=== PATIENT | female | born 2000 | race Caucasian/White ===

== ENCOUNTER 2021-11-14 11:34 | Emergency (ER) | payer OTHER, SELFPAY ==
--- NOTE | ~2021-11-14 | CT_ITS ---
EXAMINATION: CT HEAD WITHOUT CONTRAST CLINICAL INFORMATION: Headache COMPARISON: None TECHNIQUE: Contiguous axial imaging was performed from the skull base to vertex without intravenous administration of contrast. This CT examination was performed using dose optimization techniques as appropriate, variously including the following: *Automated exposure control *Adjustment of mA and/or kV according to patient size (this includes techniques or standardized protocols for targeted exams where dose is matched to indication/reason for exam; i.e. extremities or head) *Use of iterative reconstruction technique DLP: 698 mGy-cm FINDINGS: There is no evidence of acute intracranial hemorrhage or territorial infarction. No abnormal mass effect or midline shift is seen. Allen to white matter differentiation is well preserved. No extra-axial fluid collections are identified. The ventricles are normal in size. There is no abnormal attenuation within the brain parenchyma. The osseous structures and soft tissues are normal. The mastoid air cells and visualized portions of the paranasal sinuses are well aerated. CT/CT head/brain wo con IMPRESSION: No acute intracranial process seen.
[2021-11-14 11:53] VITALS: BP 114/81; PULSE 103; RESP 18; TEMP 36.9; O2SAT 100; BMI 46.4
[2021-11-14 12:18] LABS: MANUAL DIFF FLAG NO
[2021-11-14 12:19] LABS: Basophils Percent Auto 0.3 % (0-2); Eosinophils Absolute Auto 0.2 X10*3/uL (0.0-0.4); Eosinophils Percent Auto 1.9 % (0-4); Hematocrit 36.2 % (37.0-47.0); Hemoglobin 11.1 g/dl (12.0-16.0); Imm Gran Abs Auto 0.06 X10*3/uL (0.00-0.03); Imm Gran Pct Auto 0.6 % (0.0-0.4); Lymphocytes Absolute Auto 2.2 X10*3/uL (1.2-4.9); Mean Corpuscular HGB Conc 30.7 g/dl (31.0-35.0); Mean Corpuscular Hemoglobin 26.7 pg (27.0-33.0); Mean Platelet Volume 8.4 fL (9.4-12.3); Monocytes Absolute Auto 0.6 X10*3/uL (0.1-1.2); Monocytes Percent Auto 6.6 % (2-11); Neutrophils Absolute Auto 6.5 x10*3/uL (2.0-8.3); Neutrophils Percent Auto 67.6 % (45-73); Platelet Count 251 X10*3/uL (160-400); Red Blood Count 4.16 X10*6/uL (4.20-5.50); Red Cell Distribution Width 13.2 % (11.0-16.0); White Blood Count 9.6 X10*3/uL (4.8-10.8)
[2021-11-14 12:46] LABS: Anion Gap 12 (12-20); Blood Urea Nitrogen 16 mg/dL (9-16); Calcium 8.6 mg/dL (8.4-10.2); Carbon Dioxide 24 mmol/L (22-29); Chloride 104 mmol/L (96-108); Creatinine Clr Calc Pharmacy 122.9; Estimated Glomerular Filt Rate > 60; Glucose Random 78 mg/dL (60-115); Sodium 136 mmol/L (135-145)
[2021-11-14 15:26] VITALS: BP 125/74; PULSE 96; RESP 20; TEMP 36.8; O2SAT 100
[2021-11-14] MEDS: 0.9 % Sodium Chloride 1,000 ML 999 ML IV (15:39)
[2021-11-14] MEDS: ondansetron HCL 4 MG/2 ML VIAL IVPUSH (15:40)
[2021-11-14] MEDS: diphenhydrAMINE HCL 50 MG/ML VIAL 25 MG IVPUSH (15:41)
--- NOTE | 2021-11-14 15:49 | ED_ITS ---
HPI - Headache General Chief Complaint: Headache Stated Complaint: migraine, vomiting, blurred vision Time Seen by Provider: 11/14/21 15:35 Source: patient Mode of arrival: ambulatory Limitations: no limitations History of Present Illness HPI Narrative: 21-year-old female with long history of migraine came in for evaluation of headache. Patient woke up with headache at 03:00, headache to the entire head bilateral Jaws pain and teeth. Patient otherwise decline upper respiratory symptoms or exposure to sick c ontacts. Patient had previous workup for migraine (including LP at [facility]) which was unremarkable. Related Data Allergies Allergy/AdvReac Type Severity Reaction Status Date / Time menthol [From [facility]] Allergy Intermediate WELTS Verified 11/14/21 15:16 methyl salicylate Allergy Intermediate WELTS Verified 11/14/21 15:16 [From [facility]] Review of Systems Review of Systems: All other systems are reviewed and are negative Constitutional: Reports as per HPI and Reports no additional constitutional complaints Eyes: Reports as per HPI and Reports no additional eye complaints Reports system reviewed and no additional complaints, except as documented Cardiovascular: Reports as per HPI and Reports no additional cardiovascular complaints Respiratory: Reports as per HPI and Reports no additional respiratory complaints Gastrointestinal: Reports as per HPI and Reports no additional gastrointestinal complaints Genitourinary: Reports no additional female genitourinary complaints Musculoskeletal: Reports no additional musculoskeletal complaints Skin/Breast: Reports system reviewed and no additional complaints, except as docu Psychiatric: Reports no additional psychiatric complaints Endocrine: Reports no additional endocrine complaints Hematologic/Lymphatic: Reports no additional hematologic/lymphatic complaints Allergic/Immunologic: Reports no additional allergic/immunologic complaints Reports system reviewed and no additional complaints, except as documented and Reports Abnormal speech present [facility] Social History Social History Advance Directives: No Advance Directives Information Provided: No Physical Exam Vital Signs: Vital Signs: Last Vital Signs Temp 98.2 F 11/14/21 15:26 Pulse 96 11/14/21 15:26 Resp 20 11/14/21 15:26 BP 125/74 11/14/21 15:26 Pulse Ox 100 11/14/21 15:26 O2 Del Method 11/14/21 15:26 BMI result Body Mass Index 46.4 Vital signs have been reviewed as appeared to be correct. Blood pressure normal. Heart rate normal. Respiration rate normal. Temperature normal. Oxygen saturation normal. Appearance: Alert. Oriented X3. No acute distress. Head: Normal external exam. Normocephalic. Atraumatic. No [place]o signs noted. No raccoon eyes noted Eyes: PERRLA. EOMI. Conjunctiva and sclera normal. Eyelids normal. ENT: TM's Normal. Pharynx normal. Uvula midline. Moist mucous membranes. No trismus noted. No drooling noted. No muffled voice noted. Neck: Normal inspection. Neck supple. FROM. No adenopathy. Thyroid Normal. No meningeal signs. No neck mass noted. CVS: Normal heart rate and rhythm. Heart sound normal. No murmurs noted. Pulses normal throughout. Respiratory: No respiratory distress. Painless inspiration. Breath sounds normal. No wheezes/rales/rhonchi noted. Chest nontender. No accessory muscle usage noted or decreased air movement noted. Abdomen: Soft and nontender. Bowel sounds normal in all 4 quadrants. No distention noted. No organomegaly noted. No visible injury noted. Back: No CVA tenderness. Full range of motion noted. Skin: Skin warm and dry. Normal skin color. Normal skin turgor. No rashes/lesions/lacerations noted. Extremities: No lower extremity edema. Extremities exhibit normal range of motion. Extremities nontender. Neuro: Oriented X 3. Cranial nerve exam: II-XII are grossly intact No motor deficit. No sensory deficit. Reflexes normal. Course Course Course Narrative: 21-year-old female with history of migraine came in with headache since 03:00, patient had busy activity in the last 2 days including traveling and wedding alliance party, Patient received IV fluid/Zofran/Benadryl patient had a nap when she is in the emergency department now the headache went down from 10/10 to 3/10 now. No jacob sea, vomiting, blurry vision, repeat neuro exam is unremarkable. Patient was instructed to go home and sleep in a quiet and dark room, daily use phones or computer of TV tonight. MDM - Headache Lab Data Attestation: I reviewed the patient's lab results. Result diagrams: 11/14/21 12:14 11/14/21 12:14 Labs: Lab Results 11/14/21 11/14/21 11/14/21 Range/Units 12:14 12:14 15:55 WBC 9.6 (4.8-10.8) X10*3/uL RBC 4.16 L (4.20-5.50) X10*6/uL Hgb 11.1 L (12.0-16.0) g/dl Hct 36.2 L (37.0-47.0) % MCV 87.0 (80.0-98.0) fL MCH 26.7 L (27.0-33.0) pg MCHC 30.7 L (31.0-35.0) g/dl RDW 13.2 (11.0-16.0) % Plt Count 251 (160-400) X10*3/uL MPV 8.4 L (9.4-12.3) fL Immature Gran % (Auto) 0.6 H (0.0-0.4) % Neut % (Auto) 67.6 (45-73) % Lymph % (Auto) 23.0 (20-40) % [place] % (Auto) 6.6 (2-11) % Eos % (Auto) 1.9 (0-4) % Baso % (Auto) 0.3 (0-2) % Lymph # (Auto) 2.2 (1.2-4.9) X10*3/uL [place] # (Auto) 0.6 (0.1-1.2) X10*3/uL Eos # (Auto) 0.2 (0.0-0.4) X10*3/uL Baso # (Auto) 0.0 (0.0-0.2) X10*3/uL Abs Immat Gran (auto) 0.06 H (0.00-0.03) X10*3/uL Absolute Neuts (auto) 6.5 (2.0-8.3) x10*3/uL Absolute Nucleated RBC 0.000 (0.0-0.012) X10*3/uL Nucleated RBC % (auto) 0.0 (0.0-0.2) /100WBC Sodium 136 (135-145) mmol/L Potassium 4.0 (3.3-5.1) mmol/L Chloride 104 (96-108) mmol/L Carbon Dioxide 24 (22-29) mmol/L Anion Gap 12 (12-20) BUN 16 (9-16) mg/dL Creatinine 0.76 (0.5-1.4) mg/dL Estim Creat Clear Calc 122.9 Estimated GFR > 60 Random Glucose 78 (60-115) mg/dL Calcium 8.6 (8.4-10.2) mg/dL Urine Color Urine Appearance Urine pH (5.0-8.0) Ur Specific [place] (1.005-1.025) Urine Protein (NEG-TRACE) MG/DL Urine Glucose (UA) (NEG) MG/DL Urine Ketones (NEG) MG/DL Urine Blood (NEG) Urine Nitrite (NEG) Ur Leukocyte Esterase (NEG) Urine RBC (0) /HPF Urine WBC (0-4) /HPF Ur Squamous Epith Cells /LPF Urine Bacteria /LPF Urine Test (NEGATIVE) Influenza Type A (PCR) NEGATIVE (Negative) Influenza Type B (PCR) NEGATIVE (Negative) RSV RNA Qual (PCR) NEGATIVE (Negative) SARS-CoV-2 RNA (RT-PCR) NEGATIVE (Negative) 11/14/21 11/14/21 Range/Units 16:17 16:17 WBC (4.8-10.8) X10*3/uL RBC (4.20-5.50) X10*6/uL Hgb (12.0-16.0) g/dl Hct (37.0-47.0) % MCV (80.0-98.0) fL MCH (27.0-33.0) pg MCHC (31.0-35.0) g/dl RDW (11.0-16.0) % Plt Count (160-400) X10*3/uL MPV (9.4-12.3) fL Immature Gran % (Auto) (0.0-0.4) % Neut % (Auto) (45-73) % Lymph % (Auto) (20-40) % [place] % (Auto) (2-11) % Eos % (Auto) (0-4) % Baso % (Auto) (0-2) % Lymph # (Auto) (1.2-4.9) X10*3/uL [place] # (Auto) (0.1-1.2) X10*3/uL Eos # (Auto) (0.0-0.4) X10*3/uL Baso # (Auto) (0.0-0.2) X10*3/uL Abs Immat Gran (auto) (0.00-0.03) X10*3/uL Absolute Neuts (auto) (2.0-8.3) x10*3/uL Absolute Nucleated RBC (0.0-0.012) X10*3/uL Nucleated RBC % (auto) (0.0-0.2) /100WBC Sodium (135-145) mmol/L Potassium (3.3-5.1) mmol/L Chloride (96-108) mmol/L Carbon Dioxide (22-29) mmol/L Anion Gap (12-20) BUN (9-16) mg/dL Creatinine (0.5-1.4) mg/dL Estim Creat Clear Calc Estimated GFR Random Glucose (60-115) mg/dL Calcium (8.4-10.2) mg/dL Urine Color YELLOW Urine Appearance HAZY Urine pH 6.5 (5.0-8.0) Ur Specific [place] <= 1.005 (1.005-1.025) Urine Protein NEG (NEG-TRACE) MG/DL Urine Glucose (UA) NEG (NEG) MG/DL Urine Ketones NEG (NEG) MG/DL Urine Blood NEG (NEG) Urine Nitrite NEG (NEG) Ur Leukocyte Esterase TRACE H (NEG) Urine RBC 0 (0) /HPF Urine WBC 0-2 (0-4) /HPF Ur Squamous Epith Cells 2+ /LPF Urine Bacteria 1+ /LPF Urine Test NEGATIVE (NEGATIVE) Influenza Type A (PCR) (Negative) Influenza Type B (PCR) (Negative) RSV RNA Qual (PCR) (Negative) SARS-CoV-2 RNA (RT-PCR) (Negative) Imaging Data CT scan - head: Attestation: I personally reviewed and interpreted this imaging study as follows: Radiologist's impression: No acute pathology. Discharge Plan Discharge Clinical Impression: Headache Patient Disposition: Home, Self-Care Instructions: General Headache (ED) Referrals: Physician,Unknown J [Primary Care Provider] -
[2021-11-14 16:32] LABS: Appearance Urine HAZY; Color Urine YELLOW; Glucose Urine UA NEG (NEG); Leukocyte Esterase Urine TRACE (NEG); Nitrite Urine NEG (NEG); PH 6.5 (5.0-8.0); Specific Gravity - Urine <= 1.005 (1.005-1.025); Urine Blood NEG (NEG); Urine Ketones NEG (NEG); Urine Protein NEG (NEG-TRACE)
[2021-11-14 16:34] LABS: UPreg QC Valid YES; Urine Pregnancy NEGATIVE (NEGATIVE)
[2021-11-14 16:38] LABS: Influenza A PCR NEGATIVE (Negative); Influenza B PCR NEGATIVE (Negative); Resp Syncy Virus RNA Qual PCR NEGATIVE (Negative); SARS COV2 PCR INHOUSE NEGATIVE (Negative)
[2021-11-14 16:39] LABS: Bacteria Urine 1+ /LPF; RBC Urine 0 /HPF (0); Squamous Epithelial Cell Urine 2+ /LPF; WBC Urine 0-2 /HPF (0-4)
[2021-11-14] MEDS: Acetaminophen 325 MG TABLET 650 MG PO (18:34)
== END 2021-11-14 18:42 | disposition home or self-care (01) ==
PROVIDERS: Emergency Provider Emergency Medicine
DX: R51.9 Headache, unspecified (principal); Z20.822 Contact with and (suspected) exposure to COVID-19
CPT/HCPCS: 0241U; 36415; 70450; 80048; 81001; 81025; 85025; 96361; 96374; 96375; 99283; 99284; J1200; J2405

== ENCOUNTER 2022-03-31 09:58 | Emergency (ER) | payer OTHER, SELFPAY ==
[2022-03-31 10:03] VITALS: BP 108/44; PULSE 89; RESP 18; TEMP 36.7; O2SAT 97; BMI 46.4
--- NOTE | 2022-03-31 11:02 | ED_ITS ---
HPI - General Adult General Chief complaint: Abdominal Pain Stated complaint: blood in stools migraine Time Seen by Provider: 03/31/22 11:02 Source: patient Mode of arrival: ambulatory Limitations: no limitations History of Present Illness HPI narrative: Patient is a 22 year old assigned female at with a history of ulcerative colitis presenting to the emergency department today with abdominal pain, diarrhea, migraine, and nausea. Patient states that she usually gets infusions for her UC and she had one scheduled for Saturday but the medication came late so it is moved to next Saturday. Patient states that her flare has gotten too bad to wait until this coming Saturday. Patient states that she has had some blood in her stool and also has a migraine. Patient denies any dizziness, lightheadedness, vomiting, fever, chills, blurry vision, double vision, loss of vision, chest pain, difficulty breathing, shortness of breath, back pain, night sweats, pain with urination, increased urinary frequency, increased urinary urgency, blood in her urine, syncope or a near syncopal episode, recent trauma or falls, bowel incontinence, bladder incontinence, bowel retention, bladder retention, or any other complaints at this time. Onset (ago): day(s) Location: abdomen Radiation: non-radiation Severity: mild Severity scale (1-10): 3 Quality: aching Pain Consistency: constant Relieving factors: none Exacerbating factors: none Associated symptoms: nausea/vomiting Treatments prior to arrival: none Related Data Previous Rx's Medication Instructions Recorded cephalexin 500 mg capsule 500 mg PO Q6H 7 days #28 caps 03/31/22 prednisone 20 mg tablet 30 mg PO DAILY 5 days #8 tabs 03/31/22 Allergies Allergy/AdvReac Type Severity Reaction Status Date / Time menthol [From [facility]] Allergy Intermediate WELTS Verified 11/14/21 15:16 methyl salicylate Allergy Intermediate WELTS Verified 11/14/21 15:16 [From [facility]] Review of Systems Constitutional: Constitutional: Reports no additional constitutional complaints, Denies chills, Denies fever(s) and Denies night sweats Eyes: Eyes: Reports no additional eye complaints, Denies blurry vision, Denies change in vision, Denies diplopia, Denies eye discharge, Denies loss of vision and Denies eye pain ENT: Denies dizziness Cardiovascular: Cardiovascular: Reports no additional cardiovascular complaints, Denies chest pain, Denies lightheadedness, Denies Loss of Consciousness and Denies dyspnea Respiratory: Respiratory: Reports no additional respiratory complaints and Denies dyspnea Gastrointestinal: Gastrointestinal: Reports no additional gastrointestinal complaints, Reports abdominal pain, Denies melena, Reports hematochezia, Denies change in stool character, Reports diarrhea and Reports nausea Genitourinary: Genitourinary: Denies hematuria, Denies urinary frequency, Reports dysuria, Denies urinary incontinence, Denies urinary hesitancy and Denies urinary urgency Musculoskeletal: Musculoskeletal: Reports no additional musculoskeletal complaints, Denies numbness and Denies tingling Neurologic: Denies dizziness, Denies loss of vision, Denies numbness and Denies tingling Psychiatric: Psychiatric: Reports no additional psychiatric complaints Endocrine: Endocrine: Reports no additional endocrine complaints Hematologic/Lymphatic: Hematologic/Lymphatic: Reports no additional hematologic/lymphatic complaints Allergic/Immunologic: Allergic/Immunologic: Reports no additional allergic/immunologic complaints PMFSH Past Medical History Attestation statement: The following information was validated with the patient. Source: old records reviewed Social History Social History Patient Tobacco Use Status: Never used Tobacco Advance Directives: No Advance Directives Information Provided: No Patient : No Physical Exam ED Vital Signs: Vital Signs - 24 hr 03/31/22 10:03 03/31/22 11:05 03/31/22 12:00 Temperature 98.1 F 98.6 F Pulse Rate 89 94 83 Respiratory Rate 18 12 18 Blood Pressure 108/44 L 105/76 Pulse Oximetry 97 99 99 Oxygen Delivery Method Room Air Room Air Room Air BMI result Body Mass Index 46.4 Const General: cooperative, no acute distress, alert and awake Nutritional Appearance: well nourished Orientation/consciousness: patient oriented x3 Limitations: no limitations HENMT Head: Yes normal to inspection and Yes atraumatic Ears: hearing grossly normal bilaterally and external ears normal General nose exam: Normal external nose present, no nasal discharge noted and no epistaxis Face and sinus: Yes normal facial exam, No abrasion and No laceration Mouth: Normal oral and palatal mucosa present, no drooling and no muffled voice Eyes General: appearance normal, both eyes and all related structures Periorbital: periorbital findings normal Eyelids: Yes eyelids normal Conjunctivae: conjunctivae normal Pupils: Equal, round and reactive pupils present EOM: EOMs intact bilaterally Neck Neck: Yes normal visual inspection, Yes full ROM and Yes no lymphadenopathy Chest Chest palpation & inspection: normal inspection of the chest Resp Effort & Inspection: normal respiratory effort and able to speak in complete sentences Auscultation: clear to auscultation bilaterally Cardio Rate: regular rate Rhythm: regular rhythm GI Inspection: Yes normal to inspection Palpation (GI): Soft to palpation, not firm, Tenderness to palpation present (GI) other (diffuse), no guarding and not rigid Neuro General: patient oriented x3 and moves all extremities Cranial nerves: Yes Equal, round and reactive pupils present Cognition (Neuro): normal cognition Motor exam (neuro): 5/5 motor strength present throughout Sensory Exam: Normal double simultaneous stimulation for sensation Coordination: [id number] test normal Extrem General: Yes normal to inspection, Yes full ROM and Yes capillary refill normal Psych Appearance: grossly normal Mental Status: mental status grossly normal Affect: normal affect Attitude: cooperative Thought process: Normal thought process present Thought content: Normal thought content present Insight: Good insight present (Psych) Medical Decision Making [facility] Narrative Medical decision making narrative: Patient is a 22 year old assigned female at with a history of ulcerative colitis presenting to the emergency department today with an acute UC flare. Patient's physical exam showed tenderness to palpation throughout the abdomen but was otherwise unremarkable. Patient's blood work was unremarkable. Patient's urine showed an acute urinary tract infection. When reevaluated, the patient stated that she has been having some pain with urination and increase in urinary urgency. I explained my physical exam findings as well as all test results to the patient. I answered all questions asked by the patient. Patient received IV fluids, solu-medrol, benadryl, morphine, and reglan which she stated helped her symptoms significantly. I stressed the importance of the patient taking her medication as prescribed. I stressed the importance of the patient following up with her primary care provider. I stressed the importance of the patient returning to the emergency department immediately if her symptoms were to worsen or if she were to develop any dizziness, shortness of breath, difficulty breathing, chest pain, blurry vision, loss of vision, nausea, vomiting, abdominal pain, fever, chills, back pain, or any other complaints. Patient verbalized agreement and understanding with this treatment plan and discharge. Medical Records Medical records reviewed: Yes I reviewed the patient's medical records. Lab Data Lab results reviewed: Yes I reviewed the patient's lab results. Result diagrams: 03/31/22 11:48 03/31/22 11:48 Labs: Lab Results 03/31/22 03/31/22 03/31/22 Range/Units 11:20 11:48 11:48 WBC 6.1 (4.8-10.8) X10*3/uL RBC 4.65 (4.20-5.50) X10*6/uL Hgb 10.7 L (12.0-16.0) g/dl Hct 35.8 L (37.0-47.0) % MCV 77.0 L (80.0-98.0) fL MCH 23.0 L (27.0-33.0) pg MCHC 29.9 L (31.0-35.0) g/dl RDW 16.1 H (11.0-16.0) % Plt Count 278 (160-400) X10*3/uL MPV 8.6 L (9.4-12.3) fL Immature Gran % (Auto) 0.7 H (0.0-0.4) % Neut % (Auto) 87.4 H (45-73) % Lymph % (Auto) 4.9 L (20-40) % [place] % (Auto) 5.4 (2-11) % Eos % (Auto) 1.1 (0-4) % Baso % (Auto) 0.5 (0-2) % Lymph # (Auto) 0.3 L (1.2-4.9) X10*3/uL [place] # (Auto) 0.3 (0.1-1.2) X10*3/uL Eos # (Auto) 0.1 (0.0-0.4) X10*3/uL Baso # (Auto) 0.0 (0.0-0.2) X10*3/uL Abs Immat Gran (auto) 0.04 H (0.00-0.03) X10*3/uL Absolute Neuts (auto) 5.4 (2.0-8.3) x10*3/uL Absolute Nucleated RBC 0.000 (0.0-0.012) X10*3/uL Nucleated RBC % (auto) 0.0 (0.0-0.2) /100WBC Sodium 138 (135-145) mmol/L Potassium 4.4 (3.3-5.1) mmol/L Chloride 108 (96-108) mmol/L Carbon Dioxide 18 L (22-29) mmol/L Anion Gap 16 (12-20) BUN 12 (9-16) mg/dL Creatinine 0.89 (0.5-1.4) mg/dL Estim Creat Clear Calc 104.0 Estimated GFR > 60 Random Glucose 96 (60-115) mg/dL Calcium 8.5 (8.4-10.2) mg/dL Magnesium 2.1 (1.6-2.6) mg/dL Total Bilirubin 0.2 (0.0-1.0) mg/dL AST 19 (5-31) U/L ALT 17 (0-31) U/L Alkaline Phosphatase 58 (39-117) U/L Total Protein 7.3 (6.5-8.0) g/dL Albumin 4.0 (3.5-5.0) g/dL Urine Color Yellow Urine Appearance Cloudy Urine pH 7.5 (5.0-9.0) Ur Specific [place] 1.020 (1.005-1.025) Urine Protein Negative (Neg-Trace) mg/dL Urine Glucose (UA) Negative (Negative) mg/dL Urine Ketones Negative (Negative) mg/dL Urine Blood Moderate (2+) H (Negative) Urine Nitrite Negative (Negative) Ur Leukocyte Esterase Moderate (2+) H (Negative) Urine RBC 0-2 (0-2) /HPF Urine WBC 6-10 H (0-5) /HPF Ur Squamous Epith Cells 11-20 (0-2) /HPF Urine Bacteria 4+ (None Seen) Hyaline Casts 0-2 (0-2) /LPF Discharge Plan Discharge Clinical Impression: Ulcerative colitis, Urinary tract infection Patient Disposition: Home, Self-Care Instructions: Urinary Tract Infection in Women (ED), Ulcerative Colitis (ED) Additional Instructions: Follow up with your primary care provider and your GI specialist. Return to the emergency department immediately if your symptoms worsen or if you develop any dizziness, shortness of breath, difficulty breathing, chest pain, blurry vision, loss of vision, nausea, vomiting, abdominal pain, fever, chills, back pain, or any other complaints. Prescriptions: New prednisone 20 mg tablet 30 mg PO DAILY 5 Days Qty: 8 0RF cephalexin 500 mg capsule 500 mg PO Q6H 7 Days Qty: 28 0RF Referrals: [facility] [Provider Group] (Call to establish and follow up with a primary care provider. If you already have a primary care provider, please follow up with them. ) [facility] [place] [Provider Group] (Call to establish and follow up with a primary care provider. If you already have a primary care provider, please follow up with them. ) [facility] [Provider Group] (Call to establish and follow up with a primary care provider. If you already have a primary care provider, please follow up with them. ) Stand Alone Forms: Work/School Release Interventions: ED Discharge Assessment Last Done: 03/31/22 12:58 Discharge Date/Time: 03/31/22 13:02 Print Language: Kinyarwanda
[2022-03-31 11:05] VITALS: BP 105/76; PULSE 94; RESP 12; TEMP 37; O2SAT 99
[2022-03-31 11:29] LABS: Appearance Urine Cloudy; Color Urine Yellow; Glucose Urine UA Negative (Negative); Leukocyte Esterase Urine Moderate (2+) (Negative); Nitrite Urine Negative (Negative); PH 7.5 (5.0-9.0); UMIC TRIGGER UACC YES; Urine Blood Moderate (2+) (Negative); Urine Ketones Negative (Negative); Urine Protein Negative (Neg-Trace)
[2022-03-31 11:42] LABS: Bacteria Urine 4+ (None Seen); Hyaline Casts Urine 0-2 /LPF (0-2); RBC Urine 0-2 /HPF (0-2); UACC Culture Trigger YES
[2022-03-31 11:51] LABS: MANUAL DIFF FLAG NO
[2022-03-31 11:54] LABS: Basophils Percent Auto 0.5 % (0-2); Eosinophils Absolute Auto 0.1 X10*3/uL (0.0-0.4); Eosinophils Percent Auto 1.1 % (0-4); Hematocrit 35.8 % (37.0-47.0); Hemoglobin 10.7 g/dl (12.0-16.0); Imm Gran Abs Auto 0.04 X10*3/uL (0.00-0.03); Imm Gran Pct Auto 0.7 % (0.0-0.4); Lymphocytes Absolute Auto 0.3 X10*3/uL (1.2-4.9); Lymphocytes Percent Auto 4.9 % (20-40); Mean Corpuscular HGB Conc 29.9 g/dl (31.0-35.0); Mean Platelet Volume 8.6 fL (9.4-12.3); Monocytes Absolute Auto 0.3 X10*3/uL (0.1-1.2); Monocytes Percent Auto 5.4 % (2-11); Neutrophils Absolute Auto 5.4 x10*3/uL (2.0-8.3); Neutrophils Percent Auto 87.4 % (45-73); Platelet Count 278 X10*3/uL (160-400); Red Blood Count 4.65 X10*6/uL (4.20-5.50); Red Cell Distribution Width 16.1 % (11.0-16.0); White Blood Count 6.1 X10*3/uL (4.8-10.8)
[2022-03-31] MEDS: 0.9 % Sodium Chloride 1,000 ML 999 ML IV (11:56)
[2022-03-31] MEDS: diphenhydrAMINE HCL 50 MG/ML VIAL IVPUSH (11:58)
[2022-03-31] MEDS: Metoclopramide HCl 10 MG/2 ML VIAL IVPUSH (11:59)
[2022-03-31] MEDS: Morphine Sulfate 4 MG/ML CARTRIDGE IVPUSH (11:59)
[2022-03-31] MEDS: methylPREDNISolone Sod Succ 125 MG/2 ML VIAL 60 MG IVPUSH (11:59)
[2022-03-31 12:00] VITALS: PULSE 83; RESP 18; O2SAT 99
--- NOTE | 2022-03-31 12:05 | PC.NURSE ---
Pt alert and oriented, respirations even and unlabored. States that the abdominal pain is similar to past UC flare ups, also reports migraine. IV established and labs drawn and sent.
[2022-03-31 12:15] LABS: Alanine Aminotransferase 17 U/L (0-31); Alkaline Phosphatase 58 U/L (39-117); Anion Gap 16 (12-20); Aspartate Amino Transferase 19 U/L (5-31); Bilirubin Total 0.2 mg/dL (0.0-1.0); Blood Urea Nitrogen 12 mg/dL (9-16); Calcium 8.5 mg/dL (8.4-10.2); Carbon Dioxide 18 mmol/L (22-29); Chloride 108 mmol/L (96-108); Estimated Glomerular Filt Rate > 60; Glucose Random 96 mg/dL (60-115); Magnesium 2.1 mg/dL (1.6-2.6); Potassium 4.4 mmol/L (3.3-5.1); Sodium 138 mmol/L (135-145); Total Protein 7.3 g/dL (6.5-8.0)
== END 2022-03-31 13:02 | disposition home or self-care (01) ==
PROVIDERS: Physician Assistant Medical; Emergency Provider Emergency Medicine
DX: K51.90 Ulcerative colitis, unspecified, without complications (principal); N39.0 Urinary tract infection, site not specified; G43.909 Migraine, unspecified, not intractable, without status migrainosus; R31.9 Hematuria, unspecified; Z79.899 Other long term (current) drug therapy
CPT/HCPCS: 36415; 80053; 81001; 83735; 85025; 87086; 96361; 96374; 96375; 99284; J1200; J2270; J2765; J2930

== ENCOUNTER 2022-07-25 18:21 | Emergency (ER) | payer OTHER, SELFPAY ==
--- NOTE | ~2022-07-25 | US_ITS ---
EXAMINATION: US ABDOMEN LIMITED CLINICAL INFORMATION: Right upper quadrant pain, gallbladder. Abdominal pain x1 day. No history of stones. Family history of gallstones. No history of surgery. COMPARISON: CT dated 2199 TECHNIQUE: Real-time imaging of the right upper quadrant abdominal viscera. FINDINGS: GALLBLADDER: Normal. The gallbladder is physiologically distended without evidence of stones, sludge, polyps, wall thickening or pericholecystic fluid. COMMON BILE DUCT: Normal in caliber measuring 0.4 cm in diameter. FREE FLUID: None. US/US abdomen limited IMPRESSION: Normal gallbladder. No cholelithiasis. No biliary ductal dilatation.
--- NOTE | ~2022-07-25 | CT_ITS ---
EXAMINATION: CT ABDOMEN AND PELVIS WITHOUT CONTRAST CLINICAL INFORMATION: Right-sided abdominal pain COMPARISON: None TECHNIQUE: Multidetector volumetric imaging was performed from the superior aspect of the liver through the pubic symphysis. Sagittal and coronal reformatted images were obtained on the technologist's workstation. This CT examination was performed using dose optimization techniques as appropriate, variously including the following: *Automated exposure control *Adjustment of mA and/or kV according to patient size (this includes techniques or standardized protocols for targeted exams where dose is matched to indication/reason for exam; i.e. extremities or head) *Use of iterative reconstruction technique DLP: 979 mGy-cm FINDINGS: LUNG BASES: The visualized lung bases are unremarkable. LIVER, GALLBLADDER, AND BILIARY TREE: The liver is normal in size, shape, and attenuation. No focal hepatic lesion or biliary ductal dilatation is present. The gallbladder is unremarkable with no evidence of radiopaque gallstones, gallbladder wall thickening, or obvious pericholecystic inflammatory changes. PANCREAS: Unremarkable. SPLEEN: Unremarkable. ADRENAL GLANDS: Unremarkable. KIDNEYS AND URETERS: The kidneys are normal in size, shape, and attenuation. No hydronephrosis, hydroureter, or calculi seen. No perinephric stranding. BLADDER: Unremarkable. GASTROINTESTINAL TRACT: The small and large bowel are unremarkable. The appendix is unremarkable. ABDOMINAL WALL: No significant hernia is appreciated. LYMPH NODES: Normal. VASCULAR: Unremarkable. PELVIC VISCERA: Unremarkable. OSSEOUS STRUCTURES: Unremarkable. CT/CT abdomen pelvis wo IV con IMPRESSION: No significant abnormality. Fleischner guidelines were followed.
[2022-07-25 18:44] VITALS: BP 127/68; PULSE 84; RESP 16; TEMP 37.2; O2SAT 100; BMI 46.4
--- NOTE | 2022-07-25 18:45 | ED_ITS ---
HPI - Abdominal Pain General Chief Complaint: Abdominal Pain <JAYSHREE Tijerina - Last Filed: 07/26/22 19:00> Stated Complaint: Sharp stomach pains <JAYSHREE Tijerina - Last Filed: 07/26/22 19:00> Time Seen by Provider: 07/25/22 22:53 <JAYSHREE Tijerina - Last Filed: 07/26/22 19:00> Source: patient <Leonor Lai MD - Last Filed: 07/31/22 16:16> Mode of arrival: ambulatory <Leonor Lai MD - Last Filed: 07/31/22 16:16> History of Present Illness HPI narrative: 22-year-old female with history of ulcerative colitis presents with right upper quadrant abdominal discomfort as well as nausea but denies any vomiting, fever, chills and denies any urinary pain/burning/frequency. Patient also denies any recent increase in bowel movement frequency or blood in her stools. <Leonor Lai MD - Last Filed: 07/31/22 16:16> Related Data Home Medications: Previous Rx's Medication Instructions Recorded cephalexin 500 mg capsule 500 mg PO Q6H 7 days #28 caps 03/31/22 prednisone 20 mg tablet 30 mg PO DAILY 5 days #8 tabs 03/31/22 <JAYSHREE Tijerina - Last Filed: 07/26/22 19:00> Allergies/Adverse Reactions: Allergies Allergy/AdvReac Type Severity Reaction Status Date / Time menthol [From ICY HOT] Allergy Intermediate WELTS Verified 11/14/21 15:16 methyl salicylate Allergy Intermediate WELTS Verified 11/14/21 15:16 [From ICY HOT] <JAYSHREE Tijerina - Last Filed: 07/26/22 19:00> Review of Systems Review of Systems Pertinent positives and negatives as stated in HPI <Leonor Lai MD - Last Filed: 07/31/22 16:16> PMFSH Past Medical History Source: nursing notes reviewed <Leonor Lai MD - Last Filed: 07/31/22 16:16> Social History Social History: Social History Patient Tobacco Use Status: Never used Tobacco Advance Directives: No Advance Directives Information Provided: No <JAYSHREE Tijerina - Last Filed: 07/26/22 19:00> Physical Exam ED Vital Signs: Vital Signs - 24 hr 07/26/22 00:31 Temperature 98.2 F Pulse Rate 102 H Respiratory Rate 18 Blood Pressure 117/83 Pulse Oximetry 99 Oxygen Delivery Method Room Air BMI result Body Mass Index 46.4 <JAYSHREE Tijerina - Last Filed: 07/26/22 19:00> Vital Signs - 24 hr 07/26/22 00:31 Temperature 98.2 F Pulse Rate 102 H Respiratory Rate 18 Blood Pressure 117/83 Pulse Oximetry 99 Oxygen Delivery Method Room Air BMI result Body Mass Index 46.4 VITAL SIGNS: Reviewed. GENERAL: Well developed, well nourished, in no acute distress. HEAD: Normocephalic/atraumatic EYES: PERRLA, EOMI LUNGS: Normal breath sounds. No adventitious sounds or accessory muscle use. SpO2<100> CARDIOVASCULAR: Regular rate and rhythm without noted murmurs ABDOMEN: Soft, non-tender, non-distended with bowel sounds. MUSCULOSKELETAL: No tenderness, deformities, or effusions noted on gross inspection. EXTREMITIES: No cyanosis, clubbing or edema. SKIN: Inspection of the skin reveals no rashes NEUROLOGIC: Alert and oriented x 4. Strength and sensation to light touch were grossly intact x 4. <Leonor Lai MD - Last Filed: 07/31/22 16:16> Course Course Course Narrative: RME - 22 y/o female presenting today with complaints of right sided abdominal pain since today. Hx of ulcerative colitis. +diarrhea, no blood. +nausea, no vomiting. Sees [facility] in [place] [facility] on the entire right upper and right lower abdomen. VSS in triage. Labs and CT abdomen ordered. Patient is stable to return to the waiting room until a treatment room becomes available. <JAYSHREE Tijerina - Last Filed: 07/26/22 19:00> Medical Decision Making Medical Decision Making [facility] Narrative: 2315: 22-year-old female who appears mildly uncomfortable and her history and clinical presentation are most suggestive of a possible cholecystitis or possible pyelonephritis. On review of her prior documentation and workups she does have a history of significant UTI although she denies any current dysuria. Will pursue ultrasound of the right upper quadrant/gallbladder as well as encouraged the patient to provide a urine sample. Patient otherwise appears well. Reviewed all investigations and my interpretation is this may be musculoskeletal in nature as there is no evidence to suggest cholecystitis, pyelonephritis, renal colic. I re-evaluated the patient after she received Zofran and she states she is feeling much better and she was discharged with instructions to follow-up with her primary care provider and was discharged with script for Zofran, it was a paper script. She was discharged at 02:05 with the prescription. This was a down time chart completion. <Leonor Lai MD - Last Filed: 07/31/22 16:16> Differential Diagnosis Differential Diagnoses: The differential diagnosis associated with the presentation includes <Leonor Lai MD - Last Filed: 07/31/22 16:16> Please see the discussion above <Leonor Lai MD - Last Filed: 07/31/22 16:16> Lab Data MDM Lab Attestation statement: I reviewed the patient's lab results. <Leonor Lai MD - Last Filed: 07/31/22 16:16> Please see the discussion above <Leonor Lai MD - Last Filed: 07/31/22 16:16> Result Diagrams: 07/25/22 18:57 07/25/22 18:57 <JAYSHREE Tijerina - Last Filed: 07/26/22 19:00> Labs: Lab Results 07/25/22 07/25/22 07/25/22 Range/Units 18:57 18:57 18:57 WBC 8.4 (4.8-10.8) X10*3/uL RBC 5.34 (4.20-5.50) X10*6/uL Hgb 11.6 L (12.0-16.0) g/dl Hct 38.6 (37.0-47.0) % MCV 72.3 L (80.0-98.0) fL MCH 21.7 L (27.0-33.0) pg MCHC 30.1 L (31.0-35.0) g/dl RDW 15.3 (11.0-16.0) % Plt Count 370 D (160-400) X10*3/uL MPV 8.5 L (9.4-12.3) fL Immature Gran % (Auto) 0.2 (0.0-0.4) % Neut % (Auto) 74.7 H (45-73) % Lymph % (Auto) 18.4 L (20-40) % [place] % (Auto) 3.8 (2-11) % Eos % (Auto) 2.4 (0-4) % Baso % (Auto) 0.5 (0-2) % Lymph # (Auto) 1.5 (1.2-4.9) X10*3/uL [place] # (Auto) 0.3 (0.1-1.2) X10*3/uL Eos # (Auto) 0.2 (0.0-0.4) X10*3/uL Baso # (Auto) 0.0 (0.0-0.2) X10*3/uL Abs Immat Gran (auto) 0.02 (0.00-0.03) X10*3/uL Absolute Neuts (auto) 6.3 (2.0-8.3) x10*3/uL Absolute Nucleated RBC 0.000 (0.0-0.012) X10*3/uL Nucleated RBC % (auto) 0.0 (0.0-0.2) /100WBC Sodium 140 (135-145) mmol/L Potassium 4.3 (3.3-5.1) mmol/L Chloride 108 (96-108) mmol/L Carbon Dioxide 26 (22-29) mmol/L Anion Gap 10 L (12-20) BUN 14 (9-16) mg/dL Creatinine 0.81 (0.5-1.4) mg/dL Estim Creat Clear Calc 114.3 Estimated GFR > 60 Random Glucose 98 (60-115) mg/dL Calcium 9.0 (8.4-10.2) mg/dL Magnesium 1.9 (1.6-2.6) mg/dL Total Bilirubin 0.2 (0.0-1.0) mg/dL Direct Bilirubin < 0.2 (0.0-0.5) mg/dL AST 16 (5-31) U/L ALT 22 (0-31) U/L Alkaline Phosphatase 72 (39-117) U/L Total Protein 7.2 (6.5-8.0) g/dL Albumin 4.0 (3.5-5.0) g/dL Lipase 17 (8-78) U/L Beta HCG, Quant < 2 mIU/mL <JAYSHREE Tijerina - Last Filed: 07/26/22 19:00> Lab Results 07/25/22 07/25/22 07/25/22 Range/Units 18:57 18:57 18:57 WBC 8.4 (4.8-10.8) X10*3/uL RBC 5.34 (4.20-5.50) X10*6/uL Hgb 11.6 L (12.0-16.0) g/dl Hct 38.6 (37.0-47.0) % MCV 72.3 L (80.0-98.0) fL MCH 21.7 L (27.0-33.0) pg MCHC 30.1 L (31.0-35.0) g/dl RDW 15.3 (11.0-16.0) % Plt Count 370 D (160-400) X10*3/uL MPV 8.5 L (9.4-12.3) fL Immature Gran % (Auto) 0.2 (0.0-0.4) % Neut % (Auto) 74.7 H (45-73) % Lymph % (Auto) 18.4 L (20-40) % [place] % (Auto) 3.8 (2-11) % Eos % (Auto) 2.4 (0-4) % Baso % (Auto) 0.5 (0-2) % Lymph # (Auto) 1.5 (1.2-4.9) X10*3/uL [place] # (Auto) 0.3 (0.1-1.2) X10*3/uL Eos # (Auto) 0.2 (0.0-0.4) X10*3/uL Baso # (Auto) 0.0 (0.0-0.2) X10*3/uL Abs Immat Gran (auto) 0.02 (0.00-0.03) X10*3/uL Absolute Neuts (auto) 6.3 (2.0-8.3) x10*3/uL Absolute Nucleated RBC 0.000 (0.0-0.012) X10*3/uL Nucleated RBC % (auto) 0.0 (0.0-0.2) /100WBC Sodium 140 (135-145) mmol/L Potassium 4.3 (3.3-5.1) mmol/L Chloride 108 (96-108) mmol/L Carbon Dioxide 26 (22-29) mmol/L Anion Gap 10 L (12-20) BUN 14 (9-16) mg/dL Creatinine 0.81 (0.5-1.4) mg/dL Estim Creat Clear Calc 114.3 Estimated GFR > 60 Random Glucose 98 (60-115) mg/dL Calcium 9.0 (8.4-10.2) mg/dL Magnesium 1.9 (1.6-2.6) mg/dL Total Bilirubin 0.2 (0.0-1.0) mg/dL Direct Bilirubin < 0.2 (0.0-0.5) mg/dL AST 16 (5-31) U/L ALT 22 (0-31) U/L Alkaline Phosphatase 72 (39-117) U/L Total Protein 7.2 (6.5-8.0) g/dL Albumin 4.0 (3.5-5.0) g/dL Lipase 17 (8-78) U/L Beta HCG, Quant < 2 mIU/mL <Leonor Lai MD - Last Filed: 07/31/22 16:16> Discharge Plan Discharge Clinical Impression: Right flank pain <JAYSHREE Tijerina - Last Filed: 07/26/22 19:00> Patient Disposition: Home, Self-Care <JAYSHREE Tijerina - Last Filed: 07/26/22 19:00> Instructions: Flank Pain (ED) <JAYSHREE Tijerina - Last Filed: 07/26/22 19:00> Additional Instructions: 1. Recommend [id number] Tylenol/ibuprofen as needed for pain control. 2. Follow-up with your primary care provider by calling the office 1st thing in the morning for further workup and evaluation. Return to the ER for any worsening symptoms. <JAYSHREE Tijerina - Last Filed: 07/26/22 19:00> Prescriptions: No Action prednisone 20 mg tablet 30 mg PO DAILY 5 Days Qty: 8 0RF cephalexin 500 mg capsule 500 mg PO Q6H 7 Days Qty: 28 0RF <JAYSHREE Tijerina - Last Filed: 07/26/22 19:00> Discharge Date/Time: 07/26/22 02:57 <JAYSHREE Tijerina - Last Filed: 07/26/22 19:00>
[2022-07-25 19:02] LABS: Basophils Percent Auto 0.5 % (0-2); Eosinophils Absolute Auto 0.2 X10*3/uL (0.0-0.4); Eosinophils Percent Auto 2.4 % (0-4); Hematocrit 38.6 % (37.0-47.0); Hemoglobin 11.6 g/dl (12.0-16.0); Imm Gran Abs Auto 0.02 X10*3/uL (0.00-0.03); Imm Gran Pct Auto 0.2 % (0.0-0.4); Lymphocytes Absolute Auto 1.5 X10*3/uL (1.2-4.9); Lymphocytes Percent Auto 18.4 % (20-40); MANUAL DIFF FLAG NO; Mean Corpuscular HGB Conc 30.1 g/dl (31.0-35.0); Mean Corpuscular Hemoglobin 21.7 pg (27.0-33.0); Mean Corpuscular Volume 72.3 fL (80.0-98.0); Mean Platelet Volume 8.5 fL (9.4-12.3); Monocytes Absolute Auto 0.3 X10*3/uL (0.1-1.2); Monocytes Percent Auto 3.8 % (2-11); Neutrophils Absolute Auto 6.3 x10*3/uL (2.0-8.3); Neutrophils Percent Auto 74.7 % (45-73); Platelet Count 370 X10*3/uL (160-400); Red Blood Count 5.34 X10*6/uL (4.20-5.50); Red Cell Distribution Width 15.3 % (11.0-16.0); White Blood Count 8.4 X10*3/uL (4.8-10.8)
[2022-07-25 19:19] LABS: Alanine Aminotransferase 22 U/L (0-31); Alkaline Phosphatase 72 U/L (39-117); Anion Gap 10 (12-20); Aspartate Amino Transferase 16 U/L (5-31); Bilirubin Direct < 0.2 mg/dL (0.0-0.5); Bilirubin Total 0.2 mg/dL (0.0-1.0); Blood Urea Nitrogen 14 mg/dL (9-16); Carbon Dioxide 26 mmol/L (22-29); Chloride 108 mmol/L (96-108); Creatinine Clr Calc Pharmacy 114.3; Estimated Glomerular Filt Rate > 60; Glucose Random 98 mg/dL (60-115); Magnesium 1.9 mg/dL (1.6-2.6); Potassium 4.3 mmol/L (3.3-5.1); Sodium 140 mmol/L (135-145); Total Protein 7.2 g/dL (6.5-8.0)
[2022-07-25 19:30] LABS: HCG Quantitative < 2 mIU/mL
[2022-07-25 23:19] LABS: Lipase 17 U/L (8-78)
[2022-07-26 00:31] VITALS: BP 117/83; PULSE 102; RESP 18; TEMP 36.8; O2SAT 99
--- NOTE | 2022-07-26 05:09 | MHC.EDTECH ---
see paper chart
== END 2022-07-26 02:57 | disposition home or self-care (01) ==
PROVIDERS: Physician Assistant; Emergency Provider Student in an Organized Health Care Education/Training Program
DX: R10.11 Right upper quadrant pain (principal); R11.2 Nausea with vomiting, unspecified; Z79.899 Other long term (current) drug therapy
CPT/HCPCS: 36415; 74176; 76705; 80048; 80076; 83690; 83735; 84702; 85025; 99282; 99284

== ENCOUNTER 2023-01-07 08:34 | Emergency (ER) | payer OTHER, SELFPAY ==
[2023-01-07 08:41] VITALS: BP 118/82; PULSE 79; RESP 16; TEMP 36.4; O2SAT 99; BMI 46.4
--- NOTE | 2023-01-07 09:43 | ED.GENADULT ---
HPI - General Adult General Chief complaint: General Medical Stated complaint: Sun poisoning Time Seen by Provider: 01/07/23 09:43 Source: patient, RN notes reviewed and old records reviewed Mode of arrival: ambulatory History of Present Illness HPI narrative: 22 year old female w/ no significant pmhx presents to the ED today for complaints of suspected sun poisoning s/p hours of sun exposure at beach yesterday. Admits she used SPF 50 and reapplied x3. Reports nausea, nonbloody emesis x4, abdominal discomfort and chills. She denies drinking and use of recreational drugs, any use of photosensitive drugs, or hx of similar events. She is currently unable to tolerate anything PO. Onset (ago): day(s) (1) Related Data Previous Rx's Medication Instructions Recorded cephalexin 500 mg capsule 500 mg PO Q6H 7 days #28 caps 03/31/22 prednisone 20 mg tablet 30 mg PO DAILY 5 days #8 tabs 03/31/22 ondansetron 4 mg disintegrating 4 mg PO Q8H PRN nausea and 01/07/23 tablet vomiting #10 tabs Allergies Allergy/AdvReac Type Severity Reaction Status Date / Time menthol [From Sistemic] Allergy Intermediate WELTS Verified 11/14/21 15:16 methyl salicylate Allergy Intermediate WELTS Verified 11/14/21 15:16 [From Sistemic] Review of Systems Review of Systems: Constitutional: No Fever, + Chills, No Fatigue, No Malaise ENT/Mouth: No Ear Pain, No Nasal Congestion, No Sinus Pain, No Hoarseness, No sore throat, No Rhinorrhea, No Swallowing Difficulty Eyes: No Eye Pain, No Swelling, No Vision Changes Cardiovascular: No Chest Pain, No SOB, No Edema, No Palpitations Respiratory: No Cough, No Sputum, No Dyspnea Gastrointestinal: + Nausea, + Vomiting, No Diarrhea, No Constipation, + Abdominal pain Genitourinary: No irregular bleeding, No Dysuria, No Urinary Frequency, No Hematuria, No Flank Pain Musculoskeletal: No joint pain, No Myalgias, No Joint Swelling Skin: No Skin Lesions, No rash Neuro: No Weakness,No Headache Yes all other systems are reviewed and are negative Constitutional: Constitutional: Reports as per [facility] Past Medical History Attestation statement: The following information was validated with the patient. Source: old records reviewed Social History Social History Patient Tobacco Use Status: Never used Tobacco Advance Directives: No Advance Directives Information Provided: No Physical Exam ED Vital Signs: Vital Signs - 24 hr 01/07/23 08:41 Temperature 97.5 F Pulse Rate 79 Respiratory Rate 16 Blood Pressure 118/82 Pulse Oximetry 99 Oxygen Delivery Method Room Air BMI result Body Mass Index 46.4 Const General: cooperative, healthy appearing and no acute distress Orientation/consciousness: patient oriented x3 Limitations: no limitations HENMT Head: Yes normal to inspection and Yes atraumatic Ears: hearing grossly normal bilaterally General nose exam: Normal external nose present Face and sinus: Yes normal facial exam Eyes General: appearance normal, both eyes and all related structures EOM: EOMs intact bilaterally Neck Neck: Yes normal visual inspection and Yes no meningeal signs Chest Chest palpation & inspection: normal inspection of the chest Resp Effort & Inspection: normal respiratory effort and no respiratory distress Auscultation: clear to auscultation bilaterally Cardio Rate: regular rate Heart sounds: S1 normal heart sound present and S2 normal heart sound present GI Inspection: Yes normal to inspection Palpation (GI): Soft to palpation, nontender, no guarding and not rigid General: Yes no CVA tenderness Back/Spine/Pelvis Back: no CVA tenderness Skin Other: Diffuse areas of superficial haque noted on face, trunk, and jossue UE/LE. No blistering/sloughing or drainage present. Warm/mildly tender to touch. Not circumferential, compartments soft Wounds: no wounds Neuro General: patient oriented x3, tone normal and no meningeal signs Gait exam (Neuro): Normal gait present Extrem General: Yes normal to inspection Course Course Course Narrative: -1152--no leukocytosis. H&H at patient's baseline. Labs otherwise reassuring. -UA not infected > results discussed with patient, tolerating p.o. in the ED, recommended continued lotion, patient states she is allergic to aloe and avoidance of sun Results discussed with patient including worrisome signs and symptoms and strict return precautions, and when to return to the emergency department. They verbalized understanding and feel safe for discharge at this time. Medications Administered Discontinued Medications Generic Name Dose Route Start Last Admin Trade Name Freq PRN Reason Stop Dose Admin Famotidine 20 mg 01/07/23 09:49 01/07/23 10:25 Famotidine/Pf 20 Mg/2 Ml Vial IVPUSH 01/07/23 09:50 20 mg ONCE ONE Administration Sodium Chloride 1,000 mls @ 999 mls/hr 01/07/23 10:00 01/07/23 11:48 Ns IV 01/07/23 11:00 Infused .Q1H1M RAH Infusion Ondansetron HCl 4 mg 01/07/23 09:49 01/07/23 10:32 Ondansetron Hcl 4 Mg/2 Ml Vial IVPUSH 01/07/23 09:50 4 mg ONCE ONE Administration Medical Decision Making Medical Decision Making MDM Narrative: 22 year old female w/ no significant pmhx presents to the ED today for complaints of suspected sun poisoning s/p hours of sun exposure at beach yesterday. On exam VSS, NAD, diffuse superficial sunburn noted as above, without blistering. Concern for superficial haque. No evidence of second-degree burn, unlikely cellulitis, acute contact dermatitis, SLE, or phytophotodermatitis based on hx and clinical presentation. No evidence of compartment syndrome Plan: IV for fluids, Zofran for nausea, Labs (CBC, electrolytes, mag, UA, urine hcg), p.o. challenge Please refer to course for remaining clinical decision making, interpretation of labs/imaging results, and discussions with consultants and/or family members. Differential Diagnosis Differential Diagnoses: The differential diagnosis associated with the presentation includes As above Admission/Observation Consideration of admission/observation: Escalation of care including admission/observation considered Lab Data [facility] Lab Attestation statement: I reviewed the patient's lab results. 01/07/23 11:19 01/07/23 11:19 Labs: Lab Results 01/07/23 01/07/23 01/07/23 Range/Units 11:19 11:19 11:19 WBC 6.9 (4.8-10.8) X10*3/uL RBC 4.91 (4.20-5.50) X10*6/uL Hgb 11.9 L (12.0-16.0) g/dl Hct 39.1 (37.0-47.0) % MCV 79.6 L (80.0-98.0) fL MCH 24.2 L (27.0-33.0) pg MCHC 30.4 L (31.0-35.0) g/dl RDW 16.1 H (11.0-16.0) % Plt Count 319 (160-400) X10*3/uL MPV 8.8 L (9.4-12.3) fL Immature Gran % (Auto) 0.1 (0.0-0.4) % Neut % (Auto) 65.5 (45-73) % Lymph % (Auto) 22.0 (20-40) % [place] % (Auto) 7.2 (2-11) % Eos % (Auto) 4.8 H (0-4) % Baso % (Auto) 0.4 (0-2) % Lymph # (Auto) 1.5 (1.2-4.9) X10*3/uL [place] # (Auto) 0.5 (0.1-1.2) X10*3/uL Eos # (Auto) 0.3 (0.0-0.4) X10*3/uL Baso # (Auto) 0.0 (0.0-0.2) X10*3/uL Abs Immat Gran (auto) 0.01 (0.00-0.03) X10*3/uL Absolute Neuts (auto) 4.5 (2.0-8.3) x10*3/uL Absolute Nucleated RBC 0.000 (0.0-0.012) X10*3/uL Nucleated RBC % (auto) 0.0 (0.0-0.2) /100WBC Sodium 138 (135-145) mmol/L Potassium 4.1 (3.3-5.1) mmol/L Chloride 108 (96-108) mmol/L Carbon Dioxide 20 L (22-29) mmol/L Anion Gap 14 (12-20) BUN 13 (9-16) mg/dL Creatinine 0.72 (0.5-1.4) mg/dL Estim Creat Clear Calc 128.6 Estimated GFR > 60 Random Glucose 83 (60-115) mg/dL Calcium 8.5 (8.4-10.2) mg/dL Magnesium 2.1 (1.6-2.6) mg/dL Total Bilirubin 0.5 (0.0-1.0) mg/dL Direct Bilirubin 0.2 (0.0-0.5) mg/dL AST 15 (5-31) U/L ALT 18 (0-31) U/L Alkaline Phosphatase 69 (39-117) U/L Total Protein 7.4 (6.5-8.0) g/dL Albumin 4.0 (3.5-5.0) g/dL Urine Color Yellow Urine Appearance Cloudy Urine pH 8.5 (5.0-9.0) Ur Specific [place] >= 1.030 H (1.005-1.025) Urine Protein Trace (Neg-Trace) mg/dL Urine Glucose (UA) Negative (Negative) mg/dL Urine Ketones Negative (Negative) mg/dL Urine Blood Negative (Negative) Urine Nitrite Negative (Negative) Ur Leukocyte Esterase Trace H (Negative) Urine RBC 0-2 (0-2) /HPF Urine WBC 0-5 (0-5) /HPF Ur Squamous Epith Cells 6-10 (0-2) /HPF Urine Bacteria 2+ (None Seen) Hyaline Casts 0-2 (0-2) /LPF Urine Test (NEGATIVE) 01/07/23 Range/Units 11:19 WBC (4.8-10.8) X10*3/uL RBC (4.20-5.50) X10*6/uL Hgb (12.0-16.0) g/dl Hct (37.0-47.0) % MCV (80.0-98.0) fL MCH (27.0-33.0) pg MCHC (31.0-35.0) g/dl RDW (11.0-16.0) % Plt Count (160-400) X10*3/uL MPV (9.4-12.3) fL Immature Gran % (Auto) (0.0-0.4) % Neut % (Auto) (45-73) % Lymph % (Auto) (20-40) % [place] % (Auto) (2-11) % Eos % (Auto) (0-4) % Baso % (Auto) (0-2) % Lymph # (Auto) (1.2-4.9) X10*3/uL [place] # (Auto) (0.1-1.2) X10*3/uL Eos # (Auto) (0.0-0.4) X10*3/uL Baso # (Auto) (0.0-0.2) X10*3/uL Abs Immat Gran (auto) (0.00-0.03) X10*3/uL Absolute Neuts (auto) (2.0-8.3) x10*3/uL Absolute Nucleated RBC (0.0-0.012) X10*3/uL Nucleated RBC % (auto) (0.0-0.2) /100WBC Sodium (135-145) mmol/L Potassium (3.3-5.1) mmol/L Chloride (96-108) mmol/L Carbon Dioxide (22-29) mmol/L Anion Gap (12-20) BUN (9-16) mg/dL Creatinine (0.5-1.4) mg/dL Estim Creat Clear Calc Estimated GFR Random Glucose (60-115) mg/dL Calcium (8.4-10.2) mg/dL Magnesium (1.6-2.6) mg/dL Total Bilirubin (0.0-1.0) mg/dL Direct Bilirubin (0.0-0.5) mg/dL AST (5-31) U/L ALT (0-31) U/L Alkaline Phosphatase (39-117) U/L Total Protein (6.5-8.0) g/dL Albumin (3.5-5.0) g/dL Urine Color Urine Appearance Urine pH (5.0-9.0) Ur Specific [place] (1.005-1.025) Urine Protein (Neg-Trace) mg/dL Urine Glucose (UA) (Negative) mg/dL Urine Ketones (Negative) mg/dL Urine Blood (Negative) Urine Nitrite (Negative) Ur Leukocyte Esterase (Negative) Urine RBC (0-2) /HPF Urine WBC (0-5) /HPF Ur Squamous Epith Cells (0-2) /HPF Urine Bacteria (None Seen) Hyaline Casts (0-2) /LPF Urine Test NEGATIVE (NEGATIVE) Radiology Impression Discussion of test interpretation with radiology: I have reviewed the radiologist's reading. External Record Review External record reviewed: Inpatient record, Office record, Outpatient record, Prior outpatient labs, Prior outpatient radiology, Primary care record and Outside ED record Tests considered The following testing was considered but not selected: As above Discharge Plan Discharge Clinical Impression: Sunburn Patient Disposition: Home, Self-Care Instructions: Sunburn (ED) Additional Instructions: Your blood work and urine were reassuring Make sure your staying hydrated at home Zofran as an antinausea medication, take as needed Apply lotion to her body Avoid the sun Follow-up with her doctor If symptoms persist or worsen your unable to eat or drink return to the ED Prescriptions: New ondansetron 4 mg tablet,disintegrating 4 mg PO Q8H PRN (Reason: nausea and vomiting) Qty: 10 0RF No Action prednisone 20 mg tablet 30 mg PO DAILY 5 Days Qty: 8 0RF cephalexin 500 mg capsule 500 mg PO Q6H 7 Days Qty: 28 0RF Referrals: Physician,Unknown J [Primary Care Provider] - 5 days Interventions: ED Discharge Assessment Last Done: 01/07/23 12:08 Discharge Date/Time: 01/07/23 12:08
[2023-01-07] MEDS: Famotidine/PF 20 MG/2 ML VIAL IVPUSH (10:25)
[2023-01-07] MEDS: 0.9 % Sodium Chloride 1,000 ML 999 ML IV (10:25)
[2023-01-07] MEDS: ondansetron HCL 4 MG/2 ML VIAL IVPUSH (10:32)
[2023-01-07 11:24] LABS: MANUAL DIFF FLAG NO
[2023-01-07 11:26] LABS: Basophils Percent Auto 0.4 % (0-2); Eosinophils Absolute Auto 0.3 X10*3/uL (0.0-0.4); Eosinophils Percent Auto 4.8 % (0-4); Hematocrit 39.1 % (37.0-47.0); Hemoglobin 11.9 g/dl (12.0-16.0); Imm Gran Abs Auto 0.01 X10*3/uL (0.00-0.03); Imm Gran Pct Auto 0.1 % (0.0-0.4); Lymphocytes Absolute Auto 1.5 X10*3/uL (1.2-4.9); Mean Corpuscular HGB Conc 30.4 g/dl (31.0-35.0); Mean Corpuscular Hemoglobin 24.2 pg (27.0-33.0); Mean Corpuscular Volume 79.6 fL (80.0-98.0); Mean Platelet Volume 8.8 fL (9.4-12.3); Monocytes Absolute Auto 0.5 X10*3/uL (0.1-1.2); Monocytes Percent Auto 7.2 % (2-11); Neutrophils Absolute Auto 4.5 x10*3/uL (2.0-8.3); Neutrophils Percent Auto 65.5 % (45-73); Platelet Count 319 X10*3/uL (160-400); Red Blood Count 4.91 X10*6/uL (4.20-5.50); Red Cell Distribution Width 16.1 % (11.0-16.0); White Blood Count 6.9 X10*3/uL (4.8-10.8)
[2023-01-07 11:33] LABS: Appearance Urine Cloudy; Color Urine Yellow; Glucose Urine UA Negative (Negative); Leukocyte Esterase Urine Trace (Negative); Nitrite Urine Negative (Negative); PH 8.5 (5.0-9.0); Specific Gravity - Urine >= 1.030 (1.005-1.025); UMIC TRIGGER UACC YES; Urine Blood Negative (Negative); Urine Ketones Negative (Negative); Urine Protein Trace mg/dL (Neg-Trace)
[2023-01-07 11:36] LABS: Bacteria Urine 2+ (None Seen); Hyaline Casts Urine 0-2 /LPF (0-2); RBC Urine 0-2 /HPF (0-2); WBC Urine 0-5 /HPF (0-5)
[2023-01-07 11:38] LABS: UPreg QC Valid YES; Urine Pregnancy NEGATIVE (NEGATIVE)
[2023-01-07 11:46] LABS: Alanine Aminotransferase 18 U/L (0-31); Alkaline Phosphatase 69 U/L (39-117); Anion Gap 14 (12-20); Aspartate Amino Transferase 15 U/L (5-31); Bilirubin Direct 0.2 mg/dL (0.0-0.5); Bilirubin Total 0.5 mg/dL (0.0-1.0); Blood Urea Nitrogen 13 mg/dL (9-16); Calcium 8.5 mg/dL (8.4-10.2); Carbon Dioxide 20 mmol/L (22-29); Chloride 108 mmol/L (96-108); Creatinine Clr Calc Pharmacy 128.6; Estimated Glomerular Filt Rate > 60; Glucose Random 83 mg/dL (60-115); Magnesium 2.1 mg/dL (1.6-2.6); Potassium 4.1 mmol/L (3.3-5.1); Sodium 138 mmol/L (135-145); Total Protein 7.4 g/dL (6.5-8.0)
== END 2023-01-07 12:08 | disposition home or self-care (01) ==
PROVIDERS: Physician Assistant; Emergency Provider Emergency Medicine
DX: L55.9 Sunburn, unspecified (principal); X32.XXXA Exposure to sunlight, initial encounter; R11.2 Nausea with vomiting, unspecified; Y93.89 Activity, other specified; Y92.832 Beach as the place of occurrence of the external cause; Y99.9 Unspecified external cause status
CPT/HCPCS: 36415; 80048; 80076; 81001; 81025; 83735; 85025; 96361; 96374; 96375; 99283; 99284; J2405

== ENCOUNTER 2023-02-03 17:51 | Emergency (ER) | payer OTHER, SELFPAY ==
--- NOTE | ~2023-02-03 | XR_ITS ---
EXAMINATION: XR SHOULDER, LEFT CLINICAL INFORMATION: Injury. Pain. COMPARISON: None available. TECHNIQUE: Four views of the left shoulder. FINDINGS: The bones and soft tissues are normal. No fracture. Glenohumeral and acromioclavicular alignment is anatomic with normal joint space. No abnormal soft tissue calcifications. XR/XR shoulder LT min 2V IMPRESSION: Normal left shoulder.
--- NOTE | 2023-02-03 17:58 | ED.UPPEXIN ---
HPI - Extremity Injury (Upper) General Chief Complaint: Extremity Problem Stated Complaint: shoulder pain/ Injury Time Seen by Provider: 02/03/23 18:51 Source: patient, RN notes reviewed and old records reviewed Mode of arrival: ambulatory Limitations: no limitations History of Present Illness HPI narrative: 23-year-old female presents for evaluation of left shoulder pain. Patient reports that she was at the grocery store around 6 hours ago. She was standing on the lower shelf trying to reach something that was in the back of the upper shelf She states that when trying to step off the lower shelf shifted causing her to ?hang from the upper self-harm a left arm. ? She reports that she felt a pop in her left shoulder She is having pain and heaviness the left shoulder. She also endorses numbness and tingling Denies any neck pain, she did not fall during the accident Her pain is an 01/10 Related Data Previous Rx's Medication Instructions Recorded cephalexin 500 mg capsule 500 mg PO Q6H 7 days #28 caps 03/31/22 prednisone 20 mg tablet 30 mg PO DAILY 5 days #8 tabs 03/31/22 ondansetron 4 mg disintegrating 4 mg PO Q8H PRN nausea and 01/07/23 tablet vomiting #10 tabs Allergies Allergy/AdvReac Type Severity Reaction Status Date / Time menthol [From [employer]] Allergy Intermediate WELTS Verified 11/14/21 15:16 methyl salicylate Allergy Intermediate WELTS Verified 11/14/21 15:16 [From [employer]] Review of Systems Constitutional: Constitutional: Denies headache(s) ENT: Denies headache(s) and Denies neck pain Musculoskeletal: Musculoskeletal: Reports arthralgias, Denies neck pain, Reports radiating pain into limb, Reports stiffness and Reports tingling Neurologic: Denies headache(s) and Reports tingling PMFSH Social History Social History Patient Tobacco Use Status: Never used Tobacco Advance Directives: No Advance Directives Information Provided: No Physical Exam Vital Signs: Vital Signs: Last Vital Signs Temp 97.3 F 02/03/23 17:59 Pulse 77 02/03/23 17:59 Resp 18 02/03/23 17:59 BP 134/87 02/03/23 17:59 Pulse Ox 98 02/03/23 17:59 O2 Del Method Room Air 02/03/23 17:59 BMI result Body Mass Index 46.4 Const: General: healthy appearing, comfortable, no acute distress, alert and awake Nutritional Appearance: well nourished Orientation/consciousness: patient oriented x3 HEENT: Head: Yes normocephalic and Yes atraumatic Eyes: Eyelids: Yes eyelids normal Conjunctivae: conjunctivae normal Sclerae: sclerae normal Corneas: corneas normal Pupils: Equal, round and reactive pupils present EOM: EOMs intact bilaterally Neck: Neck: Yes full ROM Resp: Effort & Inspection: normal respiratory effort, able to speak in complete sentences and not labored Skin: General skin exam: elasticity normal Neuro: General: patient oriented x3 Cranial nerves: Yes Equal, round and reactive pupils present and Yes Bilaterally intact EOM present Cognition (Neuro): normal cognition Extrem: Other: Tenderness to palpation of the left acromioclavicular joint and left posterior shoulder including rotator cuff. No left anterior shoulder tenderness. No significant edema. Patient is able to move the left upper extremity has pain in the shoulder when doing so. Radial pulses 2+ and equal Course Course Course Narrative: This is a rapid medical exam. Deferred additional HPI, ROS, PE to primary provider. 23 yo female w/ history of UC on enytvio, right hand dominant here with complaints of left shoulder pain after a pulling injury at the grocery store. Will check x-ray VSS Medical Decision Making Medical Decision Making MDM Narrative: 23-year-old female presents for evaluation of left shoulder pain after injuring her shoulder while at the grocery store. X-ray does not show any dislocation or acute fracture. The patient likely has a shoulder sprain. Will discharge her with symptomatic care and a shoulder sling. Differential Diagnosis Differential Diagnoses: The differential diagnosis associated with the presentation includes Shoulder sprain Rotator cuff injury Arthritis Vasculopathy Calcific tendinitis Shoulder dislocation Independent Interpretation I performed an independent interpretation of an: Plain X-Ray (No acute fracture) Radiology Impression Discussion of test interpretation with radiology: I have reviewed the radiologist's reading. Radiologist Impression: Normal left shoulder Discharge Plan Discharge Clinical Impression: Sprain of left shoulder Patient Disposition: Home, Self-Care Instructions: Shoulder Sprain (ED) Additional Instructions: Use ibuprofen/Tylenol for your pain. Your x-ray did not show any fracture or dislocation You may use the sling for comfort when you are out and about but do not wear overnight Follow-up with your primary doctor Prescriptions: No Action prednisone 20 mg tablet 30 mg PO DAILY 5 Days Qty: 8 0RF cephalexin 500 mg capsule 500 mg PO Q6H 7 Days Qty: 28 0RF ondansetron 4 mg tablet,disintegrating 4 mg PO Q8H PRN (Reason: nausea and vomiting) Qty: 10 0RF
[2023-02-03 17:59] VITALS: BP 134/87; PULSE 77; RESP 18; TEMP 36.3; O2SAT 98; BMI 46.4
== END 2023-02-03 19:48 | disposition home or self-care (01) ==
PROVIDERS: Emergency Provider Internal Medicine
DX: S43.402A Unspecified sprain of left shoulder joint, initial encounter (principal); W01.0XXA Fall on same level from slipping, tripping and stumbling without subsequent striking against object, initial encounter; Y93.9 Activity, unspecified; Y92.512 Supermarket, store or market as the place of occurrence of the external cause; Y99.9 Unspecified external cause status; Z79.899 Other long term (current) drug therapy
CPT/HCPCS: 73030; 99282; 99283

== ENCOUNTER 2023-03-12 19:30 | Emergency (ER) | payer OTHER, SELFPAY | END 2023-03-12 21:34 | disposition left against medical advice (07) | LOC: HO.ED 21:31 | PROVIDERS: Emergency Provider Emergency Medicine | DX: R07.89 Other chest pain (principal) | CPT/HCPCS: 93005; 99282; 99283 ==

== ENCOUNTER 2023-03-17 08:08 | Emergency (ER) | payer OTHER, SELFPAY ==
--- NOTE | ~2023-03-17 | US_ITS ---
EXAMINATION: US ABDOMEN LIMITED CLINICAL INFORMATION: Right upper quadrant pain. COMPARISON: Ultrasound abdomen 07/26/2022. CT abdomen 07/25/2022 TECHNIQUE: Real-time imaging of the right upper quadrant abdominal viscera. FINDINGS: PANCREAS: The visualized head and body of the pancreas appears unremarkable. Remainder of the pancreas is obscured by bowel gas. LIVER: Normal. The liver is normal in size. The liver contour is normal. Parenchymal echogenicity is normal. No focal hepatic lesion. There is no intrahepatic biliary duct dilatation seen. GALLBLADDER: Normal. The gallbladder is physiologically distended without evidence of stones, sludge, polyps, wall thickening or pericholecystic fluid. COMMON BILE DUCT: Normal in caliber measuring 0.3 cm in diameter. RIGHT KIDNEY: Normal. No hydronephrosis. No renal calculi or focal parenchymal lesions. The kidney measures cm in maximum dimension. FREE FLUID: None. US/US abdomen limited IMPRESSION: No evidence of cholelithiasis. No findings suggest acute cholecystitis. Normal caliber CBD.
[2023-03-17 08:13] VITALS: BP 119/73; PULSE 82; RESP 16; TEMP 36.4; O2SAT 99; BMI 46.4
--- NOTE | 2023-03-17 09:18 | ED.GENADULT ---
HPI - General Adult General Chief complaint: Abdominal Pain Stated complaint: severe abd pain Time Seen by Provider: 03/17/23 09:10 Source: patient Mode of arrival: ambulatory Limitations: no limitations History of Present Illness HPI narrative: This is a 23 year old female presenting to the emergency department w/ complaints of nausea and RUQ abdominal pain/lower rib pain for the past few days patient reports this is atraumatic in nature. Noted to be worse after eating and deep breathing. She reports the pain intermittent, stabbing in nature. Has never had pain like this before. Patient does not small, not on OCPs, no long travel, no history of DVT or PE. No significant cardiac history. No trauma. Denies fevers, chills, chest pain, shortness of breath, headache, vision changes, dizziness and weakness. Related Data Previous Rx's Medication Instructions Recorded cephalexin 500 mg capsule 500 mg PO Q6H 7 days #28 caps 03/31/22 prednisone 20 mg tablet 30 mg (1.5 x 20 mg) PO DAILY 5 03/31/22 days #8 tabs ondansetron 4 mg disintegrating 4 mg PO Q8H PRN nausea and 01/07/23 tablet vomiting #10 tabs ketorolac 10 mg tablet 10 mg PO TID PRN pain 5 days #15 03/17/23 tabs Allergies Allergy/AdvReac Type Severity Reaction Status Date / Time menthol [From [employer]] Allergy Intermediate WELTS Verified 11/14/21 15:16 methyl salicylate Allergy Intermediate WELTS Verified 11/14/21 15:16 [From [employer]] doxycycline Allergy Hives Verified 03/17/23 08:11 oxycodone Allergy Hives Verified 03/17/23 08:12 Review of Systems Review of Systems: Constitutional : No Weight loss, No Fever, No Chills, No Fatigue, No Malaise ENT/Mouth : No sore throat, No Rhinorrhea Eyes: No Eye Pain, No Swelling, No Redness Cardiovascular : No Chest Pain, No SOB, No Dyspnea on Exertion, No Orthopnea, No Edema, No Palpitations Respiratory : No Cough, No Sputum, No Wheezing Gastrointestinal : No Nausea, No Vomiting, No Diarrhea, No Constipation, + abdominal Pain, No Hematochezia, No Melena Genitourinary : No Dysuria, No Urinary Frequency, No Hematuria, Musculoskeletal : No joint pain, No Myalgias, No Joint Swelling Skin : No Skin Lesions, No rash Neuro : No Weakness, No Numbness, No Dizziness, No Headache Psych : No Anxiety/Panic, No Depression All other systems reviewed and are negative Yes all other systems are reviewed and are negative [facility] Past Medical History Attestation statement: The following information was validated with the patient. Source: old records reviewed and nursing notes reviewed Social History Social History Patient Tobacco Use Status: Never used Tobacco Smoked in Last 30 Days: No Use of substances other than those prescribed or required for medical reasons: No Advance Directives: No Advance Directives Information Provided: No Patient : No Physical Exam ED Vital Signs: Vital Signs - 24 hr 03/17/23 08:13 03/17/23 11:38 Temperature 97.5 F Pulse Rate 82 64 Respiratory Rate 16 14 Blood Pressure 119/73 108/55 L Pulse Oximetry 99 98 Oxygen Delivery Method Room Air Room Air BMI result Body Mass Index 46.4 vss Appearance: Alert.? Oriented X3.? No acute distress.? Head: Normocephalic, atraumatic, no step-offs or deformities Eyes: Pupils equal, round and reactive to light.? Neck: Normal inspection.? Neck supple.? CVS: Normal heart rate and rhythm.? Pulses normal.? Respiratory: No respiratory distress.? Breath sounds normal.? Abdomen: Soft and tenderness to palpation to right upper quadrant as well as right-sided lower ribs..? Skin: Skin warm and dry.? Normal skin color.? Normal skin turgor.? Extremities: No lower extremity edema.? No calf ttp. 5/5 strength to bilateral upper and lower extremities Neuro: Oriented X 3.? No motor deficit.? No sensory deficit. CN 2-12 intact Course Reevaluation(s) Reevaluation #1: CBC unremarkable, no acute findings. Chemistry unremarkable. D-dimer negative, unlikely that this is an atypical presentation of clot. Time: 11:24 Reevaluation #2: Abdominal ultrasound no evidence of cholelithiasis no findings to suggest acute cholecystitis, normal caliber that CBD. On re-evaluation patient states she is feeling better pain is now 5/10. Pending CT of abdomen Time: 12:30 Reevaluation #3: At time of dc patient feeling better almost pain free. CT abdomen still pending, patient reports significant improvement in symptoms, she would like to go home there was a delay in obtaining CT scan as the CT machine was not working. Patient states she is feeling better and she was to follow-up with her PCP, explained to her she would be leaving against medical advice, she will be given against medical advice paperwork that explains the risks of leaving, verbalizes understanding, she does tell me she will return if symptoms worsen or there are changes in her symptoms. Patient to be leaving against medical advice. Time: 14:06 Medications Administered Discontinued Medications Generic Name Dose Route Start Last Admin Trade Name Freq PRN Reason Stop Dose Admin Ketorolac Tromethamine 30 mg 03/17/23 10:28 03/17/23 11:15 Ketorolac Tromethamine 15 Mg/Ml Vial IVPUSH 03/17/23 10:29 30 mg ONCE ONE Administration Medical Decision Making Medical Decision Making [facility] Narrative: 09 23 year old female presents w/ ruq pain, nausea x few days Pe-with tenderness to palpation to right upper quadrant as well as right-sided lower ribs. Likely muscular skeletal pain versus cholecystitis. Unlikely acute abdomen, pancreatitis, appendicitis, diverticulitis, ectopic , mesenteric ischemia. Will rule out metabolic derangements, urinary infection. Plan- labs, imaging Differential Diagnosis Differential Diagnoses: The differential diagnosis associated with the presentation includes Likely muscular skeletal pain versus cholecystitis. Unlikely acute abdomen, pancreatitis, appendicitis, diverticulitis, ectopic , mesenteric ischemia. Will rule out metabolic derangements, urinary infection. Admission/Observation Consideration of admission/observation: Escalation of care including admission/observation considered unlikely Lab Data [facility] Lab Attestation statement: I reviewed the patient's lab results. 03/17/23 09:17 03/17/23 09:17 Labs: Lab Results 03/17/23 03/17/23 Range/Units 09:17 10:42 WBC 6.3 (4.8-10.8) X10*3/uL RBC 5.19 (4.20-5.50) X10*6/uL Hgb 12.8 (12.0-16.0) g/dl Hct 41.4 (37.0-47.0) % MCV 79.8 L (80.0-98.0) fL MCH 24.7 L (27.0-33.0) pg MCHC 30.9 L (31.0-35.0) g/dl RDW 14.7 (11.0-16.0) % Plt Count TNP MPV Not Reportable Immature Gran % (Auto) 0.3 (0.0-0.4) % Neut % (Auto) 71.4 (45-73) % Lymph % (Auto) 18.8 L (20-40) % Coffey % (Auto) 4.4 (2-11) % Eos % (Auto) 4.6 H (0-4) % Baso % (Auto) 0.5 (0-2) % Lymph # (Auto) 1.2 (1.2-4.9) X10*3/uL Coffey # (Auto) 0.3 (0.1-1.2) X10*3/uL Eos # (Auto) 0.3 (0.0-0.4) X10*3/uL Baso # (Auto) 0.0 (0.0-0.2) X10*3/uL Abs Immat Gran (auto) 0.02 (0.00-0.03) X10*3/uL Absolute Neuts (auto) 4.5 (2.0-8.3) x10*3/uL Absolute Nucleated RBC 0.000 (0.0-0.012) X10*3/uL Nucleated RBC % (auto) 0.0 (0.0-0.2) /100WBC Smear Tech's Comments VERIFIED D-Dimer High Sensitivty < 150 NG/ML Sodium 137 (135-145) mmol/L Potassium 4.2 (3.3-5.1) mmol/L Chloride 110 H (96-108) mmol/L Carbon Dioxide 16 L (22-29) mmol/L Anion Gap 15 (12-20) BUN 10 (9-16) mg/dL Creatinine 0.73 (0.5-1.4) mg/dL Estim Creat Clear Calc 125.8 Estimated GFR > 60 Random Glucose 86 (60-115) mg/dL Calcium 9.2 D (8.4-10.2) mg/dL Magnesium 2.2 (1.6-2.6) mg/dL Total Bilirubin 0.4 (0.0-1.0) mg/dL AST 21 (5-31) U/L ALT 17 (0-31) U/L Alkaline Phosphatase 72 (39-117) U/L Total Protein 8.1 H (6.5-8.0) g/dL Albumin 4.1 (3.5-5.0) g/dL Beta HCG, Quant < 2 mIU/mL Independent Interpretation I performed an independent interpretation of an: Ultrasound and CT Scan Radiology Impression Discussion of test interpretation with radiology: I have reviewed the radiologist's reading. Prescription Management I considered prescription management with: Pain Medication Critical Care Time Critical Care Time Critical Care Time: No Discharge Plan Discharge Clinical Impression: Abdominal pain Patient Disposition: Left Against Medical Advice Instructions: Abdominal Pain (ED), Against Medical Advice (ED) Additional Instructions: Take your medications as prescribed. If you were prescribed antibiotics today, it is important that you take your medication to their entirety, do not skip any doses, do not finish them early. Follow-up with your primary care provider this week. Return to the emergency department with new or worsening symptoms. Such as fevers, chills, chest pain, shortness of breath, nausea, vomiting, dizziness, headache, vision changes, lethargy In case of emergency call 911 US/US abdomen limited IMPRESSION: No evidence of cholelithiasis. No findings suggest acute cholecystitis. Normal caliber CBD. Toradol has been sent to your pharmacy, you tolerated this well in the department. Please take this as prescribed do not take this with ibuprofen, or other NSAIDs, do not mix this with alcohol. Side effects of this medication including increased risk for bleeding and possible kidney injury. You are leaving against medical advice risks of this include worsening conditions, decreased quality of life, infection/sepsis, , respiratory distress, undiagnosed illnesses. Please return with any new or worsening symptoms or the change of mind. Prescriptions: New ketorolac 10 mg tablet 10 mg PO TID PRN (Reason: pain) 5 Days Qty: 15 0RF No Action prednisone 20 mg tablet 30 mg PO DAILY 5 Days Qty: 8 0RF cephalexin 500 mg capsule 500 mg PO Q6H 7 Days Qty: 28 0RF ondansetron 4 mg tablet,disintegrating 4 mg PO Q8H PRN (Reason: nausea and vomiting) Qty: 10 0RF Referrals: Physician,Unknown J [Primary Care Provider] - 1 day Stand Alone Forms: Against Medical Advice
--- NOTE | 2023-03-17 09:30 | PC.NURSE ---
a&ox3, vss and up to date. pt comes in today d/t RUQ abdominal/ribcage pain. pt states that pain has been present for about a week. pt states that she has had accompanying nausea but denies v/d/constipation/other sx at this time. pt denies radiation at this time. states that pain increased upon exertion/movement and w/ deep inspiration. fine crackles noted upon auscultation in lower lungs bilaterally. abdomen tender upon palpation. hyperactive bs noted upon auscultation. respirations even and unlabored at this time. call nagy placed within reach.
[2023-03-17 09:32] LABS: Basophils Percent Auto 0.5 % (0-2); Eosinophils Absolute Auto 0.3 X10*3/uL (0.0-0.4); Eosinophils Percent Auto 4.6 % (0-4); Hematocrit 41.4 % (37.0-47.0); Hemoglobin 12.8 g/dl (12.0-16.0); Imm Gran Abs Auto 0.02 X10*3/uL (0.00-0.03); Imm Gran Pct Auto 0.3 % (0.0-0.4); Lymphocytes Absolute Auto 1.2 X10*3/uL (1.2-4.9); Lymphocytes Percent Auto 18.8 % (20-40); MANUAL DIFF FLAG SCAN; Mean Corpuscular HGB Conc 30.9 g/dl (31.0-35.0); Mean Corpuscular Hemoglobin 24.7 pg (27.0-33.0); Mean Corpuscular Volume 79.8 fL (80.0-98.0); Monocytes Absolute Auto 0.3 X10*3/uL (0.1-1.2); Monocytes Percent Auto 4.4 % (2-11); Neutrophils Absolute Auto 4.5 x10*3/uL (2.0-8.3); Neutrophils Percent Auto 71.4 % (45-73); PLT CLUMP 1; Red Blood Count 5.19 X10*6/uL (4.20-5.50); Red Cell Distribution Width 14.7 % (11.0-16.0); SCAN SMEAR FLAG 1
--- NOTE | 2023-03-17 09:40 | PC.NURSE ---
pt currently being transferred to ultrasound at this time.
[2023-03-17 10:12] LABS: White Blood Count 6.3 X10*3/uL (4.8-10.8)
[2023-03-17 10:15] LABS: SLIDE REVIEW VERIFIED
[2023-03-17 11:14] LABS: D Dimer High Sensitivity < 150 NG/ML
[2023-03-17] MEDS: Ketorolac Tromethamine 15 MG/ML VIAL 30 MG IVPUSH (11:15)
--- NOTE | 2023-03-17 11:18 | PC.NURSE ---
20g IV placed in right AC - medications administered per provider order. pt still verbalizing RUQ pain a 7-01/10. will reassess pain level shortly. call nagy placed within reach..
[2023-03-17 11:30] LABS: Alanine Aminotransferase 17 U/L (0-31); Albumin Level 4.1 g/dL (3.5-5.0); Alkaline Phosphatase 72 U/L (39-117); Anion Gap 15 (12-20); Aspartate Amino Transferase 21 U/L (5-31); Bilirubin Total 0.4 mg/dL (0.0-1.0); Blood Urea Nitrogen 10 mg/dL (9-16); Calcium 9.2 mg/dL (8.4-10.2); Carbon Dioxide 16 mmol/L (22-29); Chloride 110 mmol/L (96-108); Creatinine Clr Calc Pharmacy 125.8; Estimated Glomerular Filt Rate > 60; Glucose Random 86 mg/dL (60-115); HCG Quantitative < 2 mIU/mL; Magnesium 2.2 mg/dL (1.6-2.6); Potassium 4.2 mmol/L (3.3-5.1); Sodium 137 mmol/L (135-145); Total Protein 8.1 g/dL (6.5-8.0)
[2023-03-17 11:38] VITALS: BP 108/55; PULSE 64; RESP 14; O2SAT 98
[2023-03-17 14:19] LABS: Lipase 14 U/L (8-78)
== END 2023-03-17 14:19 | disposition left against medical advice (07) ==
PROVIDERS: Physician Assistant; Emergency Provider Emergency Medicine
DX: R10.11 Right upper quadrant pain (principal); R11.2 Nausea with vomiting, unspecified; R07.81 Pleurodynia; Z79.899 Other long term (current) drug therapy
CPT/HCPCS: 36415; 76705; 80053; 83690; 83735; 84702; 85025; 85379; 96374; 99284; J1885

== ENCOUNTER 2023-10-06 01:45 | Emergency (ER) | payer OTHER, SELFPAY ==
[2023-10-06 01:50] VITALS: BP 131/92; PULSE 116; RESP 20; TEMP 37.5; O2SAT 97; BMI 47.4
[2023-10-06 02:13] LABS: IDNOW Serial# 6674DD1D; Strep A Nucleic Acid Positive (Negative)
--- NOTE | 2023-10-06 02:25 | ED_ITS ---
HPI - General Adult General Chief complaint: General Medical Stated complaint: tonsils swollen, trouble breathing Time Seen by Provider: 10/06/23 02:25 Source: patient Mode of arrival: ambulatory Limitations: no limitations History of Present Illness HPI narrative: Patient is a 23 year old assigned female at with no reported medical history presenting to the emergency department today with a sore throat. Patient states that over the last day she has had a worsening sore throat. Patient denies any dizziness, lightheadedness, abdominal pain, nausea, vomiting, fever, chills, blurry vision, double vision, loss of vision, chest pain, difficulty breathing, shortness of breath, back pain, night sweats, pain with urination, increased urinary frequency, increased urinary urgency, blood in her urine or stool, syncope or a near syncopal episode, recent trauma or falls, bowel incontinence, bladder incontinence, bowel retention, bladder retention, or any other complaints at this time. Onset (ago): day(s) Severity: mild Severity scale (1-10): 2 Relieving factors: none Exacerbating factors: none Associated symptoms: denies other symptoms Treatments prior to arrival: none Related Data Previous Rx's ?Medication ?Instructions ?Recorded cephalexin 500 mg capsule 500 mg PO Q6H 7 days #28 caps 03/31/22 prednisone 20 mg tablet 30 mg (1.5 x 20 mg) PO DAILY 5 03/31/22 days #8 tabs ondansetron 4 mg disintegrating 4 mg PO Q8H PRN nausea and 01/07/23 tablet vomiting #10 tabs ketorolac 10 mg tablet 10 mg PO TID PRN pain 5 days #15 03/17/23 tabs penicillin V potassium 500 mg 500 mg PO BID 10 days #20 tabs 10/06/23 tablet Allergies Allergy/AdvReac Type Severity Reaction Status Date / Time menthol [From [employer]] Allergy Intermediate WELTS Verified 10/06/23 01:51 methyl salicylate Allergy Intermediate WELTS Verified 10/06/23 01:51 [From [employer]] doxycycline Allergy Hives Verified 10/06/23 01:51 oxycodone Allergy Hives Verified 10/06/23 01:51 Review of Systems Constitutional: Constitutional: Reports no additional constitutional complaints, Denies chills, Denies fever(s) and Denies night sweats Eyes: Eyes: Reports no additional eye complaints, Denies blurry vision, Denies change in vision, Denies diplopia, Denies eye discharge, Denies loss of vision and Denies eye pain ENT: Denies dizziness and Reports sore throat Cardiovascular: Cardiovascular: Reports no additional cardiovascular complaints, Denies chest pain, Denies lightheadedness, Denies Loss of Consciousness and Denies dyspnea Respiratory: Respiratory: Reports no additional respiratory complaints and Denies dyspnea Gastrointestinal: Gastrointestinal: Reports no additional gastrointestinal complaints, Denies abdominal pain, Denies melena, Denies hematochezia, Denies change in bowel habits and Denies change in stool character Genitourinary: Genitourinary: Denies hematuria, Denies urinary frequency, Denies dysuria, Denies urinary incontinence, Denies urinary hesitancy and Denies urinary urgency Musculoskeletal: Musculoskeletal: Reports no additional musculoskeletal complaints, Denies numbness and Denies tingling Neurologic: Denies dizziness, Denies loss of vision, Denies numbness and Denies tingling Psychiatric: Psychiatric: Reports no additional psychiatric complaints Endocrine: Endocrine: Reports no additional endocrine complaints Hematologic/Lymphatic: Hematologic/Lymphatic: Reports no additional hematologic/lymphatic complaints Allergic/Immunologic: Allergic/Immunologic: Reports no additional allergic/immunologic complaints PMFSH Past Medical History Attestation statement: The following information was validated with the patient. Source: old records reviewed and nursing notes reviewed Social History Social History Patient Tobacco Use Status: Never used Tobacco Advance Directives: No Advance Directives Information Provided: No Physical Exam ED Vital Signs: Vital Signs - 24 hr 10/06/23 01:50 10/06/23 03:15 Temperature 99.5 F 99 F Pulse Rate 116 H 110 H Respiratory Rate 20 20 Blood Pressure 131/92 H 131/92 H Pulse Oximetry 97 96 Oxygen Delivery Method Room Air Room Air BMI result Body Mass Index 47.4 Const General: cooperative, no acute distress, alert and awake Nutritional Appearance: well nourished Orientation/consciousness: patient oriented x3 Limitations: no limitations HENMT Head: Yes normal to inspection and Yes atraumatic Ears: hearing grossly normal bilaterally and external ears normal General nose exam: Normal external nose present, no nasal discharge noted and no epistaxis Face and sinus: Yes normal facial exam, No abrasion and No laceration Mouth: Normal oral and palatal mucosa present, no drooling and no muffled voice Throat: Yes abnormal tonsil (bilateral erythema and exudates) Eyes General: appearance normal, both eyes and all related structures Periorbital: periorbital findings normal Eyelids: Yes eyelids normal Conjunctivae: conjunctivae normal Pupils: Equal, round and reactive pupils present EOM: EOMs intact bilaterally Neck Neck: Yes normal visual inspection, Yes full ROM and Yes no lymphadenopathy Chest Chest palpation & inspection: normal inspection of the chest Resp Effort & Inspection: normal respiratory effort and able to speak in complete sentences GI Inspection: Yes normal to inspection Neuro General: patient oriented x3 and moves all extremities Cranial nerves: Yes Equal, round and reactive pupils present Cognition (Neuro): normal cognition Motor exam (neuro): 5/5 motor strength present throughout Sensory Exam: Normal double simultaneous stimulation for sensation Coordination: [id number] test normal Extrem General: Yes normal to inspection, Yes full ROM and Yes capillary refill normal Psych Appearance: grossly normal Mental Status: mental status grossly normal Affect: normal affect Attitude: cooperative Thought process: Normal thought process present Thought content: Normal thought content present Insight: Good insight present (Psych) Medications Administered Discontinued Medications Generic Name Dose Route Start Last Admin Trade Name Freq PRN Reason Stop Dose Admin Dexamethasone Sodium Phosphate 10 mg 10/06/23 02:27 10/06/23 02:43 Dexamethasone Sod Phosphate 10 Mg/Ml Vial PO 10/06/23 02:28 10 mg ONCE ONE Administration Ketorolac Tromethamine 15 mg 10/06/23 02:27 10/06/23 02:43 Ketorolac Tromethamine 15 Mg/Ml Vial IM 10/06/23 02:28 15 mg ONCE ONE Administration Penicillin V Potassium 500 mg 10/06/23 02:27 10/06/23 02:44 Penicillin V Potassium 250 Mg Tablet PO 10/06/23 02:28 500 mg ONCE ONE Administration Medical Decision Making Medical Decision Making MDM Narrative: Patient is a 23 year old assigned female at with no reported medical history presenting to the emergency department today with a sore throat. Patient's physical exam showed bilateral tonsilar erythema with exudates. Patient's strep test was positive. I explained my physical exam findings as well as all test results to the patient. I answered all questions asked by the patient. I stressed the importance of the patient taking her medication as prescribed. I stressed the importance of the patient following up with her primary care provider. I stressed the importance of the patient returning to the emergency department immediately if her symptoms were to worsen or if she were to develop any dizziness, shortness of breath, difficulty breathing, chest pain, blurry vision, loss of vision, nausea, vomiting, abdominal pain, fever, chills, back pain, or any other complaints. Patient verbalized agreement and understanding with this treatment plan and discharge. Differential Diagnosis Differential Diagnoses: The differential diagnosis associated with the presentation includes Strep pharyngitis Pharyngitis Tonsilitis Sore throat Admission/Observation Consideration of admission/observation: Escalation of care including admission/observation considered Patient would have been admitted to the hospital had her work up had any findings where hospital admission was appropriate and her clinical presentation warranted hospital admission. Lab Data [facility] Lab Attestation statement: I reviewed the patient's lab results. My interpretation of these results are in the [facility] Rationale portion of this note. Labs: Lab Results 10/06/23 Range/Units 02:02 S. pyogenes GrpA MICHAEL Positive A (Negative) Prescription Management I considered prescription management with: Antibiotic (patient prescribed an antibiotic for her strep pharyngitis) Discharge Plan Discharge Clinical Impression: Strep pharyngitis Patient Disposition: Home, Self-Care Instructions: Strep Throat (DC) Additional Instructions: Follow up with your primary care provider. Return to the emergency department immediately if your symptoms worsen or if you develop any dizziness, shortness of breath, difficulty breathing, chest pain, blurry vision, loss of vision, nausea, vomiting, abdominal pain, fever, chills, back pain, or any other complaints. Prescriptions: New penicillin V potassium 500 mg tablet 500 mg PO BID 10 Days Qty: 20 0RF No Action prednisone 20 mg tablet 30 mg PO DAILY 5 Days Qty: 8 0RF cephalexin 500 mg capsule 500 mg PO Q6H 7 Days Qty: 28 0RF ondansetron 4 mg tablet,disintegrating 4 mg PO Q8H PRN (Reason: nausea and vomiting) Qty: 10 0RF ketorolac 10 mg tablet 10 mg PO TID PRN (Reason: pain) 5 Days Qty: 15 0RF Referrals: Nneka Shipley PUBLICATION MANAGER [Primary Care Provider] - Stand Alone Forms: Work/School Release Interventions: ED Discharge Assessment Last Done: 10/06/23 03:15 Discharge Date/Time: 10/06/23 03:16 Print Language: Bengali
[2023-10-06] MEDS: Ketorolac Tromethamine 15 MG/ML VIAL IM (02:43)
[2023-10-06] MEDS: dexAMETHasone sod phosphate 10 MG/ML VIAL PO (02:43)
[2023-10-06] MEDS: Penicillin V Potassium 250 MG TABLET 500 MG PO (02:44)
[2023-10-06 03:15] VITALS: BP 131/92; PULSE 110; RESP 20; TEMP 37.2; O2SAT 96
== END 2023-10-06 03:16 | disposition home or self-care (01) ==
PROVIDERS: Emergency Provider Internal Medicine; PCP Nurse Practitioner Adult Health
DX: J02.0 Streptococcal pharyngitis (principal)
CPT/HCPCS: 87651; 96372; 99283; 99284; J1100; J1885

== ENCOUNTER 2023-12-10 14:39 | Outpatient (AMB) | payer BC, SELFPAY ==
--- NOTE | 2023-12-10 14:45 | AM.OFFWIN_ITS ---
Intake Vital Signs 12/10/23 14:46 Height 4 ft 11 in Weight 276 lb BMI 55.7 BP 118/66 Blood Pressure Location Rt radial Position Sitting Pulse 77 Pulse Source Pulse Oximeter Temp 98.5 F Temp Source Oral Pulse Oximetry (%) 98 Oxygen Delivery Method Room Air Intake Visit Reasons: left side ear pain possible swimmers ear Intake Note: pt is here c/o LT ear pain. ? Swimmers' ear Patient Tobacco Use Status: Never used Tobacco Allergies menthol [From [employer] [facility]] Allergy (Intermediate, Verified 12/10/23 14:45) WELTS methyl salicylate [From [facility]] Allergy (Intermediate, Verified 12/10/23 14:45) WELTS doxycycline Allergy (Verified 12/10/23 14:45) Hives oxycodone Allergy (Verified 12/10/23 14:45) Hives Do you need a note to return to daycare/school/sports/work: No HPI HPI Comments History of Present Illness Details 23-year-old female presents today compla ining of pain in her left ear. She states she very commonly gets swimmer's ear and feels as though this is the problem. She has been swimming in a saltwater pool denies any cough nasal congestion chest pain shortness of breath [facility], [facility] Social History Patient Tobacco Use Status: Never used Tobacco Review of Systems Const All systems reviewed & are unremarkable except as noted in HPI and below Eyes Reports no additional complaints ENT Reports otalgia Card Reports no additional complaints Resp Reports no additional complaints GI Reports no additional complaints Reports no additional complaints Physical Exam Vital Signs: Last Vital Signs Temp 98.5 F 12/10/23 14:46 Pulse 77 12/10/23 14:46 BP 118/66 12/10/23 14:46 Pulse Ox 98 12/10/23 14:46 Oxygen Delivery Method Room Air 12/10/23 14:46 BMI result Body Mass Index 55.7 Const General: healthy appearing and no acute distress HEENT Head: Yes normal to inspection, Yes normocephalic and Yes atraumatic Ears: hearing grossly normal bilaterally, external ears normal and TM abnormal bulging and erythematous General nose exam: Normal external nose present Face and sinus: Yes normal facial exam Throat: Yes posterior oropharynx normal Resp Effort & Inspection: normal respiratory effort Auscultation: clear to auscultation bilaterally Cardio Rate: regular rate Rhythm: regular rhythm Heart sounds: S1 normal heart sound present and S2 normal heart sound present Assessment & Plan Assessment & Plan (1) Otitis media: Code(s): H66.90 - Otitis media, unspecified, unspecified ear Plan: Antibiotic was ordered and the patient will refrain from swimming for the next 10-14 days Plan See plan Medications: New amoxicillin 875 mg PO BID 7 days 14 tabs 0RF Discontinued cephalexin Discontinued Reason: Patient Completed Course 500 mg PO Q6H 7 days 28 caps 0RF prednisone Discontinued Reason: Patient Completed Course 30 mg (1.5 x 20 mg) PO DAILY 5 days 8 tabs 0RF ketorolac Discontinued Reason: Patient Completed Course 10 mg PO TID 5 days PRN 15 tabs 0RF pain ondansetron Discontinued Reason: Patient Completed Course 4 mg PO Q8H PRN 10 tabs 0RF nausea and vomiting penicillin V potassium Discontinued Reason: Patient Completed Course 500 mg PO BID 10 days 20 tabs 0RF Coding Level of Care Code Est Pt Level 3 (85678) Diagnoses Otitis media H66.90
[2023-12-10 14:46] VITALS: BP 118/66; PULSE 77; TEMP 36.9; O2SAT 98; BMI 55.7
== END 2023-12-10 15:27 | disposition home or self-care (01) ==
PROVIDERS: PCP Nurse Practitioner Adult Health; Visit Provider Physician Assistant Medical
DX: H66.90 Otitis media, unspecified, unspecified ear (principal)
CPT/HCPCS: 99213

== ENCOUNTER 2024-02-08 22:01 | Emergency (ER) | payer BC, SELFPAY ==
[2024-02-08 22:12] VITALS: BP 125/77; PULSE 79; RESP 18; TEMP 36.5; O2SAT 98; BMI 55.1
--- NOTE | 2024-02-08 22:22 | ECG_ITS ---
Test Reason : CHEST PAIN Blood Pressure : / mmHG Vent. Rate : 075 BPM Atrial Rate : 075 BPM P-R Int : 136 ms QRS Dur : 086 ms QT Int : 370 ms P-R-T Axes : 008 042 032 degrees QTc Int : 413 ms Normal sinus rhythm with sinus arrhythmia T wave abnormality, consider anterior ischemia Abnormal ECG When compared with ECG of 12-MAR-2023 19:38, T wave inversion more evident in Anterior leads Referred By: Generic ED Physician Electronically Signed By:DAE MOON
[2024-02-08 22:37] LABS: MANUAL DIFF FLAG NO
[2024-02-08 22:38] LABS: Basophils Percent Auto 0.4 % (0-2); Eosinophils Absolute Auto 0.2 X10*3/uL (0.0-0.4); Eosinophils Percent Auto 2.1 % (0-4); Hemoglobin 13.3 g/dl (12.0-16.0); Imm Gran Abs Auto 0.01 X10*3/uL (0.00-0.03); Imm Gran Pct Auto 0.1 % (0.0-0.4); Lymphocytes Absolute Auto 1.6 X10*3/uL (1.2-4.9); Lymphocytes Percent Auto 19.1 % (20-40); Mean Corpuscular HGB Conc 32.4 g/dl (31.0-35.0); Mean Corpuscular Hemoglobin 27.1 pg (27.0-33.0); Mean Corpuscular Volume 83.7 fL (80.0-98.0); Mean Platelet Volume 8.5 fL (9.4-12.3); Monocytes Absolute Auto 0.4 X10*3/uL (0.1-1.2); Neutrophils Percent Auto 73.3 % (45-73); Platelet Count 280 X10*3/uL (160-400); White Blood Count 8.2 X10*3/uL (4.8-10.8)
[2024-02-08 22:53] LABS: Anion Gap 12 (12-20); Blood Urea Nitrogen 12 mg/dL (9-16); Calcium 9.5 mg/dL (8.4-10.2); Carbon Dioxide 24 mmol/L (22-29); Chloride 109 mmol/L (96-108); Creatinine Clr Calc Pharmacy 123.8; Estimated Glomerular Filt Rate > 60; Glucose Random 110 mg/dL (60-115); Potassium 3.9 mmol/L (3.3-5.1); Sodium 141 mmol/L (135-145)
[2024-02-08 23:02] LABS: Troponin-I High Sensitivity < 2.7 ng/L (<3.5-17.0)
[2024-02-09 00:34] LABS: Alanine Aminotransferase 15 U/L (0-31); Albumin Level 4.3 g/dL (3.5-5.0); Alkaline Phosphatase 62 U/L (39-117); Aspartate Amino Transferase 11 U/L (5-31); Bilirubin Direct < 0.2 mg/dL (0.0-0.5); Bilirubin Total 0.2 mg/dL (0.0-1.0); Lipase 14 U/L (8-78); Total Protein 7.8 g/dL (6.5-8.0)
--- NOTE | 2024-02-09 00:40 | ED.GENADULT ---
HPI - General Adult General Chief complaint: General Medical Stated complaint: vomiting blood Time Seen by Provider: 02/09/24 00:00 Source: patient, RN notes reviewed and old records reviewed Mode of arrival: ambulatory Limitations: no limitations History of Present Illness ED Provider: Wojciech PALOMO narrative: 24-year-old female with past medical history significant for Crohn's disease followed by GI in [facility] presents for evaluation of abdominal pain and vomiting. Patient reports that after eating pasta with butter around 8:00 p.m. per dinner she began to experience severe heartburn She states that she does have a history of heartburn but does not take any medication for at this time. She states between 9:00 p.m. and 9:30 p.m. today she vomited 4 times She reports that there was bright red blood in the vomitus She denies any history of vomiting blood. She reports her last endoscopy was about a year and a half ago At the time my evaluation, the patient reports that her pain has improved greatly She is not currently nauseous No other complaints or concerns at this time Related Data Home Medications ?Medication ?Instructions ?Recorded ?Confirmed albuterol sulfate 90 mcg/actuation 2 puff inhalation Q4H PRN wheezing 12/10/23 aerosol inhaler bupropion HCl 150 mg 24 hr tablet, 150 mg PO DAILY 12/10/23 extended release cyclobenzaprine 5 mg tablet 5 mg PO BEDTIME PRN muscle spasm 12/10/23 propranolol 20 mg tablet 20 mg PO BID 12/10/23 sertraline 100 mg tablet 150 mg PO DAILY 12/10/23 vedolizumab 300 mg intravenous 300 mg IV Q4W 12/10/23 solution (Entyvio) Previous Rx's ?Medication ?Instructions ?Recorded amoxicillin 875 mg tablet 875 mg PO BID 7 days #14 tabs 12/10/23 omeprazole 20 mg capsule,delayed 20 mg PO DAILY #14 caps 02/09/24 release Allergies Allergy/AdvReac Type Severity Reaction Status Date / Time menthol [From [facility]] Allergy Intermediate WELTS Verified 02/08/24 22:12 methyl salicylate Allergy Intermediate WELTS Verified 02/08/24 22:12 [From [facility]] doxycycline Allergy Hives Verified 02/08/24 22:12 oxycodone Allergy Hives Verified 02/08/24 22:12 Review of Systems Constitutional: Constitutional: Denies body ache(s), Denies chills and Denies fever(s) Cardiovascular: Cardiovascular: Denies chest pain Respiratory: Respiratory: Denies cough Gastrointestinal: Gastrointestinal: Reports abdominal pain, Reports nausea, Reports vomiting and Reports hematemesis Musculoskeletal: Musculoskeletal: Denies back pain Integumentary/Breasts: Skin/Breast: Denies rash PMFSH Social History Social History Patient Tobacco Use Status: Never used Tobacco Smoked in Last 30 Days: No Use of substances other than those prescribed or required for medical reasons: No Advance Directives: No Advance Directives Information Provided: No Do you have a plan to hurt others: No Plan Physical Exam ED Vital Signs: Vital Signs - 24 hr 02/08/24 22:12 02/09/24 01:22 Temperature 97.7 F 98.2 F Pulse Rate 79 76 Respiratory Rate 18 16 Blood Pressure 125/77 128/68 Pulse Oximetry 98 98 Oxygen Delivery Method Room Air Room Air BMI result Body Mass Index 55.1 Const General: healthy appearing, comfortable, no acute distress, alert and awake Nutritional Appearance: well nourished Orientation/consciousness: patient oriented x3 HENMT Head: Yes normocephalic and Yes atraumatic Eyes Eyelids: Yes eyelids normal Conjunctivae: conjunctivae normal Sclerae: sclerae normal Corneas: corneas normal Pupils: Equal, round and reactive pupils present EOM: EOMs intact bilaterally Neck Neck: Yes full ROM Resp Effort & Inspection: normal respiratory effort, able to speak in complete sentences, no audible wheezes and not labored Auscultation: clear to auscultation bilaterally Cardio Rate: regular rate Rhythm: regular rhythm GI Inspection: No distended Palpation (GI): Soft to palpation, not firm, nontender, no guarding and not rigid Skin General skin exam: elasticity normal Neuro General: patient oriented x3 Cranial nerves: Yes Equal, round and reactive pupils present and Yes Bilaterally intact EOM present Cognition (Neuro): normal cognition Extrem Other: Moving all extremities well without any obvious deformities Medical Decision Making Medical Decision Making MDM Narrative: 24-year-old female with past medical history as documented above presents for evaluation of abdominal pain and concerns for vomiting blood. She has not vomited while in the ER. Her H&H are within normal limits, she is not tachycardic or hypotensive. She is currently pain-free. She does have appropriate GI follow-up I also referred her to local GI as the patient states that she moved to this area. She has no active abdominal pain. Most likely diagnosis is peptic ulcer disease versus Venus-Pitt tear. She was prescribed omeprazole daily for the next 2 weeks and will follow up with GI. Return precautions were given Differential Diagnosis Differential Diagnoses: The differential diagnosis associated with the presentation includes Venus-Pitt tear Stomach ulcer GI bleed Iron-deficiency anemia Admission/Observation Consideration of admission/observation: Escalation of care including admission/observation considered Lab Data MDM Lab Attestation statement: I reviewed the patient's lab results. No leukocytosis or anemia. Normal platelet count. No significant electrolyte abnormalities. 02/08/24 22:32 02/08/24 22:32 Labs: Lab Results 02/08/24 Range/Units 22:32 WBC 8.2 (4.8-10.8) X10*3/uL RBC 4.90 (4.20-5.50) X10*6/uL Hgb 13.3 (12.0-16.0) g/dl Hct 41.0 (37.0-47.0) % MCV 83.7 (80.0-98.0) fL MCH 27.1 (27.0-33.0) pg MCHC 32.4 (31.0-35.0) g/dl RDW 14.0 (11.0-16.0) % Plt Count 280 (160-400) X10*3/uL MPV 8.5 L (9.4-12.3) fL Immature Gran % (Auto) 0.1 (0.0-0.4) % Neut % (Auto) 73.3 H (45-73) % Lymph % (Auto) 19.1 L (20-40) % [place] % (Auto) 5.0 (2-11) % Eos % (Auto) 2.1 (0-4) % Baso % (Auto) 0.4 (0-2) % Lymph # (Auto) 1.6 (1.2-4.9) X10*3/uL [place] # (Auto) 0.4 (0.1-1.2) X10*3/uL Eos # (Auto) 0.2 (0.0-0.4) X10*3/uL Baso # (Auto) 0.0 (0.0-0.2) X10*3/uL Abs Immat Gran (auto) 0.01 (0.00-0.03) X10*3/uL Absolute Neuts (auto) 6.0 (2.0-8.3) x10*3/uL Absolute Nucleated RBC 0.000 (0.0-0.012) X10*3/uL Nucleated RBC % (auto) 0.0 (0.0-0.2) /100WBC Sodium 141 (135-145) mmol/L Potassium 3.9 (3.3-5.1) mmol/L Chloride 109 H (96-108) mmol/L Carbon Dioxide 24 (22-29) mmol/L Anion Gap 12 (12-20) BUN 12 (9-16) mg/dL Creatinine 0.82 (0.5-1.4) mg/dL Estim Creat Clear Calc 123.8 Estimated GFR > 60 Random Glucose 110 (60-115) mg/dL Calcium 9.5 (8.4-10.2) mg/dL Total Bilirubin 0.2 (0.0-1.0) mg/dL Direct Bilirubin < 0.2 (0.0-0.5) mg/dL AST 11 (5-31) U/L ALT 15 (0-31) U/L Alkaline Phosphatase 62 (39-117) U/L Troponin I High Sens < 2.7 (<3.5-17.0) ng/L Total Protein 7.8 (6.5-8.0) g/dL Albumin 4.3 (3.5-5.0) g/dL Lipase 14 (8-78) U/L Discharge Plan Discharge Clinical Impression: Abdominal pain Patient Disposition: Home, Self-Care Instructions: Abdominal Pain (ED) Additional Instructions: Your workup in the ER today was reassuring. I do recommend that you follow-up with your GI doctor for an upper endoscopy In the meantime I recommend taking omeprazole daily for the next 2 weeks Return for new or worsening symptoms Follow-up with your primary doctor, Prescriptions: New omeprazole 20 mg capsule,delayed release(DR/EC) 20 mg PO DAILY Qty: 14 0RF No Action cyclobenzaprine 5 mg tablet 5 mg PO BEDTIME PRN (Reason: muscle spasm) albuterol sulfate 90 mcg/actuation HFA aerosol inhaler 2 puff inhalation Q4H PRN (Reason: wheezing) bupropion HCl 150 mg tablet extended release 24 hr 150 mg PO DAILY sertraline 100 mg tablet 150 mg PO DAILY Entyvio 300 mg recon soln 300 mg IV Q4W Rx Instructions: administer week 6 of treatment propranolol 20 mg tablet 20 mg PO BID amoxicillin 875 mg tablet 875 mg PO BID 7 Days Qty: 14 0RF Referrals: Juan Patten MD [Physician] - (history of chron's. Reports bright red vomitus) Interventions: ED Discharge Assessment Last Done: 02/09/24 01:22 Discharge Date/Time: 02/09/24 01:05 Print Language: Italian
[2024-02-09 01:22] VITALS: BP 128/68; PULSE 76; RESP 16; TEMP 36.8; O2SAT 98
== END 2024-02-09 01:05 | disposition home or self-care (01) ==
PROVIDERS: Physician Assistant; Emergency Provider Emergency Medicine; PCP Nurse Practitioner Adult Health
DX: R10.9 Unspecified abdominal pain (principal)
CPT/HCPCS: 36415; 80048; 80076; 83690; 84484; 85025; 93005; 99283; 99284

== ENCOUNTER 2024-02-22 05:43 | Emergency (ER) | payer BC, SELFPAY ==
--- NOTE | ~2024-02-22 | XR_ITS ---
EXAMINATION: XR CHEST CLINICAL INFORMATION: Productive cough. COMPARISON: None available. TECHNIQUE: Frontal view of the chest was obtained. FINDINGS: The lungs are clear. The cardiomediastinal silhouette is normal in size. There is no pleural effusion or pneumothorax. No acute osseous abnormality. XR/XR chest 1V IMPRESSION: No acute cardiopulmonary findings. Electronically signed by: Leonid Bansal MD 02/22/2024 08:06 AM EDT
[2024-02-22 05:49] VITALS: BP 110/68; PULSE 109; RESP 18; TEMP 36.7; O2SAT 96; BMI 55.7
--- NOTE | 2024-02-22 05:57 | PC.NURSE ---
Pt c/o of general not feeling welll, c/o of right ear pain, productive cough, green sputum, and general aches all over body
--- NOTE | 2024-02-22 06:43 | ED.GENADULT ---
HPI - General Adult General Chief complaint: General Medical Stated complaint: does not feel good Time Seen by Provider: 02/22/24 06:42 Source: patient Mode of arrival: ambulatory Limitations: no limitations History of Present Illness ED Provider: Juan Carlos PALOMO narrative: 24yo F PMHx Crohn's dz on vedolizumab infusions presenting with a one-day history of cough, general malaise, fatigue, headache, and R ear pain. Began coughing up green sputum earlier this morning. Denies fevers, chills, N/V/D, CP, SOB, sore throat, hearing changes, otorrhea, trauma to ear, abd pain . Denies sick contacts. Was recently at a concert and believes this is why her voice has been hoarse for the past 2 days. Related Data Home Medications ?Medication ?Instructions ?Recorded ?Confirmed albuterol sulfate 90 mcg/actuation 2 puff inhalation Q4H PRN wheezing 12/10/23 aerosol inhaler bupropion HCl 150 mg 24 hr tablet, 150 mg PO DAILY 12/10/23 extended release cyclobenzaprine 5 mg tablet 5 mg PO BEDTIME PRN muscle spasm 12/10/23 propranolol 20 mg tablet 20 mg PO BID 12/10/23 sertraline 100 mg tablet 150 mg PO DAILY 12/10/23 vedolizumab 300 mg intravenous 300 mg IV Q4W 12/10/23 solution (Entyvio) Previous Rx's ?Medication ?Instructions ?Recorded amoxicillin 875 mg tablet 875 mg PO BID 7 days #14 tabs 12/10/23 omeprazole 20 mg capsule,delayed 20 mg PO DAILY #14 caps 02/09/24 release ciprofloxacin 0.3 %-dexamethasone 4 drp otic (ears) BID 7 days #7.5 02/22/24 0.1 % ear drops,suspension mL (Ciprodex) Allergies Allergy/AdvReac Type Severity Reaction Status Date / Time menthol [From [employer] Allergy Intermediate WELTS Verified 02/22/24 05:52 methyl salicylate Allergy Intermediate WELTS Verified 02/22/24 05:52 [From [employer] doxycycline Allergy Hives Verified 02/22/24 05:52 oxycodone Allergy Hives Verified 02/22/24 05:52 Review of Systems Review of Systems: Yes all other systems are reviewed and are negative PMFSH Past Medical History Attestation statement: The following information was validated with the patient. Source: old records reviewed and nursing notes reviewed Social History Social History Patient Tobacco Use Status: Never used Tobacco Smoked in Last 30 Days: No Use of substances other than those prescribed or required for medical reasons: No Advance Directives: No Advance Directives Information Provided: Yes Do you have a plan to hurt others: No Plan Patient : No Physical Exam ED Vital Signs: Vital Signs - 24 hr 02/22/24 05:49 02/22/24 07:16 Temperature 98.1 F 98.8 F Pulse Rate 109 H 101 H Respiratory Rate 18 18 Blood Pressure 110/68 104/62 Pulse Oximetry 96 98 Oxygen Delivery Method Room Air Room Air BMI result Body Mass Index 55.7 VSS Appearance: Alert. Oriented X3. No acute distress. ? No accessory muscle use Head: Normal external exam. Normocephalic. Atraumatic. ? Eyes: PERRLA. EOMI. Conjunctiva and sclera normal. Eyelids normal. ? ENT: Pharynx normal. Uvula midline. Moist mucous membranes. ? No trismus noted.? No drooling noted.? No muffled voice noted. Right ear with mild TTP pinna pull tragus push. R EAC mildly erythematous and edematous. Effusion noted behind R TM. TM normal in color. No mastoid swelling or tenderness. Neck: ?Soft full range of motion, no JVD CVS: ?Heart regular rate and rhythm no murmurs and rubs Respiratory: ?Rhonchi on auscultation, cleared with cough Abdomen: ?Soft nontender no rebound or guarding positive bowel sounds Skin: Skin warm and dry.? Normal skin color.? Normal skin turgor. No rashes/lesions/lacerations noted. Extremities: No lower extremity edema. ? Extremities exhibit normal range of motion.? Extremities nontender. Neuro: Oriented X 3.? No motor deficit.? No sensory deficit.? Reflexes normal Course Reevaluation(s) Reevaluation #1: flu/covid/rsv negative. Normal cxr plan dc home w/ ciprodex for otitis externa. Patient aware of plan. Advised to return w/ new or worsneing sx. Time: 08:11 Medical Decision Making Medical Decision Making [facility] Narrative: 24yo F PMHx Crohn's dz on vedolizumab infusions presenting with a one-day history of cough, general malaise, fatigue, headache, and ear pain. PE: Right ear with mild TTP pinna pull tragus push. R EAC mildly erythematous and edematous. Effusion noted behind R TM. TM normal in color. No mastoid swelling or tenderness. Rhonchi cleared with cough Hx and PE concerning for viral URI with otitis externa. Less likely, bacterial sinus infection, pneumonia, PE, ACS, ARDS, mastoiditis, perfed TM, fungal infection to ear. Plan: RSV/flu/COVID swab Differential Diagnosis Differential Diagnoses: The differential diagnosis associated with the presentation includes (Hx and PE concerning for viral URI with otitis externa. Less likely, bacterial sinus infection, pneumonia, PE, ACS, ARDS, mastoiditis, perfed TM, fungal infection to ear. ) Admission/Observation Consideration of admission/observation: Escalation of care including admission/observation considered Lab Data [facility] Lab Attestation statement: I reviewed the patient's lab results. Labs: Lab Results 02/22/24 Range/Units 07:15 Influenza Type A (PCR) NEGATIVE (Negative) Influenza Type B (PCR) NEGATIVE (Negative) RSV RNA Qual (PCR) NEGATIVE (Negative) SARS-CoV-2 RNA (RT-PCR) NEGATIVE (Negative) Prescription Management I considered prescription management with: Antibiotic Chronic Conditions Patient?s care impacted by: Other (obesity, IBD ) Critical Care Time Critical Care Time Critical Care Time: No Discharge Plan Discharge Clinical Impression: Viral illness, Otitis externa Patient Disposition: Still a Patient Instructions: Otitis Externa (ED), Viral Syndrome (ED) Additional Instructions: Take your medications as prescribed. If you were prescribed antibiotics today, it is important that you take your medication to their entirety, do not skip any doses, do not finish them early. Follow-up with your primary care provider this week. Return to the emergency department with new or worsening symptoms. In case of emergency call 911 FINDINGS: The lungs are clear. The cardiomediastinal silhouette is normal in size. There is no pleural effusion or pneumothorax. No acute osseous abnormality. XR/XR chest 1V IMPRESSION: No acute cardiopulmonary findings. Prescriptions: New ciprofloxacin-dexamethasone [Ciprodex] 0.3-0.1 % drops,suspension 4 drp otic (ears) BID 7 Days Qty: 7.5 0RF No Action omeprazole 20 mg capsule,delayed release(DR/EC) 20 mg PO DAILY Qty: 14 0RF cyclobenzaprine 5 mg tablet 5 mg PO BEDTIME PRN (Reason: muscle spasm) albuterol sulfate 90 mcg/actuation HFA aerosol inhaler 2 puff inhalation Q4H PRN (Reason: wheezing) bupropion HCl 150 mg tablet extended release 24 hr 150 mg PO DAILY sertraline 100 mg tablet 150 mg PO DAILY Entyvio 300 mg recon soln 300 mg IV Q4W Rx Instructions: administer week 6 of treatment propranolol 20 mg tablet 20 mg PO BID amoxicillin 875 mg tablet 875 mg PO BID 7 Days Qty: 14 0RF Referrals: Nneka Shipley NP [Primary Care Provider] - 2 days Print Language: Irish
--- NOTE | 2024-02-22 07:00 | PC.NURSE ---
report given to Edie FLOOD
[2024-02-22 07:16] VITALS: BP 104/62; PULSE 101; RESP 18; TEMP 37.1; O2SAT 98
--- NOTE | 2024-02-22 07:57 | PC.NURSE ---
Care of Pt assumed at change of shift. Pt resting quietly on stretcher with her phone, lights dimmed. VSS, NAD noted. Breaths are slow, even, and unlabored; cough noted. Nasal swab and xray results pending. Pt offers no complaints at this time.
[2024-02-22 07:59] LABS: Influenza A PCR NEGATIVE (Negative); Influenza B PCR NEGATIVE (Negative); Resp Syncy Virus RNA Qual PCR NEGATIVE (Negative); SARS COV2 PCR INHOUSE NEGATIVE (Negative)
[2024-02-22 08:13] VITALS: BP 109/62; PULSE 97; RESP 16; TEMP 36.9; O2SAT 99
[2024-02-22 08:31] VITALS: BP 109/62; PULSE 97; RESP 16; TEMP 36.9; O2SAT 99
== END 2024-02-22 08:35 | disposition admitted as inpatient to this hospital (09) ==
PROVIDERS: Physician Assistant; Emergency Provider Emergency Medicine; PCP Nurse Practitioner Adult Health
DX: B34.9 Viral infection, unspecified (principal); H60.91 Unspecified otitis externa, right ear; Z03.818 Encounter for observation for suspected exposure to other biological agents ruled out; R05.9 Cough, unspecified
CPT/HCPCS: 0241U; 71045; 99283; 99284

== ENCOUNTER 2025-04-09 03:39 | Emergency (ER) | payer BC, SELFPAY ==
[2025-04-09 03:43] VITALS: BP 143/78; PULSE 111; RESP 20; TEMP 36.8; O2SAT 95; BMI 50.5
--- OUTSIDE RECORDS SUMMARY | 2025-04-09 03:56 | XMS_ITS | Encounter Summary ---
Author Organization [facility] Address [address] [place] [address] Care Team Providers Care Software Applications Engineer Name Role Phone Amisha Holt DO Primary Care Provider [phone] Encounter Details Date Type Department Care Team (Late st Contact Info) Description 09/26/2011 Orders Only [facility] [address] [place] [address] Amisha Holt DO [address] [place] [id number] Social History Tobacco Use Types Packs/Day Years Used Date Smoking Tobacco: Never Assessed Comments No Sex and Gender Information Value Date Recorded Sex Assigned at Not on file Legal Sex Female 7:38 AM EDT Gender Identity Not on file Sexual Orientation Not on file documented as of this encounter Plan of Treatment Not on file documented as of this encounter Procedures * Due to [place] [employer] Document Preparation law, this organization might not be sharing negative HIV tests. Procedure Name Priority Date/Time Associated Diagnosis Comments STREPTOCOCCUS, GROUP A CULTURE Routine 09/26/2011 3:12 PM EDT Sorethroat documented in this encounter Results * Due to [place] [employer] Document Preparation law, this organization might not be sharing negative HIV tests. * STREPTOCOCCUS, GROUP A CULTURE (09/26/2011 3:12 PM EDT) Culture, Streptococci Group A, Throat SEE NOTE [facility] Comment: {STREPTOCOCCUS, GROUP A CULTURE {[id number]) STREPTOCOCCUS, GROUP A CULTURE MICRO NUMBER: [id number] TEST STATUS: FINAL SPECIMEN SOURCE: THROAT SPECIMEN QUALITY: ADEQUATE RESULT: No beta hemolytic Streptococci isolated 09/26/2011 3:12 PM EDT 09/26/2011 8:27 PM EDT Narrative Resulting Agency Comment [id number] Amisha Holt DO LABORATORY Final Result Performing Organization Address City/State/[facility] Co de Phone Number [facility] [address] [place] [address] documented in this encounter Visit Diagnoses Diagnosis Sorethroat Acute pharyngitis documented in this encounter Care Teams Software Applications Engineer Relationship Specialty Start Date End Date Amisha Holt DO [address] [place] [address] PCP - General 07/04/09 07/26/20 documented as of this encounter
--- OUTSIDE RECORDS SUMMARY | 2025-04-09 03:56 | XMS_ITS | Encounter Summary ---
Author Organization [facility] Address [address] [place] [address] Care Team Providers Care Body Worker Name Role Phone Amisha Holt DO Primary Care Provider [phone] Encounter Details Date Type Department Care Team (Late st Contact Info) Description 03/18/2012 [facility] Only [facility] [address] [place] [address] Amisha Holt DO [address] [place] [id number] Social History Tobacco Use Types Packs/Day Years [...] of this encounter Procedures * Due to [place] [employer] law, this organization might not be sharing negative HIV tests. Procedure Name Priority Date/Time Associated Diagnosis Comments STREPTOCOCCUS, GROUP A CULTURE Routine 03/18/2012 12:02 PM EDT Acute pharyngitis documented in this encounter Results * Due to [place] [employer] law, this organization might not be sharing negative HIV tests. * STREPTOCOCCUS, GROUP A CULTURE (03/18/2012 12:02 PM EDT) Culture, Streptococci Group A, Throat SEE NOTE [facility] Comment: {STREPTOCOCCUS, GROUP A CULTURE {[id number]) STREPTOCOCCUS, GROUP A CULTURE MICRO NUMBER: [id number] TEST STATUS: FINAL SPECIMEN SOURCE: NOT GIVEN SPECIMEN QUALITY: ADEQUATE RESULT: No beta hemolytic Streptococci isolated 03/18/2012 12:0 2 PM EDT 03/18/2012 7:05 PM EDT Narrative Resulting Agency Comment [id number] Amisha oHlt DO LABORATORY Final Result Performing Organization Address City/State/[facility] Co de Phone Number [facility] [address] [place] [address] documented in this encounter Visit Diagnoses Diagnosis Acute pharyngitis documented in this encounter Care Teams Body Worker Relationship Specialty Start Date End Date Amisha Holt DO [address] [place] [address] PCP - General 07/04/09 07/26/20 documented as of this encounter
--- OUTSIDE RECORDS SUMMARY | 2025-04-09 03:56 | XMS_ITS | Encounter Summary ---
Author Organization [facility] Address [address] [place] [address] Care Team Providers Care Skiver Sock Linings Name Role Phone Halima Fernandez Amisha Primary Care Provider [phone] Encounter Details Date Type Department Care Team (Late st Contact Info) Description 06/19/2016 Orders Only [facility] [address] [place] [address] Jameel Wallis MD Social History Tobacco Use Types Packs/Day Years Used Date Smoking Tobacco: Never Alcohol Use Standard Drinks/Week Comments Not Asked 0 (1 standard drink = 0.6 oz pur e alcohol) Comments No Sex and Gender Information Value Date Recorded Sex Assigned at Not on file Legal Sex Female 7:38 AM EDT Gender Identity Not on file Sexual Orientation Not on file documented as of this encounter Plan of Treatment Not on file documented as of this encounter Procedures * Due to [place] [employer] law, this organization might not be sharing negative HIV tests. Procedure Name Priority Date/Time Associated Diagnosis Comments CBC INCLUDES DIFFERENTIAL AND PLATELET COUNT Routine 06/19/2016 3:41 PM EST Ulcerative proctitis with rectal bleeding documented in this encounter Results * Due to [place] [employer] law, this organization might not be sharing negative HIV tests. * CBC INCLUDES DIFFERENTIAL AND PLATELET COUNT (06/19/2016 3:41 PM EST) WBC 5.9 4.5 - 13.0 Thousand/u L [facility] Comment:{WHITE BLOOD CELL CO UNT {[id number]) RBC 4.33 3.80 - 5.10 Million/uL [facility] Comment:{RED BLOOD CELL COUN T {[id number]) Hemoglobin 12.6 11.5 - 15.3 g/dL [facility] Comment:{HEMOGLOBIN {[id number]) Hematocrit 37.7 34.0 - 46.0 % [facility] Comment:{HEMATOCRIT {[id number]) MCV 86.9 78.0 - 98.0 fL [facility] Comment:{MCV {[id number]) MCH 29.1 25.0 - 35.0 pg [facility] Comment:{MCH {[id number]) MCHC 33.6 31.0 - 36.0 g/dL [facility] Comment:{MCHC {[id number]) RDW 12.9 11.0 - 15.0 % [facility] Comment:{RDW {[id number]) PLT 293 140 - 400 Thousand/u L [facility] Comment:{PLATELET COUNT {[id number]) MPV 7.8 7.5 - 11.5 fL [facility] Comment:{MPV {[id number]) Neutrophils # 3670 1800 - 8000 cells/uL [facility] Comment:{ABSOLUTE NEUTROPHIL S {[id number]) Lymphocytes # 1617 1200 - 5200 cells/uL [facility] Comment:{ABSOLUTE LYMPHOCYTE S {[id number]) Monocytes # 472 200 - 900 cells/uL [facility] Comment:{ABSOLUTE MONOCYTES {[id number]) Eosinophils # 112 15 - 500 cells/uL [facility] Comment:{ABSOLUTE EOSINOPHIL S {[id number]) Basophils # 30 0 - 200 cells/uL [facility] Comment:{ABSOLUTE BASOPHILS {[id number]) Neutrophils % 62.2 % [facility] Comment:{NEUTROPHILS {[id number]) Lymphocytes % 27.4 % [facility] Comment:{LYMPHOCYTES {[id number]) Monocytes % 8.0 % [facility] Comment:{MONOCYTES {[id number]) Eosinophils % 1.9 % [facility] Comment:{EOSINOPHILS {[id number]) Basophils % 0.5 % [facility] Comment:{BASOPHILS {[id number]) 06/19/2016 3:41 PM EST 06/19/2016 8:49 PM EST Narrative Resulting Agency Comment [id number] Jameel Wallis MD LAB SAME DAY RESULT Final Resul t Performing Organization Address City/State/[facility] Co de Phone Number [facility] [address] [place] [address] documented in this encounter Visit Diagnoses Diagnosis Ulcerative proctitis with rectal bleeding (HCC) documented in this encounter Care Teams Skiver Sock Linings Relationship Specialty Start Date End Date Amisha Holt DO [address] [place] [address] PCP - General 07/04/09 07/26/20 documented as of this encounter
--- OUTSIDE RECORDS SUMMARY | 2025-04-09 03:56 | XMS_ITS | Data Portability ---
Author Organization [facility], [address] Address [address] [place] [address] Assessment No assessment recorded. Plan of Treatment Reminders Order Date Submit Date Provider Last Modified By Organization Details Last Modified Time Details Appointments None recorded. Lab rapid strep group A, throat 2022 023 [email or web address] [facility], [address] [place] [address], [place], [address], 3 11:50:49 streptococc us group A, culture, throat 2022 023 RANDOLPH [facility], [address] [place] [address], [place], [address], 3 06:07:19 Referral None recorded. Procedures None recorded. Surgeries None recorded. Imaging None recorded. Medication Orders fexofenadin e-pseudoeph edrine ER 180 mg-240 mg tablet,ext. release [address] [facility][id number], [address] [place], [address], 3 11:50:51 prednisone 50 mg tablet [address] [facility][id number], [address] [place], [address], 3 11:50:51 Patient TargetsNo targets recorded. Patient Instructions Encounter Date Encounter Id Patient Instructions Last Modified By Organization Details Last Modified Time 06/17/2022 [id number] sore throat: car e instructions [email or web address] Not available 06/17/2022 11:50:49 - Use the medications prescribed. - Decongestants if tolerated. - Recommend recheck if fever develops or no improvement in 5-7 days. - Use saline nasal spray or neti-pot flushes once to twice a day to loosen mucus in sinuses. - I recommend having your ear rechecked in in 2 weeks with your primary provider to verify infection has resolved. -.Use a cool mist humidifier in the room that you sleep to add moisture to the air, which should soothe the airways and help loosen any mucus that may be present. -Call 911 or proceed to nearest Emergency Department if you develop shortness of breath, chest pain, severe headache or other symptoms that concern you. Not available 06/17/2022 11:50:57 Use over the counter medications for your sore throat. Basic lozenges (cough drops) or lozenges with an anesthetic (numbing agent) can be used as needed for quick results; look for the active ingredient, benzocaine, for numbing lozenges (like Cepacol Extra or Chloraseptic Max). Gargling with warm salt water can also relieve pain. Dissolve 1/4 to 1/2 teaspoon in 8-ounces of warm water; gargle and spit salt solution every hour, as needed. Sore throat pain can also be reduced by taking regular doses of acetaminophen (tylenol) or ibuprofen (Advil); if you are given a prescription of PREDNISONE, you may continue to take acetamminophen, but do not take ibuprofen or naprosyn. While this isn't quick, it can significantly reduce pain within an hour after taking. Please switch toothbrush after being on antibiotic for 24 hrs. You should follow-up with your PCP in days, or at any time if your condition does not improve or worsens. Any acute change should prompt a visit to the nearest Emergency Department. . Not available 06/17/2022 11:51:05 Reason for Referral None Reported. Results Created Date Observation Date Name Description Value Unit Range Abnormal Flag Note LastModifiedBy Organization Detail LastModifiedTime 06/17/19 23 06/20/2022 BETA STREP GP A CULTU RE beta strep gp A culture NEGATI VE Refer ence Range : Negat corby Not Available [facility] ([facility]) [address] [facility], [place], [address], 06/21/2022 06:07:19 06/17/19 23 06/17/2022 rapid strep group A, throa t Unknown Analyte Normal = Negati ve Not Available [facility] [address] [place] [address], [phone], 06/17/2022 11:17:20 06/17/19 23 06/17/2022 rapid strep group A, throa t Unknown Analyte negati ve Not Available [address] [address] [place] [address], [phone], 06/17/2022 11:17:20 Result Notes None recorded. Problems Name Problem SNOMED Code Status Onset Date Resolution Date Notes Provider Name and Address Organization Details Recorded Time Ulcerative colitis 24760177 Active 023 SANDY DEPINTO null, PA - [facility] 3 11:22:00 Problem Notes None recorded. Procedures Surgical History Date Name Laterality Status Provider Name and Address Organization Details Recorded Time Dx lmbr spi pnxr completed SANDY DEPINTO PA - [facility] 06/17/2022 11:22:47 extraction of wisdom tooth completed SANDY DEPINTO PA - [facility] 06/17/2022 11:22:55 Imaging Results None recorded. Procedure Notes None recorded. Medical Equipment None Reported. Allergies Allergen ID Allergen Name Allergen Category Reaction Reaction Severity Criticality Documentation Date Start Date Code Code System Note Provider Name and Address Organization Details Recorded Time 228003 acetamino phen / oxycodone medicatio n rash Not available Not available 06/17/2022 25381 3 RxNorm SANDY DEPINTO null, PA - [facility] 3 11:19:14 [id number] doxycycli ne Not available rash Not available Not available 06/17/2022 3640 RxNorm SANDY DEPINTO null, PA - [facility] 3 11:19:30 Medications Name Sig Start Date Stop Date Status Note LastModified by Organization Details LastModified Time neomycin-po lymyxin-hyd rocort 3.5 mg/mL-10,00 0 unit/mL-1 % ear solution INSTILL 4 DROPS IN EACH AFFECTED EAR 3 TIMES A DAY 06/17 completed Not Available Not Available Not Available prednisone 10 mg tablet TAKE 3 TABLETS BY MOUTH DAILY 06/17 completed Not Available Not Available Not Available doxycycline hyclate 100 mg capsule TAKE 1 CAPSULE BY MOUTH TWICE A DAY 06/17 completed Not Available Not Available Not Available phenazopyri dine 200 mg tablet TAKE 1 TABLET BY MOUTH EVERY 8 HOURS FOR 2 DAYS. DRINK WITH PLENTY OF WATER 06/17 completed Not Available Not Available Not Available prednisone 20 mg tablet TAKE 1 AND 1/2 TABLETS BY MOUTH DAILY FOR 5 DAYS 06/17 completed Not Available Not Available Not Available sertraline 100 mg tablet TAKE 1 AND 1/2 TABLET BY MOUTH EVERY DAY active Not Available Not Available No t Available doxycycline monohydrate 100 mg tablet TAKE 1 TABLET BY MOUTH TWICE A DAY 06/17 completed Not Available Not Available Not Available amoxicillin 875 mg tablet TAKE 1 TABLET BY MOUTH TWICE A DAY FOR 10 DAYS 06/17 completed Not Available Not Available Not Available betamethaso ne valerate 0.1 % topical cream APPLY TWICE A DAY TO AFFECTED AREA FOR 7 DAYS. 06/17 completed Not Available Not Available Not Available phenazopyri dine 100 mg tablet TAKE 1 TABLET BY MOUTH THREE TIMES A DAY 06/17 completed Not Available Not Available Not Available cephalexin 500 mg capsule TAKE 1 CAPSULE BY MOUTH EVERY 6 HOURS FOR 7 DAYS 06/17 completed Not Available Not Available Not Available prednisone 50 mg tablet Take 1 tablet every day by oral route in the morning for 4 days. 2022 active Not Available Not Available Not Avai lable hydrocortis one 100 mg/60 mL enema INSERT 60 ML EVERY DAY BY RECTAL ROUTE FOR 30 DAYS. active Not Available Not Available No t Available mupirocin 2 % topical ointment APPLY 1 APPLICATI ON (TOPICAL) 3 TIMES PER DAY FOR 10 DAYS APPLY SPARINGLY 06/17 completed Not Available Not Available Not Available propranolol 20 mg tablet TAKE 1 TABLET BY MOUTH TWICE A DAY NEEDED ANXIETY/P ANIC active Not Available Not Available No t Available ondansetron 4 mg disintegrat ing tablet ONE TABLET SUBLINGUA L EVERY 8 HOURS NEEDED FOR NAUSEA OR VOMITING. 06/17 completed Not Available Not Available Not Available doxycycline hyclate 100 mg tablet 06/17 completed Not Available Not Available Not Available amoxicillin 875 mg-potzuleikaiu m clavulanate 125 mg tablet TAKE 1 TABLET BY MOUTH EVERY 12 HOURS 06/17 completed Not Available Not Available Not Available bupropion HCl XL 150 mg 24 hr tablet, extended release TAKE 1 TABLET BY MOUTH EVERY DAY IN THE MORNING active Not Available Not Available No t Available Motion Sickness Relief (meclizine) 25 mg chewable tablet TAKE 1 TABLET (ORAL) 4 TIMES PER DAY NEEDED 06/17 completed Not Available Not Available Not Available nitrofurant oin monohydrate /macrocryst als 100 mg capsule TAKE 1 CAPSULE BY MOUTH TWICE A DAY 06/17 completed Not Available Not Available Not Available mesalamine 1,000 mg rectal suppository UNWRAP & INSERT 1 SUPPOSITO RY EVERY DAY BY RECTAL ROUTE FOR 90 DAYS. 06/17 completed Not Available Not Available Not Available fexofenadin e-pseudoeph edrine ER 180 mg-240 mg tablet,ext. release 24 hr Take 1 tablet every day by oral route in the evening for 10 days. 2022 active Not Available Not Available Not Avai lable mesalamine 1.2 gram tablet,jorge alberto yed release TAKE 2 TABLETS BY MOUTH EVERY DAY FOR 30 DAYS 06/17 completed Not Available Not Available Not Available Gavilyte-C 240 gram-22.72 gram-6.72 gram-5.84 gram oral solution TAKE 4000 ML BY ORAL ROUTE. 06/17 completed Not Available Not Available Not Available Entyvio every 5 wks active Not Available Not Available No t Available Vitals Date Recorded Body height Body mass index (BMI) Body weight Pain severity - 0-10 verbal numeric rating [Score] - Reported Body temperature Respiratory rate Heart rate Oxygen saturation Oxygen saturation in Arterial blood by Pulse oximetry Systolic And Diastolic Provider Name and Address Organization Details Last Updated DateTime 3 149.86 cm 48.5 kg/m2 701438. 17 g 0 97.1 [degF] 19 /min 68 /min 98 % 98 % 119/81 mm[Hg] SANDY WALL PA - [facility] 11:26:09 Social History Question Answer Notes LastModified by Organizat ion Details LastModified Time Tobacco Smoking Status Never Smoker SANDY WALL null, PA - [facility] 06/17/2022 11:22:27 Have You Recently Traveled Abroad? No Information not available 06/17/2022 Sex: Unknown Functional Status Question Answer Note LastModified by Organizat ion Details LastModified Time Do you use any illicit or recreational drugs? No Information not available 06/17/2022 Do you or have you ever used any other forms of tobacco or nicotine? No Information not available 06/17/2022 What is your level of alcohol consumption? None Information not available 06/17/2022 Mental Status None recorded. Family History Relationship Description Onset Age of this Age Resolved Age Notes LastModified by Organization Details LastModified Time Mother Fibromyalgia Not avai lable 06/17/2022 11:22:16 Father Diabetes mellitus Not available 2022 11:22:20 Medical History No medical history recorded. Gynecological HistoryNo gynecological history recorded. Obstetrics History GPAL:G 0 P 0 0 0 0 Past Encounters Encounter ID Performer Location Encounter Start Date Encounter Closed Date Diagnosis/Indication Diagnosis SNOMED-CT Code Diagnosis ICD10 Code Diagnosis IMO Codes Diagnosis [id number] [facility] [address] [address] 08/30/2018 11:15:31 08/30/2018 13:40:22 [id number] [facility] [address] [address] 02/11/2018 12:34:15 02/11/2018 13:40:56 [id number] [address] [facility] [address] [place] [address] 02/21/2022 16:33:16 02/21/2022 18:09:[id number] [place] [address] 04/04/2019 11:54:06 04/04/2019 13:12:05 [id number] [address] [facility] [address] [facility] [address] [place] [address] 03/19/2018 11:07:33 03/19/2018 11:43:32 [id number] [address] [facility] [address] [facility] [address] [place] [address] 07/09/2018 12:58:12 07/09/2018 14:18:59 [id number] [facility] [address] [facility] [address] [place] [address] 11/28/2021 14:58:19 11/28/2021 16:21:27 [id number] [address] Tisha Goodrich [address] [address] [place] [address] 08/10/2021 18:16:11 08/10/2021 19:15:51 [id number] [facility] [address] [facility] [address] [place] [address] 03/06/2019 12:40:52 03/06/2019 13:56:26 [id number] [facility] [address] [place] [address] 05/09/2018 13:55:10 05/09/2018 14:40:07 [id number] [facility] [address] [facility] [address] [place] [address] 07/31/2019 10:34:56 07/31/2019 11:24:19 [id number] Jesus Barroso NP [address] [address] [place] [address] 06/17/2022 10:45:53 06/17/2022 11:52:29 Nasopharyngitis [id number] J00 Health Concerns Section Related Observation LastModified by Organization Detai ls LastModified Time None Recorded Concern Status LastModified by Organization Details LastModified Time None Recorded Advance Directives Directive None Recorded Payers Insurance Date Sequence Insurance Name Policy Number Policy Han Covered Member ID Han Member ID Guarantor Name 06/17/2022 1 [facility] [id number] Arely Minor [id number] Arely Brunabertha Notes Date Note Type Note Provider Name and Address Organization Details Recorded Time 06/17/2022 text/html Sore throatRepor alina by Patientsore throat x 1 day . hard to swallow .ROS as noted in the HPI Jesus Barroso NP [address] [place], [address], [place] - [facility] 06/17/2022 11:52:04 OBGyn Episode No OBEpisode recorded.
--- OUTSIDE RECORDS SUMMARY | 2025-04-09 03:56 | XMS_ITS | Encounter Summary ---
Author Organization [facility] Address [address] [place] [address] Care Team Providers Care Drawer Upfitter Name Role Phone Di Amisha Fernandez DO Primary Care Provider [phone] Di Amisha Fernandez DO Primary Care Provider [phone] Encounter Details Date Type Department Care Team (Late st Contact Info) Description 12/06/2008 Orders Only [facility] [address] [place] [address] Amisha Holt DO [address] [place] [address] Social History Tobacco Use Types Packs/Day Years [...] of this encounter Procedures * Due to [place] [employer] law, this organization might not be sharing negative HIV tests. Procedure Name Priority Date/Time Associated Diagnosis Comments CULTURE, STREP SCREEN (GROUP A), THROAT Routine 12/06/2008 Fever documented in this encounter Results * Due to [place] [employer] law, this organization might not be sharing negative HIV tests. * CULTURE, STREP SCREEN (GROUP A), THROAT (12/06/2008) Result(s) SEE TEXT [facility] Comment: SOURCE: THROAT NO GROUP A STREPTOCOCCI ISOLATED 12/06/2008 12/07/2008 12: 22 AM EDT us Amisha Holt DO LABORATORY Final Result Performing Organization Address City/State/[facility] Co de Phone Number [facility] [address] [place] [address] documented in this encounter Visit Diagnoses Diagnosis Fever Fever, unspecified documented in this encounter Care Teams Drawer Upfitter Relationship Specialty Start Date End Date Amisha Holt DO [address] [place] [address] PCP - General 07/04/09 07/26/20 Amisha Holt DO [address] [place] [address] PCP - General 12/01/08 07/03/09 documented as of this encounter
--- OUTSIDE RECORDS SUMMARY | 2025-04-09 03:56 | XMS_ITS | Encounter Summary ---
Author Organization [facility] Address [address] [place] [address] Care Team Providers Care Interactive Web Developer Name Role Phone Amisha Holt DO Primary Care Provider [phone] Encounter Details Date Type Department Care Team ([facility] st Contact Info) Description 11/08/2017 Orders Only [facility] [address] [facility] [address] [place] [address] Emerson Allen MD [address] [place] [address] Social History Tobacco Use Types Packs/Day Years Used Date Smoking Tobacco: Never Smokeless Tobacco: Never Alcohol Use Standard Drinks/Week Comments [...] of this encounter Procedures * Due to [place] state law, this organization might not be sharing negative HIV tests. Procedure Name Priority Date/Time Associated Diagnosis Comments CELL COUNT AND DIFF, CSF Routine 11/08/2017 11:20 AM EDT CELL COUNT AND DIFF, CSF Routine 11/08/2017 10:15 AM EDT Papilledema CYTOLOGY,PLEURAL FLUID, WASHINGS AND BURSHINGS Routine 11/08/2017 10:15 AM EDT Papilledema CULTURE, CSF Routine 11/08/2017 10:15 AM EDT Papilledema VDRL, CSF Routine 11/08/2017 10:15 AM EDT Papilledema PROTEIN, TOTAL, CSF Routine 11/08/2017 1 0:15 AM EDT Papilledema OLIGOCLONAL BANDS (IGG), CSF Routine 11/08/2017 10:15 AM EDT Papilledema GLUCOSE (BLOOD) Routine 11/08/2017 10:15 AM EDT Papilledema GLUCOSE, CSF Routine 11/08/2017 10:15 AM EDT Papilledema IGG SYNTHESIS RATE Routine 11/08/2017 10 :15 AM EDT Papilledema documented in this encounter Results * Due to [place] state law, this organization might not be sharing negative HIV tests. * CELL COUNT AND DIFF, CSF (11/08/2017 11:20 AM EDT) Color (CSF) COLORLESS COLORLESS [facility] Appearance (CSF) CLEAR CLEAR [facility] Erythrocytes (CSF) 4 0 - 10 cells/uL [facility] Leukocytes (CSF) 0 0 - 5 cells/uL [facility] Neutrophils/100 leukocytes (CSF) CANCELED % [facility] Comment: TEST(S) NOT PERFORMED: NEUTROPHILS, % LYMPHOCYTES, % MONOCYTE/MACROPHAGE, % EOSINOPHILS, % BASOPHILS, % COMMENTS * Unable to report due to * * insufficient analyzable cells. * Result canceled by the ancillary 11/08/2017 11:2 0 AM EDT 11/08/2017 11:28 AM EDT Emerson Allen MD LAB SAME DAY RESULT Final Result Performing Organization Address [facility] de Phone Number [facility] [address] [place] [address] * OLIGOCLONAL BANDS (IGG), CSF (11/08/2017 10:15 AM EDT) Protein fractions.oligocl onal bands (CSF) see note [facility] Comment: No bands Reference Range: No bands No Oligoclonal bands are identified in the patient's CSF when compared to the corresponding Serum. Oligoclonal bands are present in the CSF of more than 85% of patients with clinically definite multiple sclerosis (MS). To distinguish between oligoclonal bands in the CSF due to a peripheral gammopathy and oligoclonal bands due to local production in the RAW [employer]ODU[employer], serum and CSF should be tested simultaneously. Oligoclonal bands can however be observed in a variety of other diseases, e.g., subacute sclerosing panen- cephalitis, inflammatory polyneuropathy, [employer] lupus, and brain tumors and infarctions. The clinical significance of a numerical band count, determined by isoelectric focusing, has not been definitively defined. The data should be interpreted in conjunction with all pertinent clinical and laboratory data for this patient. 11/08/2017 10:1 5 AM EDT 11/08/2017 11:22 AM EDT Narrative Resulting Agency Comment [id number] Emerson Allen MD LABORATORY Final Result Performing Organization Address [facility] de Phone Number [facility] [address] [place] [address] * (ABNORMAL) IGG SYNTHESIS RATE (11/08/2017 10:15 AM EDT) IgG synthesis rate (Ser+CSF) -4.8 -9.9 - 3.3 mg/24 h [facility] IgG index (Ser+CSF) 0.43 <0.66 [facility] Comment: The IgG Synthesis rate, CSF and IgG index, CSF are two formulae for estimating the amount of IgG produced in the central nervous system. Evidence of increased synthesis of IgG provides support for the diagnosis of multiple sclerosis. Albumin (CSF) 5.5(L) 8.0 - 42.0 mg/dL [facility] IgG (CSF) 0.7(L) 0.8 - 7.7 mg/dL [facility] IgG 1130 694 - 1618 mg/dL [facility] Albumin 3.8 3.5 - 5.2 g/dL [facility] 11/08/2017 10:1 5 AM EDT 11/08/2017 11:22 AM EDT Narrative Resulting Agency Comment [id number] Emerson Allen MD LABORATORY Final Result Performing Organization Address [facility] Co de Phone Number [facility] [address] [place] [address] * CYTOLOGY, FLUID, WASHINGS AND BRUSHINGS (OTHER MISC. (11/08/2017 10:15 AM EDT) Screener BL,CT(ASCP) CT screening location: [place] [address] [facility] Pathologist Name Claudia Gonzalez M.D., Board Certified in Anatomic and Clinical Pathology (electronic signature) Consulting Pathologist [facility] [address] [place] [address] [facility] Specimen source CSF [facility] Procedure Cytology [facility] Gross Observation SEE NOTE [facility] Comment: The name on the container is in agreement with the requisition. 3 mL of clear colorless fluid, received in unknown fixative and processed by the Thinprep method. (SS)11/11/2017 Gross exam(s) performed at: [facility] [address] [address] Aeronautical Research Engineer: GILMER GILBERT MD FINAL DIAGNOSIS Negative for malignant cells. Rare urothelial cells. Suggest a repeat test with a second morning voided urine sample. [facility] 11/08/2017 10:1 5 AM EDT 11/10/2017 1:55 AM EDT Narrative Resulting Agency Comment [id number] Emerson Allen MD PATHOLOGY-INTERFACED Final Resul t Performing Organization Address [facility]/ZIP Co de Phone Number [facility] [address] [place] [address] * CULTURE, CSF (11/08/2017 10:15 AM EDT) Bacteria culture (CSF) SEE NOTE [facility] Comment: CULTURE, CSF MICRO NUMBER: [id number] TEST STATUS: FINAL SPECIMEN SOURCE: CEREBROSPINAL FLUID (CSF) SPECIMEN QUALITY: ADEQUATE GRAM STAIN: No organisms or white blood cells seen RESULT: No growth after 5 days 11/08/2017 10:1 5 AM EDT 11/08/2017 11:22 AM EDT Narrative Resulting Agency Comment [id number] Emerson Allen MD LABORATORY Final Result Performing Organization Address [facility] Co de Phone Number [facility] [address] [place] [address] * VDRL, CSF (11/08/2017 10:15 AM EDT) Pathologist [facility] Reagin Ab (CSF) Nonreactive Nonreactive [facility] 11/08/2017 10:1 5 AM EDT 11/08/2017 11:22 AM EDT Narrative Resulting Agency Comment [id number] Emerson Allen MD LABORATORY Final Result Performing Organization Address [facility] de Phone Number [facility] [address] [place] [address] * PROTEIN, TOTAL, CSF (11/08/2017 10:15 AM EDT) Pathologist [facility] Protein (CSF) 18 15 - 45 mg/dL [facility] 11/08/2017 10:1 5 AM EDT 11/08/2017 11:22 AM EDT Narrative Resulting Agency Comment [id number] Emerson Allen MD LABORATORY Final Result Performing Organization Address [facility] Co de Phone Number [facility] [address] [place] [address] * GLUCOSE, CSF (11/08/2017 10:15 AM EDT) Glucose (CSF) 59 40 - 80 mg/dL [facility] 11/08/2017 10:1 5 AM EDT 11/08/2017 11:22 AM EDT Narrative Resulting Agency Comment [id number] Emerson Allen MD LABORATORY Final Result Performing Organization Address [facility] Co de Phone Number [facility] [address] [place] [address] * CELL COUNT AND DIFF, CSF (11/08/2017 10:15 AM EDT) Color (CSF) COLORLESS COLORLESS [facility] Appearance (CSF) CLEAR CLEAR [facility] Erythrocytes (CSF) 8 0 - 10 cells/uL [facility] Leukocytes (CSF) 0 0 - 5 cells/uL [facility] Neutrophils/100 leukocytes (CSF) CANCELED % [facility] Comment: TEST(S) NOT PERFORMED: NEUTROPHILS, % LYMPHOCYTES, % MONOCYTE/MACROPHAGE, % EOSINOPHILS, % BASOPHILS, % COMMENTS * Unable to report due to * * insufficient analyzable cells. * Result canceled by the ancillary 11/08/2017 10:1 5 AM EDT 11/08/2017 11:22 AM EDT Emerson Allen MD LAB SAME DAY RESULT Final Result Performing Organization Address [facility] Co de Phone Number [facility] [address] [place] [address] * GLUCOSE (BLOOD) (11/08/2017 10:15 AM EDT) Glucose 96 65 - 99 mg/dL [facility] Comment:Fasting reference in terval 11/08/2017 10:1 5 AM EDT 11/08/2017 11:22 AM EDT Emerson Allen MD LAB SAME DAY RESULT Final Result Performing Organization Address [facility] Co de Phone Number [facility] [address] [place] [address] documented in this encounter Visit Diagnoses Diagnosis Papilledema documented in this encounter Care Teams Interactive Web Developer Relationship Specialty Start Date End Date Amisha Holt DO [address] [place] [address] PCP - General 07/04/09 07/26/20 documented as of this encounter
--- OUTSIDE RECORDS SUMMARY | 2025-04-09 03:56 | XMS_ITS | Encounter Summary ---
Author Organization [facility] Address [address] [place] [address] Care Team Providers Care Welder/Fitter Name Role Phone Amisha Holt DO Primary Care Provider [phone] Encounter Details Date Type Department Care Team (Late st Contact Info) Description 04/10/2011 Orders Only [facility] [address] [place] [address] Renate Haider MD Social History Tobacco Use Types Packs/Day [...] this encounter Procedures * Due to [place] [employer] law, this organization might not be sharing negative HIV tests. Procedure Name Priority Date/Time Associated Diagnosis Comments TSH, 3RD GENERATION Routine 04/10/2011 4 :16 PM EST Screening for thyroid disorder T4, FREE, SERUM Routine 04/10/2011 4:16 PM EST Screening for thyroid disorder documented in this encounter Results * Due to [place] [employer] law, this organization might not be sharing negative HIV tests. * T4, FREE, SERUM (04/10/2011 4:16 PM EST) FT4 1.1 0.9 - 1.4 ng/dL [facility] Comment:{T4, FREE {[id number]) 04/10/2011 4:16 PM EST 04/10/2011 11:08 PM EST Narrative Resulting Agency Comment [id number] Renate Haider MD LABORATORY Final Result [facility] [address] [place] [address] * TSH, 3RD GENERATION (04/10/2011 4:16 PM EST) TSH 2.07 mIU/L [facility] Comment: {TSH, 3RD GENERATION {[id number]) Reference Range 1-19 Years 0.50-4.30 Ranges First trimester 0.20-4.70 Second trimester 0.30-4.10 Third trimester 0.40-2.70 04/10/2011 4:16 PM EST 04/10/2011 11:08 PM EST Narrative Resulting Agency Comment [id number] Renate Haider MD LABORATORY Final Result [facility] [address] [place] [address] documented in this encounter Visit Diagnoses Diagnosis Screening for thyroid disorder documented in this encounter Care Teams Welder/Fitter Relationship Specialty Start Date End Date Amisha Holt DO [address] [place] [address] PCP - General 07/04/09 07/26/20 documented as of this encounter
--- OUTSIDE RECORDS SUMMARY | 2025-04-09 03:56 | XMS_ITS | Clinical Summary ---
Author Organization [facility] ity Address [address] [place] [address] Care Team Providers Care Instrument Worker Name Role Phone Unavailable Primary Care Provider Unavailabl e Social History Tobacco Use Types Packs/Day Years Used Date Smoking Tobacco: Never Assessed Comments Unknown Sex and Gender Information Value Date Recorded Sex Assigned at Not on file Legal Sex Female 2:41 PM EST Gender Identity Not on file Sexual Orientation Not on file Plan of Treatment Health Maintenance Due Date Last Done Comments DTaP,Tdap,and Td Vaccines (1 - Tdap) 2017 Hepatitis B Vaccines (1 of 3 - 19+ 3-dose series) 2017 Cervical Cancer Screening: P ap Smear 2019 Depression Screening 06/03/2024 HPV Vaccines (1 - 3-dose SCD M series) 2025 COVID-19 Vaccine ( - 2023-2 5 season) 2025 Influenza Vaccine (#1) 2025 RSV Immunization Adult Patie nts (1 - 1-dose 75+ series) 2073 HIB Vaccines Aged Out No longer eligi ble based on patient's age to complete this topic Hepatitis A Vaccines Aged Out No long er eligible based on patient's age to complete this topic IPV Vaccines Aged Out No longer eligi ble based on patient's age to complete this topic MMR Vaccines Aged Out No longer eligi ble based on patient's age to complete this topic Meningococcal ACWY Vaccine Aged Out N o longer eligible based on patient's age to complete this topic Meningococcal B Vaccine Aged Out No l onger eligible based on patient's age to complete this topic Pneumococcal Vaccine: Pediat rics (0 to 5 Years) and At-Risk Patients (6 to 49 Years) Aged Out No longer eligible b ased on patient's age to complete this topic RSV Immunization Patients Un stefany 20 months Aged Out No longer eligible b ased on patient's age to complete this topic Varicella Vaccines Aged Out No longer eligible based on patient's age to complete this topic
--- OUTSIDE RECORDS SUMMARY | 2025-04-09 03:56 | XMS_ITS | Encounter Summary ---
Author Organization [facility] Address [address] [place] [address] Care Team Providers Care Cost Engineer Name Role Phone Amisha Holt DO Primary Care Provider [phone] Encounter Details Date Type Department Care Team (Late st Contact Info) Description 01/01/2017 Psychiatric Only [facility] [address] [place] [address] Amisha Holt DO [address] [place] [id number] Social History Tobacco Use Types Packs/Day Years [...] this encounter Procedures * Due to [place] [employer] law, this organization might not be sharing negative HIV tests. Procedure Name Priority Date/Time Associated Diagnosis Comments CHLAMYDIA TRACHOMATIS/N. GONORRHOEAE (GC) RNA, TMA (URINE) Routine 01/01/2017 5:34 PM EDT Encounter for screening for infections with predominantly sexual mode of transmission documented in this encounter Results * Due to [place] [employer] law, this organization might not be sharing negative HIV tests. * CHLAMYDIA TRACHOMATIS/N. GONORRHOEAE (GC) RNA, TMA (URINE) (01/01/2017 5:34 PM EDT) Chlamydia trachomatis rRNA NOT DETECTED NOT DETECTED [facility] Neisseria Gonorrhoeae rRNA NOT DETECTED NOT DETECTED [facility] COMMENT SEE NOTE [facility] Comment: This test was performed using the APTIMA COMBO2 Assay ([employer] The analytical performance characteristics of this assay, when used to test [employer] specimens have been determined by [employer]. 01/01/2017 5:34 PM EDT 01/01/2017 10:52 PM EDT Narrative Resulting Agency Comment [id number] Amisha Holt DO LABORATORY Final Result Performing Organization Address City/State/[facility] Co de Phone Number [facility] [address] [place] [address] documented in this encounter Visit Diagnoses Diagnosis Encounter for screening for infections with predominantly sexual mode of transmission Screening examination for venereal disease documented in this encounter Care Teams Cost Engineer Relationship Specialty Start Date End Date Amisha Holt DO [address] [place] [address] PCP - General 07/04/09 07/26/20 documented as of this encounter
--- OUTSIDE RECORDS SUMMARY | 2025-04-09 03:56 | XMS_ITS | Data Portability ---
Author Organization [place] - [facility] - IP Address [address] [place] [address] Care Team Providers Care Contact Worker Name Role Phone VELMA KIM NP Primary Care Provider Assessment No assessment recorded. Plan of Treatment Reminders Order Date Submit Date Provider Last Modified By Organization Details Last Modified Time Details Appointments None recorded. Lab None recorded. Referral None recorded. Procedures None recorded. Surgeries None recorded. Imaging None recorded. Medication Orders mesalamine 1.2 gram tablet,jorge alberto yed release 2021 022 [facility][id number], [address] [facility], [place], [address], 11:18:44 Patient TargetsNo targets recorded. Patient Instructions Encounter Date Encounter Id Patient Instructions Last Modified By Organization Details Last Modified Time 10/18/2021 [id number] ulcerative colitis: care instructions Not available 10/19/2021 12:43:44 01/01/2022 [id number] ulcerative colitis: care instructions Not available 01/02/2022 11:03:35 02/07/2022 [id number] ulcerative colitis: care instructions Not available 02/08/2022 11:18:42 04/03/2022 [id number] diarrhea: care instructions Not available 04/04/2022 11:14:05 abdominal pain: care instructions Not available 04/04/2022 11:14:05 ulcerative colitis: care instructions Not available 04/04/2022 11:14:05 rectal bleeding: care instructions Not available 04/04/2022 11:14:05 11/20/2022 [id number] ulcerative colitis: care instructions [email or web address] Not available 11/22/2022 10:55:35 Reason for Referral None Reported. Results Created Date Observation Date Name Description Value Unit Range Abnormal Flag Note LastModifiedBy Organization Detail LastModifiedTime 10/13/19 22 10/13/2021 BASIC METAB OLIC PANEL glucose Not Available [facility] [place], [address], 10/13/2021 01:33:11 10/13/19 22 10/13/2021 BASIC METAB OLIC PANEL urea nitrogen (BUN) Not Available [facility] [address] [place], [place] [address], [address], 10/13/2021 01:33:11 10/13/19 22 10/13/2021 BASIC METAB OLIC PANEL creatinine Not Available [facility] [address] [place], [place] [address], [address], 10/13/2021 01:33:11 10/13/19 22 10/13/2021 BASIC METAB OLIC PANEL eGFR non-afr. eritrean Not Available [facility] [place], [address], 10/13/2021 01:33:11 10/13/19 22 10/13/2021 BASIC METAB OLIC PANEL eGFR Not Available [facility] [place], [address], 10/13/2021 01:33:11 10/13/19 22 10/13/2021 BASIC METAB OLIC PANEL BUN/creatini ne ratio Not Available [facility] [place], [address], 10/13/2021 01:33:11 10/13/19 22 10/13/2021 BASIC METAB OLIC PANEL sodium Not Available [facility] [address] [place], [address], 10/13/2021 01:33:11 10/13/1910/13/2021 BASIC METAB OLIC PANEL potassium Not Available [facility] [address] [place], [address], 10/13/2021 01:33:11 10/13/19 22 10/13/2021 BASIC METAB OLIC PANEL chloride Not Available [facility] [address] [place], [address], 10/13/2021 01:33:11 10/13/1910/13/2021 BASIC METAB OLIC PANEL carbon dioxide Not Available [facility] [address] [place], [address], 10/13/2021 01:33:11 10/13/19 22 10/13/2021 BASIC METAB OLIC PANEL calcium Not Available [facility] [address] [place], [address], 10/13/2021 01:33:11 10/13/19 22 10/13/2021 BASIC METAB OLIC PANEL copy(ies) [facility]: [facility] JOHAN [address] [place] [address] [place] [address] Not Available [facility] [address] [place], [address], 10/13/2021 01:33:11 10/13/1910/13/2021 HEPAT IC FUNCT ION PANEL protein, total 6.9 g/dL 6.1-8. 1 normal Not Available [facility] [address] [place], [address], 10/13/2021 02:44:10 10/13/19 22 10/13/2021 HEPAT IC FUNCT ION PANEL albumin 4.0 g/dL 3.6-5. 1 normal Not Available [facility] [place], [address], 10/13/2021 02:44:10 10/13/19 22 10/13/2021 HEPAT IC FUNCT ION PANEL globulin 2.9 g/dL_ (calc ) 1.9-3. 7 normal Not Available [facility] [place], [address], 10/13/2021 02:44:10 10/13/19 22 10/13/2021 HEPAT IC FUNCT ION PANEL albumin/glob ulin ratio 1.4 (calc ) 1.0-2. 5 normal Not Available [facility] [place], [address], 10/13/2021 02:44:10 10/13/19 22 10/13/2021 HEPAT IC FUNCT ION PANEL bilirubin, total 0.3 mg/dL 0.2-1. 2 normal Not Available [facility] [place], [address], 10/13/2021 02:44:10 10/13/19 22 10/13/2021 HEPAT IC FUNCT ION PANEL bilirubin, direct 0.1 mg/dL < or = 0.2 normal Not Available [facility] [place], [address], 10/13/2021 02:44:10 10/13/19 22 10/13/2021 HEPAT IC FUNCT ION PANEL bilirubin, indirect 0.2 mg/dL _(desi c) 0.2-1. 2 normal Not Available [facility] [place], [address], 10/13/2021 02:44:10 10/13/19 22 10/13/2021 HEPAT IC FUNCT ION PANEL alkaline phosphatase 46 U/L 31-125 normal Not Available [facility] [place], [address], 10/13/2021 02:44:10 10/13/19 22 10/13/2021 HEPAT IC FUNCT ION PANEL AST 12 U/L 10-30 normal Not Available [facility] [place], [address], 10/13/2021 02:44:10 10/13/19 22 10/13/2021 HEPAT IC FUNCT ION PANEL ALT 23 U/L 6-29 normal Not Available [facility] [place], [address], 10/13/2021 02:44:10 10/13/19 22 10/13/2021 HEPAT IC FUNCT ION PANEL copy(ies) sent to: [facility] JOHAN [address] [address] [place] [address] Not Available [facility] [place], [address], 10/13/2021 02:44:10 10/13/19 22 10/13/2021 CBC (H/H, RBC, INDIC ES, WBC, PLT) white blood cell count 10.8 thous and/u L 3.8-10 .8 normal Not Available [facility] [place], [address], 10/13/2021 01:33:12 10/13/19 22 10/13/2021 CBC (H/H, RBC, INDIC ES, WBC, PLT) red blood cell count 4.36 mary on/uL 3.80-5 .10 normal Not Available [facility] [place], [address], 10/13/2021 01:33:12 10/13/19 22 10/13/2021 CBC (H/H, RBC, INDIC ES, WBC, PLT) hemoglobin 12.4 g/dL 11.7-1 5.5 normal Not Available [facility] [place], [address], 10/13/2021 01:33:12 10/13/19 22 10/13/2021 CBC (H/H, RBC, INDIC ES, WBC, PLT) hematocrit 37.1 % 35.0-4 5.0 normal Not Available [facility] [address] [place], [place] [address], [address], 10/13/2021 01:33:12 10/13/19 22 10/13/2021 CBC (H/H, RBC, INDIC ES, WBC, PLT) MCV 85.1 fL 80.0-1 00.0 normal Not Available [facility] [address] [place], [place] [address], [address], 10/13/2021 01:33:12 10/13/19 22 10/13/2021 CBC (H/H, RBC, INDIC ES, WBC, PLT) MCH 28.4 pg 27.0-3 3.0 normal Not Available [facility] [address] [place] [address], [address], 10/13/2021 01:33:12 10/13/19 22 10/13/2021 CBC (H/H, RBC, INDIC ES, WBC, PLT) MCHC 33.4 g/dL 32.0-3 6.0 normal Not Available [facility] [address] [place], [place] [address], [address], 10/13/2021 01:33:12 10/13/19 22 10/13/2021 CBC (H/H, RBC, INDIC ES, WBC, PLT) RDW 12.1 % 11.0-1 5.0 normal Not Available [facility] [address] [place] [address], [address], 10/13/2021 01:33:12 10/13/19 22 10/13/2021 CBC (H/H, RBC, INDIC ES, WBC, PLT) platelet count 318 thous and/u L 140-40 0 normal Not Available [facility] [address] [place] [address], [address], 10/13/2021 01:33:12 10/13/1910/13/2021 CBC (H/H, RBC, INDIC ES, WBC, PLT) MPV 8.9 fL 7.5-12 .5 normal Not Available [facility] [address] [place] [address], [address], 10/13/2021 01:33:12 10/13/1910/13/2021 CBC (H/H, RBC, INDIC ES, WBC, PLT) copy(ies) sent to: [facility] TREVA [place] [facility] NCE [address] [place] [address] [place] [address] Not Available [facility] [address] [place] [address], [address], 10/13/2021 01:33:12 10/13/1910/18/2021 VEDOL IZUMA B QUANT ITATI ON WITH ANTIB ODIES , SERUM vedolizumab qn, S 8.1 mcg/m L low ----- ----- ----- ----R EFERE NCE VALUE ----- ----- ----- ----- ----- - Lower limit of quant itati on = 2.0 mcg/m L ----- ----- ----- ----A DDITI ONAL INFOR AGUSTÍN N---- ----- ----- ----- This test was devel oped and its perfo rmanc e gale cteri stics deter mined by [facility] c in a kailey r consi stent with CLIA requi remen ts. This test has not been clear ed or appro eusebio by the U.S. Food and Drug Admin istra tion. Not Available [facility] [address] [place], [address], 10/18/2021 18:04:20 10/13/19 22 10/18/2021 VEDOL IZUMA B QUANT ITATI ON WITH ANTIB ODIES , SERUM vedolizumab Ab, S <9.8 NG/mL <9.8 Not Available [facility] [address] [place] [address], [address], 10/18/2021 18:04:20 10/13/19 22 10/18/2021 VEDOL IZUMA B QUANT ITATI ON WITH ANTIB ODIES , SERUM vemab interpretati on Absen ce of detec table antib miguel ángel-t o-eusebio olizu mab. ----- ----- ----- ----A DDITI ONAL INFOR MATDAMIAN N---- ----- ----- ----- This test was devel oped and its perfo rmanc e gale diezri stics deter mined by [facility] in a kailey r consi stent with CLIA requi remen ts. This test has not been clear ed or appro eusebio by the U.S. Food and Drug Admin istra tion. Not Available [facility] [address] [place] [address], [address], 10/18/2021 18:04:20 10/13/19 22 10/18/2021 VEDOL IZUMA B QUANT ITATI ON WITH ANTIB ODIES , SERUM copy(ies) sent to: [facility] N[facility] [address] [place] [address] Not Available [facility] [address] [place], [address], 10/18/2021 18:04:20 10/13/19 22 10/13/2021 BASIC METAB OLIC PANEL glucose 139 mg/dL 65-99 high Fasti ng refer ence inter dimple For someo ne witho ut known diabe antonia, a gluco se value >125 mg/dL indic ates that they may have diabe antonia and this shoul d be confi rmed with a follo w-up test. Not Available [facility] [address] [place], [address], 10/13/2021 02:44:09 10/13/19 22 10/13/2021 BASIC METAB OLIC PANEL urea nitrogen (BUN) 25 mg/dL 7-25 normal Not Available [facility] [address] [place], [address], 10/13/2021 02:44:09 10/13/19 22 10/13/2021 BASIC METAB OLIC PANEL creatinine 0.76 mg/dL 0.50-1 .10 normal Not Available [facility] [address] [place], [place] [address], [address], 10/13/2021 02:44:09 10/13/19 22 10/13/2021 BASIC METAB OLIC PANEL eGFR non-afr. eritrean 111 mL/mi n/1.7 3m2 > or = 60 normal Not Available [facility] [address] [place], [address], 10/13/2021 02:44:09 10/13/19 22 10/13/2021 BASIC METAB OLIC PANEL eGFR 128 mL/mi n/1.7 3m2 > or = 60 normal Not Available [facility] [address] [place], [place] [address] [place], [address], 10/13/2021 02:44:09 10/13/19 22 10/13/2021 BASIC METAB OLIC PANEL BUN/creatini ne ratio NOT APPLIC ABLE (calc ) 6-22 Not Available [facility] [place], [address], 10/13/2021 02:44:09 10/13/19 22 10/13/2021 BASIC METAB OLIC PANEL sodium 138 mmol/ L 135-14 6 normal Not Available [facility] [place], [address], 10/13/2021 02:44:09 10/13/19 22 10/13/2021 BASIC METAB OLIC PANEL potassium 3.7 mmol/ L 3.5-5. 3 normal Not Available [facility] [place], [address], 10/13/2021 02:44:09 10/13/19 22 10/13/2021 BASIC METAB OLIC PANEL chloride 105 mmol/ L 98-110 normal Not Available [facility], [address], 10/13/2021 02:44:09 10/13/19 22 10/13/2021 BASIC METAB OLIC PANEL carbon dioxide 26 mmol/ L 20-32 normal Not Available [facility], [address], 10/13/2021 02:44:09 10/13/19 22 10/13/2021 BASIC METAB OLIC PANEL calcium 8.9 mg/dL 8.6-10 .2 normal Not Available [facility] [place], [address], 10/13/2021 02:44:09 10/13/19 22 10/13/2021 BASIC METAB OLIC PANEL copy(ies) sent to: [facility] PO JENAROE R [facility] HC ALLIA ALE [address] [facility] [address] [place] [phone] Not Available [facility] [address] [facility], [place], [address], 10/13/2021 02:44:09 Result Notes None recorded. Problems Name Problem SNOMED Code Status Onset Date Resolution Date Notes Provider Name and Address Organization Details Recorded Time Rectal hemorrhage 73751029 Active 017 Not Available [facility] 07:43:56 Epigastric pain 69255493 Active 017 Not Available [facility] 07:43:56 Ulcerative colitis 24145963 Active 018 Not Available [facility] 07:43:56 Problem Notes None recorded. Medical Equipment None Reported. Allergies No known drug allergies Medications Name Sig Start Date Stop Date Status Note LastModified by Organization Details LastModified Time amoxicillin 500 mg capsule TAKE 1 CAPSULE BY MOUTH EVERY 8 HOURS active Not Available Not Available No t Available Mirena 21 mcg/24 hr (up to 8 years) 52 mg intrauterin e device active Not Available Not Available Not Available desonide 0.05 % topical cream active Not Available Not Available Not Available albuterol sulfate 0.63 mg/3 mL solution for nebulizatio n INHALE 3 ML'S BY NEBUIZER EVERY 4 TO 6 HOURS (SHORTNES S OF BREATH OR WHEEZING) FOR 7 DAYS active Not Available Not Available No t Available neomycin-po lymyxin-hyd rocort 3.5 mg/mL-10,00 0 unit/mL-1 % ear solution INSTILL 2 DROPS INTO AFFECTED EAR(S) 3 TIMES A DAY FOR 10 DAYS active Not Available Not Available No t Available prednisone 10 mg tablet TAKE 3 TABLETS BY MOUTH DAILY active Not Available Not Available No t Available doxycycline hyclate 100 mg capsule TAKE 1 CAPSULE BY MOUTH TWICE A DAY active Not Available Not Available No t Available albuterol sulfate 2.5 mg/3 mL (0.083 %) solution for nebulizatio n 09/19 completed Not Available Not Available Not Available trazodone 50 mg tablet active Not Available Not Available Not Available cetirizine 10 mg tablet TAKE 1 TABLET BY MOUTH EVERY DAY active Not Available Not Available No t Available azithromyci n 250 mg tablet TAKE 2 TABLETS BY MOUTH TODAY, THEN TAKE 1 TABLET DAILY FOR 4 DAYS DIRECTED active Not Available Not Available No t Available Lidocaine Viscous 2 % mucosal solution SWISH AND SPIT 15MLS BY MOUTH NO MORE FREQUENTL Y THAN EVERY 3 HOURS active Not Available Not Available No t Available benzonatate 200 mg capsule TAKE 1 CAPSULE BY MOUTH THREE TIMES A DAY NEEDED FOR COUGH active Not Available Not Available No t Available fluconazole 200 mg tablet active Not Available Not Available Not Available phenazopyri dine 200 mg tablet TAKE 1 TABLET BY MOUTH EVERY 8 HOURS FOR 2 DAYS. DRINK WITH PLENTY OF WATER active Not Available Not Available No t Available ondansetron HCl 4 mg tablet Take 1 tablet every 8 hours by oral route as needed for 30 days. active Not Available Not Available No t Available prednisone 20 mg tablet TAKE 2 TABLETS BY MOUTH DAILY FOR 5 DAYS active Not Available Not Available No t Available sertraline 100 mg tablet TAKE 1 & 1/2 TABLETS BY MOUTH DAILY active Not Available Not Available No t Available miconazole nitrate 2 % vaginal cream active Not Available Not Available Not Available acetazolami de 250 mg tablet active Not Available Not Available Not Available penicillin V potassium 500 mg tablet TAKE 1 TABLET BY MOUTH TWICE A DAY FOR 10 DAYS active Not Available Not Available No t Available topiramate 25 mg tablet active Not Available Not Available Not Available metronidazo le 500 mg tablet active Not Available Not Available Not Available lidocaine HCl 2 % mucosal jelly Take 1 applicati on every day by mucous route as directed for 30 days. 08/14 completed Not Available Not Available Not Available azathioprin e 50 mg tablet 2 daily for 30 days 12/01 completed Not Available Not Available Not Available ciprofloxac in 250 mg tablet active Not Available Not Available Not Available amlodipine 5 mg tablet active Not Available Not Available Not Available allopurinol 100 mg tablet Take 1 tablet every day by oral route for 90 days. 12/01 completed Not Available Not Available Not Available folic acid 400 mcg tablet TAKE TWO TABLETS BY MOUTH ONCE DAILY DIRECTED active Not Available Not Available No t Available sulfamethox azole 800 mg-trimetho prim 160 mg tablet active Not Available Not Available Not Available doxycycline monohydrate 100 mg tablet TAKE 1 TABLET BY MOUTH TWICE A DAY active Not Available Not Available No t Available lidocaine-p rilocaine 2.5 %-2.5 % topical cream 12/26 completed Not Available Not Available Not Available ofloxacin 0.3 % ear drops INSTILL 5 DROPS INTO AFFECTED EAR(S) TWICE A DAY FOR 7 DAYS active Not Available Not Available No t Available amoxicillin 875 mg tablet TAKE 1 TABLET BY MOUTH TWICE A DAY FOR 7 DAYS active Not Available Not Available No t Available magnesium oxide 400 mg (241.3 mg magnesium) tablet TAKE 1 TABLET BY MOUTH EVERY DAY FOR HEADACHES active Not Available Not Available No t Available betamethaso ne valerate 0.1 % topical cream APPLY TWICE A DAY TO AFFECTED AREA FOR 7 DAYS. active Not Available Not Available No t Available phenazopyri dine 100 mg tablet TAKE 1 TABLET BY MOUTH THREE TIMES A DAY active Not Available Not Available No t Available benzonatate 100 mg capsule TAKE 1 CAPSULE BY MOUTH THREE TIMES A DAY NEEDED FOR COUGH active Not Available Not Available No t Available cephalexin 500 mg capsule TAKE 1 CAPSULE BY MOUTH EVERY 6 HOURS FOR 7 DAYS active Not Available Not Available No t Available clotrimazol e-betametha sone 1 %-0.05 % topical cream active Not Available Not Available Not Available prednisone 50 mg tablet TAKE 1 TABLET EVERY DAY BY ORAL ROUTE IN THE MORNING FOR 4 DAYS. active Not Available Not Available No t Available hydrocortis one 100 mg/60 mL enema INSERT 60 ML EVERY DAY BY RECTAL ROUTE FOR 30 DAYS. active Not Available Not Available No t Available omeprazole 20 mg capsule,del ayed release TAKE 1 CAPSULE BY MOUTH DAILY active Not Available Not Available No t Available Drysol Dab-O-Matic 20 % topical solution active Not Available Not Available Not Available ammonium lactate 12 % topical cream active Not Available Not Available Not Available mupirocin 2 % topical ointment APPLY 1 APPLICATI ON (TOPICAL) 3 TIMES PER DAY FOR 10 DAYS APPLY SPARINGLY active Not Available Not Available No t Available ergocalcife rol (vitamin D2) 1,250 mcg (50,000 unit) capsule TAKE ONE CAPSULE EVERY WEEK BY MOUTH FOR 42 DAYS active Not Available Not Available No t Available epinephrine 0.3 mg/0.3 mL injection, auto-inject or active Not Available Not Available Not Available cefuroxime axetil 500 mg tablet TAKE 1 TABLET BY MOUTH TWICE A DAY active Not Available Not Available No t Available methylpredn isolone 4 mg tablets in a dose pack active Not Available Not Available Not Available albuterol sulfate HFA 90 mcg/actuati on aerosol inhaler INHALE 2 PUFFS INTO LUNGS EVERY 4 HOURS NEEDED FOR WHEEZING active Not Available Not Available No t Available propranolol 20 mg tablet TAKE 1 TABLET BY MOUTH TWICE A DAY active Not Available Not Available No t Available hydrocortis one 2.5 % topical ointment active Not Available Not Available Not Available ondansetron 4 mg disintegrat ing tablet TAKE 1 TABLET BY MOUTH EVERY 6 HOURS NEEDED FOR NAUSIA OR VOMITING active Not Available Not Available No t Available cefdinir 300 mg capsule active Not Available Not Available Not Available fluticasone propionate 50 mcg/actuati on nasal spray,suspe nsion INSTILL 2 SPRAYS INTO EACH NOSTRIL ONCE DAILY FOR 30 DAYS active Not Available Not Available No t Available sertraline 50 mg tablet TAKE 1 AND A 1/2 TABLET (75 MG TOTAL) BY MOUTH DAILY active Not Available Not Available No t Available doxycycline hyclate 100 mg tablet active Not Available Not Available No t Available ipratropium bromide 21 mcg (0.03 %) nasal spray active Not Available Not Available Not Available loratadine 10 mg tablet active Not Available Not Available Not Available naproxen 500 mg tablet active Not Available Not Available Not Available amoxicillin 875 mg-potassiu m clavulanate 125 mg tablet TAKE 1 TABLET BY MOUTH TWICE A DAY FOR 10 DAYS active Not Available Not Available No t Available amoxicillin 500 mg-potassiu m clavulanate 125 mg tablet TAKE 1 TABLET BY MOUTH TWICE A DAY active Not Available Not Available No t Available clindamycin 1 % lotion active Not Available Not Available N ot Available cyclobenzap rine 5 mg tablet TAKE 1 TABLET BY MOUTH DAILY AT BEDTIME NEEDED, FOLLOW UP WITH NEUROLOGY FOR REFILLS active Not Available Not Available No t Available ciprofloxac in 0.3 %-dexametha sone 0.1 % ear drops,suspe nsion active Not Available Not Available Not Available bupropion HCl XL 150 mg 24 hr tablet, extended release TAKE 1 TABLET BY MOUTH EVERY DAY active Not Available Not Available No t Available Motion Sickness Relief (meclizine) 25 mg chewable tablet TAKE 1 TABLET (ORAL) 4 TIMES PER DAY NEEDED active Not Available Not Available No t Available nitrofurant oin monohydrate /macrocryst als 100 mg capsule TAKE 1 CAPSULE BY MOUTH TWICE A DAY active Not Available Not Available No t Available mesalamine 1,000 mg rectal suppository UNWRAP & INSERT 1 SUPPOSITO RY EVERY DAY BY RECTAL ROUTE FOR 90 DAYS. active Not Available Not Available No t Available Pain Relief Extra Strength (acetaminop hen) 500 mg tablet active Not Available Not Available Not Available mesalamine 1.2 gram tablet,jorge alberto yed release TAKE TWO TABLETS BY MOUTH EVERY DAY FOR 30 DAYS active Not Available Not Available No t Available cholecalcif nate (vitamin D3) 1,250 mcg (50,000 unit) capsule Take 1 capsule(s ) every week by oral route for 42 days. 2018 active Not Available Not Available Not Avai lable Athlete's Foot (terbinafin e) 1 % topical cream APPLY TO AFFECTED AREA TWICE A DAY FOR 2 WEEKS active Not Available Not Available No t Available Ferretts 325 mg (106 mg iron) tablet Take 1 tablet every day by oral route for 30 days. 12/26 completed Not Available Not Available Not Available Apriso 0.375 gram capsule,ext ended release 08/14 completed Not Available Not Available Not Available Gavilyte-C 240 gram-22.72 gram-6.72 gram-5.84 gram oral solution Take 4000 mL by oral route. active Not Available Not Available No t Available GaviLyte-G 236 gram-22.74 gram-6.74 gram-5.86 gram oral solution Take 4000 mL by oral route. 09/19 completed Not Available Not Available Not Available Zayra Hansen [facility] spacer active Not Available Not Available Not Available lidocaine 5 % topical ointment active Not Available Not Available Not Available budesonide DR-ER 9 mg tablet,jorge alberto yed and extended release TAKE 1 TABLET BY MOUTH EVERY DAY 2021 active Not Available Not Available Not Avai lable Entyvio 300 mg intravenous solution INFUSE 300MG INTRAVENO USLY EVERY 5 WEEKS 2024 active Not Available Not Available Not Avai lable Deblitane 0.35 mg tablet active Not Available Not Available Not Available Qvar RediHaler 40 mcg/actuati on HFA breath activated aerosol active Not Available Not Available Not Available Wixela Inhub 250 mcg-50 mcg/dose powder for inhalation INHALE 1 PUFF BY MOUTH TWICE A DAY active Not Available Not Available No t Available Fluarix Quad [id number] (PF) 60 mcg (15 mcg x 4)/0.5 mL IM syringe ADM 0.5ML IM UTD active Not Available Not Available No t Available Vitals None Recorded Social History Question Answer Notes LastModified by Organizat ion Details LastModified Time Tobacco Smoking Status Never Smoker 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 12/01/2018 Information n ot available 12/24/2018 Sex: Unknown Functional Status None recorded. Mental Status None recorded. Family History Relationship Description Onset Age of this Age Resolved Age Notes LastModified by Organization Details LastModified Time Father No current problems or disability Not available 01/24 14:04:46 Mother No current problems or disability [email or web address] Not available 01/24 14:04:46 Medical History No medical history recorded. Gynecological HistoryNo gynecological history recorded. Obstetrics History GPAL:G 0 P 0 0 0 0 Past Encounters Encounter ID Performer Location Encounter Start Date Encounter Closed Date Diagnosis/Indication Diagnosis SNOMED-CT Code Diagnosis ICD10 Code Diagnosis IMO Codes Diagnosis Note [id number] Melanie Parada MD [facility] Office [address] [place] [id number] 8 01/23/2017 18:23:31 01/23/2017 20:36:34 Ulcerative colitis 29282537 K51.90 Nausea 010438592 R11.0 Vitamin D deficiency 347 05228 E55.9 [id number] Melanie Parada MD [facility] [address] [place] [address] [id number] 8 02/20/2017 18:55:19 02/20/2017 20:21:48 Ulcerative colitis 16619753 K51.90 [id number] Melanie Parada MD [facility] [address] [place] [id number] 8 05/01/2017 18:58:46 05/01/2017 20:50:00 Ulcerative colitis 22770070 K51.90 [id number] Melanie Parada MD [facility] [address] [place] [address] [id number] 8 06/12/2017 14:49:04 06/12/2017 21:06:55 Ulcerative colitis 36759478 K51.90 [id number] MD Lucero Dietrich Office [address] [place] [address] 08/14/2017 17:16:16 08/14/2017 18:13:31 [id number] Melanie Parada MD [facility] [address] [place] [id number] 8 09/18/2017 18:55:46 09/18/2017 19:43:40 [id number] Melanie Parada MD [facility] [address] [place] [id number] 8 11/13/2017 16:18:02 11/20/2017 17:36:51 [id number] Melanie Parada MD [facility] [address] [place] [id number] 8 12/26/2017 16:04:28 12/26/2017 17:49:11 Gastro-esophageal reflux disease with esophagitis 380412612 K21.0 [id number] Melanie Parada MD [facility] [address] [place] [id number] 8 01/16/2018 15:47:15 01/16/2018 17:26:32 [id number] MD Lucero Dietrich [address] [place] [address] 06/12/2018 21:16:46 06/12/2018 21:19:49 [id number] Melanie Parada MD [facility] [address] [place] [id number] 8 08/14/2018 09:34:19 08/14/2018 10:24:11 Ulcerative colitis 41234682 K51.90 [id number] Melanie Parada MD [facility] [address] [address] 11/26/2018 18:03:16 11/26/2018 21:33:05 Ulcerative colitis 64906968 K51.90 [id number] Melanie Parada MD [facility] [address] [address] 8 04/29/2019 17:30:47 04/29/2019 20:22:28 Ulcerative colitis 36775796 K51.90 [id number] [facility] [address] [place] [address] 08/26/2019 18:10:39 09/23/2019 19:20:42 Ulcerative colitis 79341048 K51.90 Gastro-eso phageal reflux disease with esophagitis 227705670 K21.0 [id number] [facility] [address] [place] [address] 11/04/2019 12:36:26 11/04/2019 12:37:21 Ulcerative colitis 68418680 K51.90 Gastro-eso phageal reflux disease with esophagitis 631860324 K21.0 [id number] Melanie Parada MD [facility] Office [address] [place] [address] 05/20/2020 19:25:16 05/20/2020 19:25:52 Ulcerative colitis 42269614 K51.90 [id number] Melanie Parada MD [facility] [address] [place] [id number] 8 07/02/2021 22:42:48 07/02/2021 22:48:12 Gastroesophageal reflux disease without esophagitis 941001263 K21.9 Ulcerative colitis 01927 004 K51.90 [id number] [facility] [address] [place] [address] 09/01/2021 14:04:00 09/16/2021 16:43:47 Gastroesophageal reflux disease without esophagitis 418555503 K21.9 Ulcerative colitis 26921 004 K51.90 [id number] MD Lucero Dietrich [address] [place] [address] 09/13/2021 07:32:39 09/13/2021 07:35:21 Stricture of esophagus 31761755 K22.2 Ulcerative colitis 81265 004 K51.90 [id number] Melanie Parada MD [facility] [address] [address] 10/19/2021 12:42:21 10/19/2021 13:03:01 Ulcerative colitis 29055355 K51.90 Gastroesop hageal reflux disease without esophagitis 992480946 K21.9 [id number] MD Lucero Dietrich [address] [place] [address] 01/02/2022 11:02:15 01/02/2022 11:04:05 Ulcerative colitis 05547409 K51.90 [id number] Melanie Parada MD [facility] [address] [address] 02/08/2022 11:17:53 02/08/2022 11:20:41 Gastroesophageal reflux disease without esophagitis 003649792 K21.9 Ulcerative colitis 45165 004 K51.90 [id number] Melanie Parada MD [facility] [address], [address] [place] [address] 04/04/2022 11:12:02 04/04/2022 12:38:13 Abdominal pain 36276444 R10.9 Diarrhea 84480035 R19.7 Rectal hemorrhage 168229 02 K62.5 Ulcerative colitis 40192 004 K51.90 Gastroesop hageal reflux disease without esophagitis 277935828 K21.9 [id number] Melanie Parada MD [facility] [address], [address] [place] [address] 11/22/2022 10:53:20 11/22/2022 11:12:38 Ulcerative colitis 21830415 K51.90 Health Concerns Section Related Observation LastModified by Organization Detai ls LastModified Time None Recorded Concern Status LastModified by Organization Details LastModified Time None Recorded Advance Directives Directive None Recorded Payers Insurance Date Sequence Insurance Name Policy Number Policy Han Covered Member ID Han Member ID Guarantor Name 02/15/2025 1 [facility] [id number] Arely Hollingsworth Cutroni [id number] Arely Cutroni 02/13/2024 1 [facility] [id number] Boone Collier Cutroni [id number] Arely Cutroni 07/25/[address] [facility] Arely Cutroni [id number] Arely Cutroni 07/25/[address] [facility] PLAN (O) Arely Cutroni [id number] Arely Cutroni 11/06/2017 1 [facility]: [facility] [id number] Penny Cutbertha Orozco [id number] Arely Cutroni OBGyn Episode No OBEpisode recorded.
--- OUTSIDE RECORDS SUMMARY | 2025-04-09 03:56 | XMS_ITS | Encounter Summary ---
Author Organization [facility] Address [address] [place] [address] Care Team Providers Care Deicer Repairer Name Role Phone Amisha Holt DO Primary Care Provider [phone] Reason for Visit * Reason Comments Rehab Plan Of Care Order Encounter Details Date Type Department Care Team (Late st Contact Info) Description 12/17/2018 Orders Only [facility] [address] [place] [address] Hola Araya, PT [address] [place] [address] Social History Tobacco Use Types Packs/Day Years Used Date Smoking Tobacco: Never Smokeless Tobacco: Never Alcohol Use Standard Drinks/Week Comments Yes 0 (1 standard drink = 0.6 oz pur e alcohol) Comments No Sex and Gender Information Value Date Recorded Sex Assigned at Not on file Legal Sex Female 7:38 AM EDT Gender Identity Not on file Sexual Orientation Not on file documented as of this encounter Plan of Treatment Not on file documented as of this encounter Visit Diagnoses Diagnosis Bilateral thoracic back pain, unspecified chronicity documented in this encounter Care Teams Deicer Repairer Relationship Specialty Start Date End Date Amisha Holt DO [address] [place] [address] PCP - General 07/04/09 07/26/20 documented as of this encounter
--- OUTSIDE RECORDS SUMMARY | 2025-04-09 03:56 | XMS_ITS | Encounter Summary ---
Author Organization [facility] Address [address] [place] [address] Care Team Providers Care Manager Construction Name Role Phone Amisha Holt DO Primary Care Provider [phone] Encounter Details Date Type Department Care Team ([facility] st Contact Info) Description 08/26/2017 Orders Only [address] [facility] [address] [place] [address] Emerson Allen MD [address] [place] [address] Social History Tobacco Use Types Packs/Day Years [...] of this encounter Procedures * Due to [place] [employer] law, this organization might not be sharing negative HIV tests. Procedure Name Priority Date/Time Associated Diagnosis Comments HCG, TOTAL, QL Routine 08/26/2017 11:13 AM EDT Intractable episodic headache, unspecified headache type documented in this encounter Results * Due to [place] [employer] law, this organization might not be sharing negative HIV tests. * HCG, TOTAL, QL (08/26/2017 11:13 AM EDT) HCG, Qualitative (Screen) NEGATIVE [facility] Comment: Reference Range Non-: Negative : Positive 08/26/2017 11:1 3 AM EDT 08/26/2017 3:51 PM EDT Narrative Resulting Agency Comment [id number] us Emerson Allen MD LAB SAME DAY RESULT Final Result [facility] [address] [place] [address] documented in this encounter Visit Diagnoses Diagnosis Intractable episodic headache, unspecified headache type documented in this encounter Care Teams Manager Construction Relationship Specialty Start Date End Date Amisha Holt DO [address] [place] [address] PCP - General 07/04/09 07/26/20 documented as of this encounter
--- OUTSIDE RECORDS SUMMARY | 2025-04-09 03:56 | XMS_ITS | Clinical Summary ---
Author Organization [facility] Address [address] [place], [place] [address] Phone Care Team Providers Care Domestic Housekeeper Name Role Phone Carmen De La Vega NP Primary Care Provider Allergies Active Allergy Reactions Criticality Noted Date Comments [place] 08/01/2020 Gluten Protein 08/01/2020 Methyl Salicylate-Menthol 08/01/2020 Oxycodone-Acetaminophen 08/01/2020 Medications sertraline (ZOLOFT) 50 MG tablet Take 50 mg by mouth daily. Active traZODone (DESYREL) 50 MG tablet Take 50 mg by mouth nightly at bedtime. Active loratadine (CLARITIN) 10 mg tablet Take 10 mg by mouth daily. Active vedolizumab (ENTYVIO) 300 mg SolR injection Inject 300 mg into the vein once every 8 weeks. Active Social History Tobacco Use Types Packs/Day Years Used Date Smoking Tobacco: Never Smokeless Tobacco: Never Alcohol Use Standard Drinks/Week Comments Not Currently 0 (1 standard drink = 0.6 oz pur e alcohol) Education Answer Date Recorded Are you interested in more education? Not on sherry e 09/28/2022 Are you concerned about learning? Not on file 09/28/2022 No 09/28/2022 No 09/28/2022 Digital Access Answer Date Recorded No 10/30/2022 No 10/30/2022 Reliable internet access at home? Not on file 10/30/2022 Device with a working camera? Not on file Comments Unknown Sex and Gender Information Value Date Recorded Sex Assigned at Female 08/01/2020 12:18 PM EST Legal Sex Female 12:10 PM EST Gender Identity Female 08/01/2020 12:18 PM EST Sexual Orientation Not on file Last Filed Vital Signs Vital Sign Reading Time Taken Comments Blood Pressure 114/76 08/01/2020 12:16 PM EST Pulse 87 08/01/2020 12:16 PM EST Temperature 36.2 C (97.2 F) 08/01/2020 12:16 PM EST Respiratory Rate 19 08/01/2020 12:16 PM EST Oxygen Saturation 99% 08/01/2020 12:16 PM EST Inhaled Oxygen Concentration - - Weight 93 kg (205 lb) 08/01/2020 12:16 PM EST Height 149.9 cm (4' 11 ) 08/01/2020 12:16 PM EST Body Mass Index 41.4 08/01/2020 12:16 PM EST Plan of Treatment Not on file Medical Devices Not on file Insurance [place] [id number] [place] [address] CARE [place] [id number] [facility] [place] [id number] [facility] [employer] [facility] [place] [facility] [place] [facility] Care Teams Domestic Housekeeper Relationship Specialty Start Date End Date Carmen De La Vega NP [address] [place] [address] [place] [address] PCP - General Family Medicine 08/01/20 Additional Source Comments The information contained in this document represents components of the legal health record. It is not the complete legal health record.[facility]
--- OUTSIDE RECORDS SUMMARY | 2025-04-09 03:56 | XMS_ITS | Encounter Summary ---
Author Organization [facility] Address [address] [place] [address] Care Team Providers Care Block Trimmer Name Role Phone Di Amisha Fernandez DO Primary Care Provider [phone] Di Amisha Fernandez DO Primary Care Provider [phone] Di Amisha Fernandez DO Primary Care Provider [phone] Encounter Details Date Type Department Care Team (Late st Contact Info) Description 09/14/2008 Orders Only [facility] [address] [place] [phone] Kathe Peace MD [address] [place] [address] Social History Tobacco Use Types Packs/Day Years [...] of this encounter Procedures * Due to [place] [employer] law, this organization might not be sharing negative HIV tests. Procedure Name Priority Date/Time Associated Diagnosis Comments CULTURE, STREP SCREEN (GROUP A), THROAT Routine 09/14/2008 Acute Pharyngitis documented in this encounter Results * Due to [place] [employer] law, this organization might not be sharing negative HIV tests. * CULTURE, STREP SCREEN (GROUP A), THROAT (09/14/2008) Result(s) SEE TEXT Comment: SOURCE: THROAT NO GROUP A STREPTOCOCCI ISOLATED 09/14/2008 09/15/2008 12: 47 AM EDT Kathe Peace MD LABORATORY Final Result documented in this encounter Visit Diagnoses Diagnosis Acute pharyngitis documented in this encounter Care Teams Block Trimmer Relationship Specialty Start Date End Date Amisha Holt DO [address] [facility] [place] [address] PCP - General 07/04/09 07/26/20 Amisha Holt DO [address] [facility] [place] [address] PCP - General 12/01/08 07/03/09 Amisha Holt DO [address] [facility] [place] [address] PCP - General 03/20/07 11/30/08 documented as of this encounter
--- OUTSIDE RECORDS SUMMARY | 2025-04-09 03:56 | XMS_ITS | Encounter Summary ---
Author Organization [facility] Address [address] [place] [address] Care Team Providers Care Care Asst Name Role Phone Amisha Holt DO Primary Care Provider Encounter Details Date Type Department Care Team (Late st Contact Info) Description 02/24/2013 [facility] Only [facility] [address] [place] [address] Amisha Holt DO [address] [place] [id number] Social History Tobacco Use Types Packs/Day Years [...] of this encounter Procedures * Due to [place] state law, this organization might not be sharing negative HIV tests. Procedure Name Priority Date/Time Associated Diagnosis Comments CBC (H/H, RBC, INDICES,WBC, PLT) Routine 02/24/2013 12:36 PM EDT Screening for deficiency anemia THYROID STIMULATING HORMONE (TSH) WITH FREE T4 REFLEX, SERUM Routine 02/24/2013 12:36 PM EDT Weight gain Cold intolerance CHOLESTEROL, SERUM Routine 02/24/2013 12 :36 PM EDT Screening for hyperlipidemia documented in this encounter Results * Due to [place] state law, this organization might not be sharing negative HIV tests. * CHOLESTEROL, SERUM (02/24/2013 12:36 PM EDT) Cholesterol 141 125 - 170 mg/dL [facility] Comment:{CHOLESTEROL, TOTAL {[id number]) 02/24/2013 12:3 6 PM EDT 02/24/2013 8:37 PM EDT Narrative Resulting Agency Comment [id number] us Amisha Holt DO LABORATORY Final Result [facility] [address] [place] [address] * CBC (H/H, RBC, INDICES,WBC, PLT) (02/24/2013 12:36 PM EDT) WBC 6.0 4.5 - 13.0 Thousand/u L [facility] Comment:{WHITE BLOOD CELL CO UNT {[id number]) RBC 4.56 3.80 - 5.10 Million/uL [facility] Comment:{RED BLOOD CELL COUN T {[id number]) Hemoglobin 13.6 11.5 - 15.3 g/dL [facility] Comment:{HEMOGLOBIN {[id number]) Hematocrit 41.7 34.0 - 46.0 % [facility] Comment:{HEMATOCRIT {[id number]) MCV 91.3 78.0 - 98.0 fL [facility] Comment:{MCV {[id number]) MCH 29.8 25.0 - 35.0 pg [facility] Comment:{MCH {[id number]) MCHC 32.6 31.0 - 36.0 g/dL [facility] Comment:{MCHC {[id number]) RDW 12.8 11.0 - 15.0 % [facility] Comment:{RDW {[id number]) PLT 251 140 - 400 Thousand/u L [facility] Comment:{PLATELET COUNT {[id number]) 02/24/2013 12:3 6 PM EDT 02/24/2013 8:37 PM EDT Narrative Resulting Agency Comment [id number] us Amisha Holt DO LAB SAME DAY RESULT Final Resu lt Performing Organization Address City/[facility] Co de Phone Number [facility] [address] [place] [address] * THYROID STIMULATING HORMONE (TSH) WITH FREE T4 REFLEX, SERUM (02/24/2013 12:36 PM EDT) TSH 2.18 mIU/L [facility] Comment: {TSH W/REFLEX TO FT4 {[id number]) Reference Range 1-19 Years 0.50-4.30 Ranges First trimester 0.26-2.66 Second trimester 0.55-2.73 Third trimester 0.43-2.91 02/24/2013 12:3 6 PM EDT 02/24/2013 8:37 PM EDT Narrative Resulting Agency Comment [id number] us Amisha Holt DO LABORATORY Final Result Performing Organization Address [facility] Co de Phone Number [facility] [address] [place] [address] documented in this encounter Visit Diagnoses Diagnosis Weight gain Abnormal weight gain Cold intolerance Other general symptoms Screening for deficiency anemia Screening for other and unspecified deficiency anemia Screening for hyperlipidemia Screening for lipoid disorders documented in this encounter Care Teams Care Asst Relationship Specialty Start Date End Date Amisha Holt DO [address] [place] [address] PCP - General 07/04/09 07/26/20 documented as of this encounter
--- OUTSIDE RECORDS SUMMARY | 2025-04-09 03:56 | XMS_ITS | Encounter Summary ---
Author Organization [facility] Address [address] [place] [address] Care Team Providers Care Pantry Cook Name Role Phone Di Amisha Fernandez DO Primary Care Provider [phone] Di Amisha Fernandez DO Primary Care Provider Encounter Details Date Type Department Care Team (Late st Contact Info) Description 03/23/2009 Orders Only [facility] [address] [place] [address] Amisha Holt DO [address] [place] [address] Social History Tobacco Use Types Packs/Day Years [...] encounter Procedures * Due to [place] [employer] law, this organization might not be sharing negative HIV tests. Procedure Name Priority Date/Time Associated Diagnosis Comments CULTURE, STREP SCREEN (GROUP A), THROAT Routine 03/23/2009 Acute Pharyngitis documented in this encounter Results * Due to [place] [employer] law, this organization might not be sharing negative HIV tests. * CULTURE, STREP SCREEN (GROUP A), THROAT (03/23/2009) Result(s) SEE TEXT [facility] Comment: SOURCE: THROAT NO GROUP A STREPTOCOCCI ISOLATED 03/23/2009 03/23/2009 7:2 3 PM EDT us Amisha Holt DO LABORATORY Final Result Performing Organization Address City/State/[facility] Co de Phone Number [facility] [address] [place] [address] documented in this encounter Visit Diagnoses Diagnosis Acute pharyngitis documented in this encounter Care Teams Pantry Cook Relationship Specialty Start Date End Date Amisha Holt DO [address] [place] [address] PCP - General 07/04/09 07/26/20 Amisha Holt DO [address] [place] [address] PCP - General 12/01/08 07/03/09 documented as of this encounter
--- OUTSIDE RECORDS SUMMARY | 2025-04-09 03:56 | XMS_ITS | Encounter Summary ---
Author Organization [facility] Address [address] [place] [address] Care Team Providers Care Owner Manager Name Role Phone Amisha Holt DO Primary Care Provider Encounter Details Date Type Department Care Team (Late st Contact Info) Description 05/23/2018 [facility] Only [facility] [address] [place] [address] Amisha Holt DO [address] [place] [id number] Social History Tobacco Use Types Packs/Day Years [...] of this encounter Procedures * Due to [place] state law, this organization might not be sharing negative HIV tests. Procedure Name Priority Date/Time Associated Diagnosis Comments LIPID PROFILE, NON-FASTING, W/ DIRECT LDL, W/O TRIGS Routine 05/23/2018 11:08 AM EST Need for lipid screening CHLAMYDIA TRACHOMATIS/N. GONORRHOEAE (GC) RNA, TMA (URINE) Routine 05/23/2018 11:08 AM EST Encounter for screening for infections with predominantly sexual mode of transmission ALANINE AMINOTRANSFERASE (ALT), SERUM Routine 05/23/2018 11:08 AM EST Obesity, unspecified classification, unspecified obesity type, unspecified whether serious comorbidity present ASPARTATE AMINOTRANSFERASE (AST), SERUM Routine 05/23/2018 11:08 AM EST Obesity, unspecified classification, unspecified obesity type, unspecified whether serious comorbidity present HEMOGLOBIN A1C Routine 05/23/2018 11:08 AM EST Screening for diabetes mellitus documented in this encounter Results * Due to [place] state law, this organization might not be sharing negative HIV tests. * HEMOGLOBIN A1C (05/23/2018 11:08 AM EST) Hemoglobin A1C 4.3 <5.7 % of total Hgb [facility] Comment: For the purpose of screening for the presence of diabetes: <5.7% Consistent with the absence of diabetes 5.7-6.4% Consistent with increased risk for diabetes (prediabetes) > or =6.5% Consistent with diabetes This assay result is consistent with a decreased risk of diabetes. Currently, no consensus exists regarding use of hemoglobin A1c for diagnosis of diabetes in children. According to [place] Diabetes Association (ADA) guidelines, hemoglobin A1c <7.0% represents optimal control in non- diabetic patients. Different metrics may apply to specific patient populations. Standards of Medical Care in Diabetes(ADA). Estimated Average Glucose 76 mg/dL (calc) [facility] 05/23/2018 11:0 8 AM EST 05/24/2018 12:09 AM EST Narrative Resulting Agency Comment [id number] Amisha Holt DO LABORATORY Final Result [facility] [address] [place] [address] * LIPID PROFILE, NON-FASTING, W/ DIRECT LDL, W/O TRIGS (05/23/2018 11:08 AM EST) Cholesterol 145 <200 mg/dL [facility] HDL Cholesterol 67 >50 mg/dL [facility] CHOL/HDL Ratio 2.2 <5.0 (calc) [facility] Cholesterol Non-HDL 78 <130 mg/dL (calc) [facility] Comment: For patients with diabetes plus 1 major ASCVD risk factor, treating to a non-HDL-C goal of <100 mg/dL (LDL-C of <70 mg/dL) is considered a therapeutic option. LDL, Direct Measure 70 <100 mg/dL [facility] Comment: Greatly elevated Triglycerides values (>1200 mg/dL) interfere with the dLDL assay. As no Triglycerides testing was ordered, interpret results with caution. Desirable range <100 mg/dL for primary prevention; <70 mg/dL for patients with CHD or diabetic patients with > or = 2 CHD risk factors. 05/23/2018 11:0 8 AM EST 05/24/2018 12:09 AM EST Narrative Resulting Agency Comment [id number] us Amisha Di Rebecca DO LABORATORY Final Result Performing Organization Address [facility] de Phone Number [facility] [address] [place] [address] * (ABNORMAL) ALANINE AMINOTRANSFERASE (ALT), SERUM (05/23/2018 11:08 AM EST) ALT (SGPT) 38(H) 6 - 29 U/L [facility] 05/23/2018 11:0 8 AM EST 05/24/2018 12:09 AM EST Narrative Resulting Agency Comment [id number] Crowdfundere Di Rebecca DO LAB SAME DAY RESULT Final Resu lt Performing Organization Address [facility] de Phone Number [facility] [address] [place] [address] * ASPARTATE AMINOTRANSFERASE (AST), SERUM (05/23/2018 11:08 AM EST) AST (SGOT) 24 10 - 30 U/L [facility] 05/23/2018 11:0 8 AM EST 05/24/2018 12:09 AM EST Narrative Resulting Agency Comment [id number] us Amisha Di Rebecca DO LAB SAME DAY RESULT Final Resu lt [facility] [address] [place] [address] * CHLAMYDIA TRACHOMATIS/N. GONORRHOEAE (GC) RNA, TMA (URINE) (05/23/2018 11:08 AM EST) Chlamydia trachomatis rRNA NOT DETECTED NOT DETECTED [facility] Neisseria Gonorrhoeae rRNA NOT DETECTED NOT DETECTED [facility] COMMENT SEE NOTE [facility] Comment: This test was performed using the APTIMA COMBO2 Assay ([employer] The analytical performance characteristics of this assay, when used to test SurePath specimens have been determined by [employer]. 05/23/2018 11:0 8 AM EST 05/24/2018 12:09 AM EST Narrative Resulting Agency Comment [id number] us Amisha Holt DO LABORATORY Final Result Performing Organization Address City/[facility] Co de Phone Number [facility] [address] [place] [address] documented in this encounter Visit Diagnoses Diagnosis Encounter for screening for infections with predominantly sexual mode of transmission Screening examination for venereal disease Obesity, unspecified classification, unspecified obesity type, unspecified whether serious comorbidity present Need for lipid screening Screening for lipoid disorders Screening for diabetes mellitus documented in this encounter Care Teams Owner Manager Relationship Specialty Start Date End Date Amisha Holt DO [address] [place] [address] PCP - General 07/04/09 07/26/20 documented as of this encounter
--- OUTSIDE RECORDS SUMMARY | 2025-04-09 03:56 | XMS_ITS | Encounter Summary ---
Author Organization [facility] Address [address] [place] [address] Care Team Providers Care Legal Entity Controller Name Role Phone Amisha Holt DO Primary Care Provider [phone] Encounter Details Date Type Department Care Team ([facility] st Contact Info) Description 11/06/2017 Orders Only [facility] Neurology [address] [facility] [address] [place] [address] Emerson Allen MD [address] [place] [address] Social History Tobacco Use Types Packs/Day Years [...] of this encounter Procedures * Due to [place] state law, this organization might not be sharing negative HIV tests. Procedure Name Priority Date/Time Associated Diagnosis Comments ACTIVATED PARTIAL THROMBOPLASTIN TIME (APTT), PLASMA Routine 11/06/2017 2:11 PM EDT Other headache syndrome PROTHROMBIN TIME (PT) (INR), BLOOD Routine 11/06/2017 2:11 PM EDT Other headache syndrome CBC INCLUDES DIFFERENTIAL AND PLATELET COUNT Routine 11/06/2017 2:11 PM EDT Other headache syndrome documented in this encounter Results * Due to [place] state law, this organization might not be sharing negative HIV tests. * ACTIVATED PARTIAL THROMBOPLASTIN TIME (APTT), PLASMA (11/06/2017 2:11 PM EDT) Thromboplastin Time 27 22 - 34 sec [facility] Comment: This test has not been validated for monitoring unfractionated heparin therapy. For testing that is validated for this type of therapy, please refer to the Heparin Anti-Xa assay (test code 87246). For additional information, please refer to http://[employer]/faq/VPM614 (This link is being provided for informational/educational purposes only.) 11/06/2017 2:11 PM EDT 11/06/2017 6:55 PM EDT Narrative Resulting Agency Comment [id number] Emerson Allen MD LAB SAME DAY RESULT Final Result Performing Organization Address [facility] Co de Phone Number [facility] [address] [place] [address] * PROTHROMBIN TIME (PT) (INR), BLOOD (11/06/2017 2:11 PM EDT) INR 0.9 [facility] Comment: Reference Range 0.9-1.1 Moderate-intensity Warfarin Therapy 2.0-3.0 Higher-intensity Warfarin Therapy 3.0-4.0 PT 9.7 9.0 - 11.5 sec [facility] Comment: For more information on this test, go to: http://[employer]faq/BLG979 11/06/2017 2:11 PM EDT 11/06/2017 6:55 PM EDT Narrative Resulting Agency Comment [id number] Emerson Allen MD LAB SAME DAY RESULT Final Result Performing Organization Address [facility] Co de Phone Number [facility] [address] [place] [address] * (ABNORMAL) CBC INCLUDES DIFFERENTIAL AND PLATELET COUNT (11/06/2017 2:11 PM EDT) WBC 5.8 3.8 - 10.8 Thousand/u L [facility] RBC 4.06 3.80 - 5.10 Million/uL [facility] Hemoglobin 13.0 11.7 - 15.5 g/dL [facility] Hematocrit 38.8 35.0 - 45.0 % [facility] MCV 95.6 80.0 - 100.0 fL [facility] MCH 32.2 27.0 - 33.0 pg [facility] MCHC 33.6 32.0 - 36.0 g/dL [facility] RDW 13.4 11.0 - 15.0 % [facility] PLT 304 140 - 400 Thousand/u L [facility] MPV 7.4(L) 7.5 - 12.5 fL [facility] Neutrophils # 4118 1500 - 7800 cells/uL [facility] Lymphocytes # 1114 850 - 3900 cells/uL [facility] Monocytes # 464 200 - 950 cells/uL [facility] Eosinophils # 70 15 - 500 cells/uL [facility] Basophils # 35 0 - 200 cells/uL [facility] Neutrophils % 71.0 % [facility] Lymphocytes % 19.2 % [facility] Monocytes % 8.0 % [facility] Eosinophils % 1.2 % [facility] Basophils % 0.6 % [facility] 11/06/2017 2:11 PM EDT 11/06/2017 6:55 PM EDT Narrative Resulting Agency Comment [id number] Emerson Allen MD LAB SAME DAY RESULT Final Result Performing Organization Address City/State/[facility] Co de Phone Number [facility] [address] [place] [address] documented in this encounter Visit Diagnoses Diagnosis Other headache syndrome documented in this encounter Care Teams Legal Entity Controller Relationship Specialty Start Date End Date Amisha Holt DO [address] [place] [address] PCP - General 07/04/09 07/26/20 documented as of this encounter
--- OUTSIDE RECORDS SUMMARY | 2025-04-09 03:56 | XMS_ITS | Encounter Summary ---
Author Organization [facility] Address [address] [place] [address] Care Team Providers Care Shell Sorter Name Role Phone Amisha Holt DO Primary Care Provider Encounter Details Date Type Department Care Team (Late st Contact Info) Description 11/02/2019 Orders Only [facility] [address] [place] [address] Amisha Holt DO [address] [place] [address] Social History Tobacco Use Types Packs/Day Years Used Date Smoking Tobacco: Never Smokeless Tobacco: Never Alcohol Use Standard Drinks/Week Comments Yes 0 (1 standard drink = 0.6 oz pur e alcohol) Comments No Sex and Gender Information Value Date Recorded Sex Assigned at Not on file Legal Sex Female 7:38 AM EDT Gender Identity Not on file Sexual Orientation Not on file COVID-19 Exposure Response Date Recorded In the last month, have you been in contact with someone who was confirmed or suspected to have Coronavirus / COVID-19? No / Unsure 11/02/2019 10:40 AM EDT documented as of this encounter Progress Notes * Amisha Holt DO - 11/02/2019 5:02 PM EDT Please let Arely know that her UCx was neg. She can stop the abx. Her sxs are likely due to the ovarian cyst and will resolve once the cyst resolves (usually with her next period). documented in this encounter Plan of Treatment Not on file documented as of this encounter Procedures * Due to [place] law, this organization might not be sharing negative HIV tests. Procedure Name Priority Date/Time Associated Diagnosis Comments CULTURE, URINE, ROUTINE Routine 11/02/2019 5:02 PM EDT Difficult or painful urination URINALYSIS, COMPLETE INCLUDES DIPSTICK AND MICROSCOPIC Routine 11/02/2019 5:02 PM EDT Difficult or painful urination documented in this encounter Results * Due to [place] [employer] law, this organization might not be sharing negative HIV tests. * CULTURE, URINE, ROUTINE (11/02/2019 5:02 PM EDT) Bacteria culture (Urine) SEE NOTE [facility] Comment: CULTURE, URINE, ROUTINE Micro Number: [id number] Test Status: Final Specimen Source: URINE Specimen Quality: Adequate Result: Multiple organisms present, each less than 10,000 CFU/mL. These organisms, commonly found on external and internal genitalia, are considered to be colonizers. No further testing performed. 11/02/2019 5:02 PM EDT 11/03/2019 2:01 AM EDT Narrative Resulting Agency Comment [id number] Amisha Holt DO LABORATORY Final Result Performing Organization Address City/State/[facility] Co de Phone Number [facility] [address] [place] [address] * (ABNORMAL) URINALYSIS, COMPLETE INCLUDES DIPSTICK AND MICROSCOPIC (11/02/2019 5:02 PM EDT) Color (Urine) YELLOW YELLOW [facility] Appearance (Urine) CLOUDY(A) CLEAR [facility] Specific gravity (Urine) 1.018 1.001 - 1.035 [facility] pH (Urine) 7.5 5.0 - 8.0 [facility] Glucose (Urine) NEGATIVE NEGATIVE [facility] Bilirubin (Urine) NEGATIVE NEGATIVE [facility] Ketones (Urine) NEGATIVE NEGATIVE [facility] Hemoglobin (Urine) NEGATIVE NEGATIVE [facility] Protein (Urine) NEGATIVE NEGATIVE [facility] Nitrite (Urine) NEGATIVE NEGATIVE [facility] Leukocyte esterase (Urine) 1+(A) NEGATIVE [facility] WBC (Urine) 0-5 < OR = 5 /HPF [facility] RBC (Urine Sed) NONE SEEN < OR = 2 /HPF [facility] Epithelial cells.squamous (Urine sed) 0-5 < OR = 5 /HPF [facility] Bacteria (Urine) MODERATE(A) NONE SEEN /HPF [facility] Hyaline casts (Urine sed) NONE SEEN NONE SEEN /LPF [facility] 11/02/2019 5:02 PM EDT 11/03/2019 2:01 AM EDT Narrative Resulting Agency Comment [id number] Amisha Holt DO LAB SAME DAY RESULT Final Resu lt Performing Organization Address City/State/[facility] Co de Phone Number [facility] [address] [place] [address] documented in this encounter Visit Diagnoses Diagnosis Difficult or painful urination Dysuria documented in this encounter Care Teams Shell Sorter Relationship Specialty Start Date End Date Amisha Holt DO [address] [place] [address] PCP - General 07/04/09 07/26/20 documented as of this encounter
--- OUTSIDE RECORDS SUMMARY | 2025-04-09 03:56 | XMS_ITS | Encounter Summary ---
Author Organization [facility] Address [address] [place] [address] Care Team Providers Care Train Gateman Name Role Phone Amisha Holt DO Primary Care Provider [phone] Encounter Details Date Type Department Care Team ([facility] st Contact Info) Description 08/15/2017 Telephone 300 [facility] Magnetic Resonance Imaging [address] [place] [phone] Emerson Allen MD [address] [place] [address] Social History Tobacco Use Types Packs/Day Years [...] documented as of this encounter Visit Diagnoses Not on filedocumented in this encounter Care Teams Train Gateman Relationship Specialty Start Date End Date Amisha Holt DO [address] [place] [address] PCP - General 07/04/09 07/26/20 documented as of this encounter
--- OUTSIDE RECORDS SUMMARY | 2025-04-09 03:56 | XMS_ITS | Clinical Summary ---
Author Organization [facility] Address [address] [place] [address] Care Team Providers Care Transitional Nurse Name Role Phone Unavailable Primary Care Provider Unavailabl e Allergies No known active allergies Medications Mesalamine (LIALDA) 1.2 G Tablet Delayed Response 2 TO 4 TABLETS ONCE DAILY WITH FOOD Active Ergocalciferol 87480 UNITS Cap 1 CAPSULE WEEKLY Active Omeprazole 20 MG CAPSULE DELAYED RELEASE None Entered 8 Active Vedolizumab (ENTYVIO) 300 MG Recon Soln 300 MG EVERY 8 WEEKS Active Norethindrone, Contraceptive, (DEBLITANE) 0.35 MG Tab Deblitane 0.35 mg tablet Active Folic Acid 800 MCG Tab 2 TABLETS DAILY Active ALBUTEROL SULFATE (PROAIR HFA) 108 (90 Base) MCG/ACT inhalerIndicati ons:Bronchospas m Inhale two puffs every 4 (four) hours if needed for wheezing 1 Inhaler 0 Active acetaZOLAMIDE (DIAMOX) 250 MG tablet One tablet daily 30 tablet 5 0 Active Active Problems Problem Noted Date Diagnosed Date Migraine with aura 05/23/2018 Overview (06/17/2018): Hx of spinal tap age 1 1/2 yo and age 18. (borderline high spinal fluid) Ulcerative colitis 11/13/2017 Overview (07/04/2018): 2 colonoscopies (16, 20) Dr. Parada Did not tolerate Humira. Started on Entyvio. Ulcerative proctitis 03/30/2016 General counseling and advice for contraceptive management 05/04/2010 Overview (06/17/2018): 06/17/18: Pt opts for POP. Not a candidate for combination method with migraine with aura. Pt aware this will not regulate menses necessarily. Was given option of cyclical provera but preferred POP. Return in 3 months for f/u. WCC (well child check) 08/15/2009 Overview (12/28/2009): Sib: Geo Resolved Problems Problem Noted Date Diagnosed Date Resolved Date Bilateral thoracic back pain - Rehab PT 12/13/2018 08/06/2019 Motor tic disorder 09/26/2011 7 Obesity without serious maribell rbidity with body mass index (BMI) in 95th to 98th percentile for age in pediatric patient 04/12/2011 05/23/2018 Overview (03/07/2024): [place] disease 08/15/200906/2016 Immunizations Immunization Administration Dates Next Due COVID-19, mRNA (Pfizer Pre F all 2022) Monovalent, 30 mcg/0.3 ml 03/24/2021,09/02/2020,08/12/2020 Covid-19, mRNA (Pfizer Pre F all 2022) Monovalent, 30 mcg/0.3 ml anshul-sucrose (12+) 09/22/2021 DTaP 01/27/2002, 0,1998,05/12,1998 Fc Fluarix Quad, Prsrv Fr, 3yrs &> 02/18/2013 HIB (PRP-T) 02/27/1999, 9,1998,02/21 HPV4 (Gardasil 4) 11/06/2012, 1,11/23/2009,08/15 Hep A 11/06/2012 Hep A (pedi) 11/10/2014 Hep B (pedi) 1998,1998,1998 IPV 01/27/2002,07/13/1999 Influenza nasal,unspecified formulation 04/10/2011 Influenza,injectable,quad,Prsrv Fr 03/19/2020 MMR 01/27/2002,02/27/1999 Meningococcal ACWY (Menactra) 11/10/2014, 010 OPV, Trivalent (Admin Before 09/02/2015) 8,1998 PPD/TST (Tuberculin Skin Test) 01/20/2018 Tdap(Boostrix) 08/15/2009 Varicella 05/19/2008,02/27/1999 Family History Medical History Relation Name Comments No Known or Significant Medical History Father Psych/Mental Health Maternal grandfather Alzhiemers Asthma Maternal grandmother Diabetes Maternal grandmother Heart Disorder Maternal grandmother Allergies (med/food/envrnmt) Mother Asthma Mother Lipid/Cholesterol Abnormality Mother Cancer - Prostate Paternal grandfather Relation Name Status Comments Father Alive Maternal grandfather Maternal grandmother Mother Alive Paternal grandfather Alive Paternal grandmother Alive Social History Tobacco Use Types Packs/Day Years Used Date Smoking Tobacco: Never Smokeless Tobacco: Never Alcohol Use Standard Drinks/Week Comments Yes 0 (1 standard drink = 0.6 oz pur e alcohol) Intimate Partner Violence Answer Date R ecorded Fear of Current or Ex-Partner Not on file Emotionally Abused Not on file 01/21/2023 Physically Abused Not on file 01/21/2023 Sexually Abused Not on file 01/21/2023 Feel Safe at Home Not on file 01/21/2023 Comments No Sex and Gender Information Value Date Recorded Sex Assigned at Not on file Legal Sex Female 7:38 AM EDT Gender Identity Not on file Sexual Orientation Not on file Last Filed Vital Signs Vital Sign Reading Time Taken Comments Blood Pressure 104/74 11/02/2019 2:20 PM EDT Pulse 88 11/02/2019 2:20 PM EDT Temperature 36.4 C (97.6 F) 11/02/2019 2:20 PM EDT Respiratory Rate 19 09/01/2019 9:31 AM EDT Oxygen Saturation 99% 06/12/2019 2:36 PM EST Inhaled Oxygen Concentration - - Weight 103 kg (227 lb) 11/02/2019 2:20 PM EDT Height 149.9 cm (4' 11 ) 09/19/2018 3:38 PM EDT Body Mass Index 45.85 09/19/2018 3:38 PM EDT Plan of Treatment Health Maintenance Due Date Last Done Comments Hepatitis C Screening 1998 Pap Smear 2014 Pneumococcal (1 of 2 - PCV) 2017 Zoster (Shingrix) (1 of 2) 2017 05/19/2008, DTaP/Tdap/Td (7 - Td or Tdap) 08/16/2019, 01/27/2002, 07/13/1999, Additional history exists COVID-19 Vaccine (2024- 6 season) 2025 09/22/2021, 03/24/2021, 09/02/2020, Additional history exists Influenza (#1) 2025 03/19/2020, 02/01, 04/10/2011 Hep B Completed 1998, 02/02, 1998 Hib Completed 02/27/1999, 01/1999, 1998, Additional history exists HPV Vaccine Completed 11/06/2012, 01/2011, 11/23/2009, Additional history exists Hep A Completed 11/10/2014, 11/06/2012 Meningococcal ACWY Completed 11/10/2014, 08/15/2009 Colonoscopy Discontinued 08/26/2017, 03/26/2016 PPD Discontinued 01/20/2018 LDL Cholesterol Discontinued 05/23/2018, 06/19/2016 Physical Discontinued 05/23/2018, 06/2016, 11/23/2015, Additional history exists Chlamydia Discontinued 12/15/2018, 05/04, 01/01/2017 Eye/Retina Exam Discontinued 01/29/2019, 01/02, 01/29/2019, Additional history exists Chest Imaging Discontinued 06/12/2019, 01/01, 08/24/2017, Additional history exists Procedures * Due to [place] state law, this organization might not be sharing negative HIV tests. Procedure Name Priority Date/Time Associated Diagnosis Comments XRAY CHEST, 2 VIEWS, PA & LATERAL FC Routine 06/12/2019 2:26 PM EST Cough CHLAMYDIA TRACHOMATIS/N. GONORRHOEAE, DNA, SDA, OTV Routine 12/15/2018 5:04 PM EDT LIPID PROFILE, NON-FASTING, W/ DIRECT LDL, W/O TRIGS Routine 05/23/2018 11:08 AM EST Need for lipid screening COLONOSCOPY 08/26/2017 from Last 3 Months or Most Recently Relevant to Health Maintenance Results * Due to [place] state law, this organization might not be sharing negative HIV tests. * XRAY CHEST, 2 VIEWS, PA & LATERAL FC (06/12/2019 2:26 PM EST) Anatomical Region Laterality Modality CHEST Radiographic Lottie ging 06/14/2019 11:0 9 AM EST Narrative 06/14/2019 11:09 AM EST EXAM: CHEST X-RAY, PA AND LATERAL: COMPARISON: CR - XRAY CHEST 2 VIEWS PA - 08/24/2017 11:32 AM EDT FINDINGS: The cardiomediastinal silhouette is unremarkable. The lungs are well aerated and clear. No mass, infiltrate or atelectasis is apparent. No pleural effusion is suspected. The osseous structures are unremarkable. IMPRESSION: No active cardiopulmonary disease demonstrated. Procedure Note Brody Laughlin MD - 06/14/2019 EXAM: CHEST X-RAY, PA AND LATERAL: COMPARISON: CR - XRAY CHEST 2 VIEWS PA - 08/24/2017 11:32 AM EDT FINDINGS: The cardiomediastinal silhouette is unremarkable. The lungs are well aerated and clear. No mass, infiltrate or atelectasisis apparent. No pleural effusion is suspected. The osseous structures are unremarkable. IMPRESSION: No active cardiopulmonary disease demonstrated. Ksihan Rodriguez MD IMG XRAY NO CONTRAST ORDERABLES Final Result * CHLAMYDIA TRACHOMATIS/N. GONORRHOEAE, DNA, SDA, OTV (12/15/2018 5:04 PM EDT) CHLAMYDIA TRACHOMATIS DNA Negative Negative [facility] GC BY NUCLEIC ACID AMP Negative Negative [facility] 12/15/2018 5:04 PM EDT 12/15/2018 5:04 PM EDT Emergency Rm Provider [facility] LABORATORY Final Result [facility] [address] [place] [address] * LIPID PROFILE, NON-FASTING, W/ DIRECT LDL, [...] 12:09 AM EST Narrative Resulting Agency Comment [id number] Amisha Holt DO LABORATORY Final Result [facility] [address] [place] [address] * COLONOSCOPY (08/26/2017) Narrative Procedure Note Melanie Parada MD - 08/26/2017 10:36 AM EDT [facility] Department of Endoscopy [address] [place] [address], [address] Name: ARELY MINOR : [birth year] Date of Service: Order Number: Location: [facility] Acct Number: [id number] Report Number: [id number] Service: REG REF/ Requesting Physician: ____ ---Signed--- Category: Exam: Signs/Symptoms: [address], [address] COLONOSCOPY PROCEDURE REPORT EXAM DATE: 08/26/2017 PATIENT NAME: Arely Minor MR #: [id number] BIRTHDATE: 2000 ASA CLASS: Class II ATTENDING: Melanie Parada MD STATUS: Outpatient ASSISTING MD: INDICATIONS: The patient is a 17 yr old female here for a colonoscopydue to Ulcerative colitis to assess disease extent and severity and perform surveillance biopsies for dysplasia, if indicated and rectal bleeding. PROCEDURE PERFORMED: Colonoscopy with biopsy MEDICATIONS: midazolam (Versed) 5 mg IV and Fentanyl 100 mcg IV ESTIMATED BLOOD LOSS: None CONSENT: The nature of the procedure, the indications, the alternativesand the risks including but not limited to bleeding, perforation, discomfort, aspiration, allergic reaction, missed polyp or lesion, incompleteexamination, need for urgent surgical intervention, and or (expected to be rare)were explained to the patient who appeared to understand and so indicated.An opportunity for questions was provided and an informed consent wasobtained. DESCRIPTION OF PROCEDURE: During pre-op preparation period all mechanical medical equipment waschecked for proper function. Hand hygiene and appropriate measures forinfection prevention was taken. After the risks, benefits and alternatives of the procedure were thoroughly explained, Informed consent was verified,confirmed and timeout was successfully executed by the treatment team. A digitalexam revealed no abnormalities of the rectum The [id number] endoscope wasintroduced through the anus and advanced to the cecum, which was identified by boththe appendix and ileocecal valve. The prep quality was fair. The instrumentwas then slowly withdrawn as the colon was fully examined. COLON FINDINGS: An area of moderately hemorrhagic mucosa was found inthe sigmoid colon and rectum. Multiple biopsies were performed using coldforceps. Non-bleeding mucosal ulceration was present at the cecum andappendiceal orifice. Multiple biopsies were performed using cold forceps. Two flatand elevated (IIa) polyps measuring 1 mm in size were found in thetransverse colon. A biopsy was performed using cold forceps. The scope wasthen completely withdrawn from the patient and the procedure terminated. ADVERSE EVENTS: There were no complications. IMPRESSIONS: 1. An area of hemorrhagic mucosa was found in thesigmoid colon and rectum; multiple biopsies were performed using cold forceps . 2. Non-bleeding mucosal ulceration at the cecum and appendicealorifice; multiple biopsies were performed using cold forceps . 3. Two polyps were found in the transverse colon; biopsy was performedusing cold forceps . SPECIMENS TAKEN YES RECOMMEndation Contine meds as before LFTs in 2 weeks RECALL: Melanie Parada MD eSigned: Melanie Parada MD 08/26/2017 10:40:15 AM cc: Amisha Escalona M.D. PATIENT NAME: Arely Mnior MR#: [id number] QLLE-SKILZY-[id number] Pentax endoPRO iQ actim [id number] Interpreting Physician(s): Melanie Parada 08/26/17 1036 Approved Electronically By/Date: Melanie Parada 08/26/17 1040 Melanie Parada MD PROCEDURES Final Resu lt from Last 3 Months or Most Recently Relevant to Health Maintenance Insurance [employer] FEE FOR SERVICE PPO
--- OUTSIDE RECORDS SUMMARY | 2025-04-09 03:56 | XMS_ITS | Encounter Summary ---
Author Organization [facility] Address [address] [place] [address] Care Team Providers Care Locksmith Name Role Phone Amisha Holt DO Primary Care Provider Encounter Details Date Type Department Care Team (Late st Contact Info) Description 06/19/2016 [facility] Only [facility] [address] [place] [address] Amisha Holt DO [address] [place] [id number] Social History Tobacco Use Types Packs/Day Years [...] of this encounter Procedures * Due to [place] state law, this organization might not be sharing negative HIV tests. Procedure Name Priority Date/Time Associated Diagnosis Comments LIPID PROFILE + FASTING GLUCOSE Routine 06/19/2016 3:41 PM EST Need for lipid screening ALANINE AMINOTRANSFERASE (ALT), SERUM Routine 06/19/2016 3:41 PM EST Obesity ASPARTATE AMINOTRANSFERASE (AST), SERUM Routine 06/19/2016 3:41 PM EST Obesity TSH, 3RD GENERATION Routine 06/19/2016 3 :41 PM EST Screening for thyroid disorder T4, FREE, SERUM Routine 06/19/2016 3:41 PM EST Screening for thyroid disorder HEMOGLOBIN A1C Routine 06/19/2016 3:41 PM EST Obesity documented in this encounter Results * Due to [place] state law, this organization might not be sharing negative HIV tests. * HEMOGLOBIN A1C (06/19/2016 3:41 PM EST) Hemoglobin A1C 4.9 <5.7 % of total Hgb [facility] Comment: {HEMOGLOBIN A1c {[id number]) According to ADA guidelines, hemoglobin A1c <7.0% represents optimal control in non- diabetic patients. Different metrics may apply to specific patient populations. Standards of Medical Care in Diabetes-2013. Diabetes Care. 2013;36:s11-s66 For the purpose of screening for the presence of diabetes <5.7% Consistent with the absence of diabetes 5.7-6.4% Consistent with increased risk for diabetes (prediabetes) >or=6.5% Consistent with diabetes This assay result is consistent with a decreased risk of diabetes. Currently, no consensus exists for use of hemoglobin A1c for diagnosis of diabetes for children. Estimated Average Glucose 97 mg/dL (calc) [facility] Comment:{MEAN PLASMA GLUCOSE {[id number]) 06/19/2016 3:41 PM EST 06/19/2016 8:48 PM EST Narrative Resulting Agency Comment [id number] us Aimsha Holt DO LABORATORY Final Result [facility] [address] [place] [address] * T4, FREE, SERUM (06/19/2016 3:41 PM EST) FT4 1.0 0.8 - 1.4 ng/dL [facility] Comment:{T4, FREE {[id number]) 06/19/2016 3:41 PM EST 06/19/2016 8:48 PM EST Narrative Resulting Agency Comment [id number] [employer] DO LABORATORY Final Result Performing Organization Address [facility] Co de Phone Number [facility] [address] [place] [address] * TSH, 3RD GENERATION (06/19/2016 3:41 PM EST) TSH 2.79 mIU/L [facility] Comment: {TSH {[id number]) Reference Range 1-19 Years 0.50-4.30 Ranges First trimester 0.26-2.66 Second trimester 0.55-2.73 Third trimester 0.43-2.91 06/19/2016 3:41 PM EST 06/19/2016 8:48 PM EST Narrative Resulting Agency Comment [id number] Amisha [facility] DO LABORATORY Final Result Performing Organization Address [facility] Co de Phone Number [facility] [address] [place] [address] * LIPID PROFILE + FASTING GLUCOSE (06/19/2016 3:41 PM EST) Cholesterol 144 125 - 170 mg/dL [facility] Comment:{CHOLESTEROL, TOTAL {[id number]) HDL Cholesterol 47 36 - 76 mg/dL [facility] Comment:{HDL CHOLESTEROL {[id number]) Triglyceride 48 40 - 136 mg/dL [facility] Comment:{TRIGLYCERIDES {[id number]) LDL Cholesterol 87 <110 mg/dL (calc) [facility] Comment: {LDL-CHOLESTEROL {[id number]) Desirable range <100 mg/dL for patients with CHD or diabetes and <70 mg/dL for diabetic patients with known heart disease. CHOL/HDL Ratio 3.1 < OR = 5.0 (calc) [facility] Comment:{CHOL/HDLC RATIO {[id number]) Cholesterol Non-HDL 97 <120 mg/dL (calc) [facility] Comment:{NON HDL CHOLESTEROL {[id number]) Glucose 87 65 - 99 mg/dL [facility] Comment: {GLUCOSE {[id number]) Fasting reference interval 06/19/2016 3:41 PM EST 06/19/2016 8:48 PM EST Narrative Resulting Agency Comment [id number] Amisha Varghese Rebecca DO LABORATORY Final Result Performing Organization Address [facility] Co de Phone Number [facility] [address] [place] [address] * ASPARTATE AMINOTRANSFERASE (AST), SERUM (06/19/2016 3:41 PM EST) AST (SGOT) 16 12 - 32 U/L [facility] Comment:{AST {[id number]) 06/19/2016 3:41 PM EST 06/19/2016 8:48 PM EST Narrative Resulting Agency Comment [id number] Amisha Holt DO LAB SAME DAY RESULT Final Resu lt Performing Organization Address [facility] Co de Phone Number [facility] [address] [place] [id number] * ALANINE AMINOTRANSFERASE (ALT), SERUM (06/19/2016 3:41 PM EST) ALT (SGPT) 28 5 - 32 U/L [facility] Comment:{ALT {[id number]) 06/19/2016 3:41 PM EST 06/19/2016 8:48 PM EST Narrative Resulting Agency Comment [id number] Amisha Di Rebecca DO LAB SAME DAY RESULT Final Resu lt Performing Organization Address [facility] de Phone Number [facility] [address] [place] [address] documented in this encounter Visit Diagnoses Diagnosis Obesity Obesity, unspecified Need for lipid screening Screening for lipoid disorders Screening for thyroid disorder documented in this encounter Care Teams Locksmith Relationship Specialty Start Date End Date Amisha Holt DO [address] [place] [address] PCP - General 07/04/09 07/26/20 documented as of this encounter
--- NOTE | 2025-04-09 04:18 | ED_ITS ---
HPI - General Adult General Chief complaint: Headache Stated complaint: Migraine Time Seen by Provider: 04/09/25 04:18 Source: patient Mode of arrival: ambulatory Limitations: no limitations History of Present Illness ED Provider: Moris MARTELL HPI narrative: The patient is a 25-year-old female with a history of migraines presenting to the ED for evaluation of migraine headache. The patient reports she woke 2 hours ago we will migraine headache with the associated nausea and 1 episode of last time nonbloody vomitus, as well as photophobia. The patient reports these symptoms are similar to previous migraines. The patient reports last migraine requiring ED intervention was approximately 1 year ago. The patient reports she takes nighttime Flexeril as prescribed by her neurologist as her migraines with thought to be secondary to eye movements/strain. The patient reports she took her Flexeril at 09:00 but woke 2 hours ago with symptoms as stated above. The patient denies associated fever/chills, chest pain, shortness of breath, cough, focal neurological deficit, or dizziness. The patient denies any recent fall, car accident, or blunt head trauma, denies anticoagulation. Related Data Home Medications ?Medication ?Instructions ?Recorded ?Confirmed albuterol sulfate 90 mcg/actuation 2 puff inhalation Q 4H PRN wheezing 12/10/23 aerosol inhaler bupropion HCl 150 mg 24 hr tablet, 150 mg PO DAILY 02/24 extended release cyclobenzaprine 5 mg tablet 5 mg PO BEDTIME PRN muscle spasm 12/10/23 propranolol 20 mg tablet 20 mg PO BID 12/10/23 sertraline 100 mg tablet 150 mg PO DAILY 12/10/23 vedolizumab 300 mg intravenous 300 mg IV Q4W 12/10/23 solution (Entyvio) Previous Rx's ?Medication ?Instructions ?Recorded amoxicillin 875 mg tablet 875 mg PO BID 7 days #14 tab s 12/10/23 omeprazole 20 mg capsule,delayed 20 mg PO DAILY #14 ca ps 02/09/24 release ciprofloxacin 0.3 %-dexamethasone 4 drp otic (ears) BI D 7 days #7.5 02/22/24 0.1 % ear drops,suspension mL (Ciprodex) Allergies Allergy/AdvReac Type Severity Reaction Status Date / Time menthol (From [employer]) Allergy Intermediate WELTS Verified 04/09/25 03:45 methyl salicylate (From [facility] Allergy Intermediate WELTS Verified 04/09/25 03:45 HOT) doxycycline Allergy Hives Verified 04/09/25 03:45 oxycodone Allergy Hives Verified 04/09/25 03:45 Review of Systems Review of Systems: Yes all other systems are reviewed and are negative [facility] Social History Social History Alcohol intake: current Alcohol intake frequency: a few times a month Patient Tobacco Use Status: Never used Tobacco Smoked in Last 30 Days: No Use of substances other than those prescribed or required for medical reasons: No Advance Directives: No Advance Directives Information Provided: Yes Patient : No Physical Exam ED Vital Signs: Vital Signs - 24 hr 04/09/25 03:43 04/09/25 06:39 04/09/25 06:40 Temperature 98.2 F 98.0 F 98.0 F Pulse Rate 111 H 98 98 Respiratory Rate 20 16 16 Blood Pressure 143/78 H 125/83 125/83 Pulse Oximetry 95 99 99 Oxygen Delivery Method Room Air Room Air Room Air BMI result Body Mass Index 50.5 CONSTITUTIONAL: The patient appears uncomfortable, but otherwise non-toxic, well nourished and in no acute distress. Vital signs as documented. HEAD: Atraumatic, normocephalic. EYES: EOMs intact, pupils equal and reactive to light, photophobia noted. Conjunctiva clear, no exudate. ENT: Nares patent, no discharge. Airway patent, no audible stridor, visible mucosa is pink and moist without noted lesions. NECK: Trachea is midline, no obvious masses or gross abnormalities. CHEST: Symmetric movement, normal appearance. LUNGS: LS present and CTAB, no w/r/r. Non-labored work of breathing. CARDIAC: Regular Rhythm, S1/S2 appreciated, no murmurs, rubs or gallops. ABDOMEN: Abdomen soft and non-tender x4 quadrants, no palpable masses or organomegaly. : Deferred. EXTREMITIES: Normal tone, moves all extremities spontaneously without reported pain. No obvious acute injury or deformity noted. NEURO: Alert and oriented x3, CN II-XII intact. Cerebellar Functioning intact. No sensory or motor deficits. Speech clear and appropriate. PSYCH: normal affect, appropriate eye contact, fluid speech, with appropriate response to questioning. No reported suicidality or homicidality. SKIN: Warm, dry, color appropriate, normal turgor. No rashes noted. Medications Administered Discontinued Medications Generic Name Dose Route Start Last Admin Trade Name González PRN Reason Stop Dose Admin Cyclobenzaprine HCl 10 mg 04/09/25 04:24 04/09/25 05:06 Cyclobenzaprine Hcl 10 Mg Tablet PO 04/09/25 04:25 10 mg ONCE ONE Administration Diphenhydramine HCl 50 mg 04/09/25 04:24 04/09/25 05:06 Diphenhydramine Hcl 50 Mg/Ml Vial IVPUSH 04/09/25 04:25 50 mg ONCE ONE Administration Sodium Chloride 1,000 mls @ 999 mls/hr 04/09/25 04:30 04/09/25 06:39 Ns IV 04/09/25 05:30 Infused .Q1H1M RAH Infusion Ketorolac Tromethamine 15 mg 04/09/25 04:24 04/09/25 05:06 Ketorolac Tromethamine 15 Mg/Ml Vial IVPUSH 04/09/25 04:25 15 mg ONCE ONE Administration Metoclopramide HCl 10 mg 04/09/25 04:24 04/09/25 05:06 Metoclopramide Hcl 10 Mg/2 Ml Vial IVPUSH 04/09/25 04:25 10 mg ONCE ONE Administration Medical Decision Making Medical Decision Making MDM Narrative: 4:27 AM 04/09/2025 (Ximena MARTELL): The patient is a 25-year-old female with a history of migraines presenting to the ED for evaluation of migraine headache. The patient reports she woke 2 hours ago we will migraine headache with the associated nausea and 1 episode of last time nonbloody vomitus, as well as photophobia. The patient reports these symptoms are similar to previous migraines. The patient reports last migraine requiring ED intervention was approximately 1 year ago. The patient reports she takes nighttime Flexeril as prescribed by her neurologist as her migraines with thought to be secondary to eye movements/strain. The patient reports she took her Flexeril at 09:00 but woke 2 hours ago with symptoms as stated above. The patient denies associated fever/chills, chest pain, shortness of breath, cough, focal neurological deficit, or dizziness. The patient denies any recent fall, car accident, or blunt head trauma, denies anticoagulation. On exam patient appears uncomfortable but without focal neurological deficit. The patient's symptoms will be treated with migraine cocktail, Flexeril, and reassessment. 5:37 AM 04/09/2025 (Ximena MARTELL): Patient appears to have improved following interventions, is currently sleeping comfortably. Patient will be treated for discharge and signed out to oncoming provider for discharge pending no recurr ence of symptoms. 06:43 I assumed care of this patient from my colleague, physician assistant controller Moris Douglas at 06:00 hours. Nurse reports that the patient is feeling better therefore the patient will be discharged home. Admission/Observation Consideration of admission/observation: Escalation of care including admission/observation considered External Record Review External record reviewed: Outpatient record and Prior outpatient labs Discharge Plan Discharge Clinical Impression: Migraine Patient Disposition: Home, Self-Care Instructions: Migraine Headache (ED) Additional Instructions: Thank you for choosing [facility] Emergency Department for your care today. You were seen and evaluated today for a migraine headache. Thankfully your symptoms were similar to your previous migraine headaches, and improved following interventions in the ED. At this time there is no indication for admission to the hospital or continued ED observation, and it is safe to discharge you home. Please stay well hydrated and get plenty of rest. Please continue taking all your regularly prescribed medications as directed. Please follow up with your neurologist for continued management of your symptoms. Please also follow up with your primary care physician for re-evaluation, additional management of your symptoms, and continued preventative care. If you do not have a primary care physician, please call the [facility] at [phone] to establish a new primary care physician. While waiting to establish your new primary care physician, you can call our [facility] at [phone] for non-emergency needs. Please return to the emergency department if you develop a severe or sudden change in your symptoms, a fever over 100.4 that does not improve with Tylenol or Ibuprofen, recurrent vomiting, or any other new or worsening symptoms or concerns. Prescriptions: No Action ciprofloxacin-dexamethasone [Ciprodex] 0.3-0.1 % drops,suspension 4 drp otic (ears) BID 7 Days Qty: 7.5 0RF omeprazole 20 mg capsule,delayed release(DR/EC) 20 mg PO DAILY Qty: 14 0RF cyclobenzaprine 5 mg tablet 5 mg PO BEDTIME PRN (Reason: muscle spasm) albuterol sulfate 90 mcg/actuation HFA aerosol inhaler 2 puff inhalation Q4H PRN (Reason: wheezing) bupropion HCl 150 mg tablet extended release 24 hr 150 mg PO DAILY sertraline 100 mg tablet 150 mg PO DAILY Entyvio 300 mg recon soln 300 mg IV Q4W Rx Instructions: administer week 6 of treatment propranolol 20 mg tablet 20 mg PO BID amoxicillin 875 mg tablet 875 mg PO BID 7 Days Qty: 14 0RF Referrals: Katlyn Peters [Other] Clinical Impression: Migraine Interventions: ED Discharge Assessment Last Done: 04/09/25 06:40 Print Language: Moldovan
[2025-04-09 06:39] VITALS: BP 125/83; PULSE 98; RESP 16; TEMP 36.7; O2SAT 99
[2025-04-09 06:40] VITALS: BP 125/83; PULSE 98; RESP 16; TEMP 36.7; O2SAT 99
== END 2025-04-09 06:45 | disposition home or self-care (01) ==
PROVIDERS: Emergency Provider Emergency Medicine Emergency Medical Services; PCP Physician Assistant Medical
DX: G43.909 Migraine, unspecified, not intractable, without status migrainosus (principal); H53.143 Visual discomfort, bilateral; Z79.899 Other long term (current) drug therapy
CPT/HCPCS: 99284; J1200; J1885; J2765